=== PATIENT | female | born 1965 | race Two or more races ===

== ENCOUNTER 2018-09-08 21:14 | Inpatient (IN) | payer OTHER ==
[~2018-09-08] VITALS: Ht 157.5 cm; Wt 53.2 kg
--- NOTE | 2018-09-08 21:15 | NUR ---
BIB. C/O "WITNESSED SEIZURE ON SITE" PT BROUGHT IN UNRESPONSIVE. MD AWARE AND AT BEDSIDE.
--- NOTE | 2018-09-08 21:19 | NUR ---
PT INTUBATED BY DR PRINGLE. 7.5 ET TUBE @ 21
[2018-09-08 21:21] VITALS: BP 156/111
[2018-09-08] MEDS ORDERED: PROPOFOL 100 ML IV ONE (21:22)
--- NOTE | 2018-09-08 21:22 | NUR ---
RT @2119 PT INTUBATED BY ER WITH 7.5 ETT @21CM ON THE LIP. POSITIVE COLOR CHANGE ON CO2 DETECTOR, MIST IN TUBE, EQUAL CHEST RISE. PT PLACED ON MECH VENT ON MD ORDERED SETTINGS OF AC MODE RR 16, VT 500, FIO2 100%, PEEP 5.
[2018-09-08] MEDS ORDERED: IV NS 0.9% 1,000 ML BAG IV ONE ×2 (21:30→22:00)
[2018-09-08] MEDS ORDERED: ETOMIDATE 2 MG/ML VIAL IV ONE (21:30)
[2018-09-08] MEDS ORDERED: ROCURONIUM BROMIDE 100 MG/10 ML VIAL IV ONE (21:30)
[2018-09-08 21:38] LABS: BASOPHILS % (AUTO) 0.1 % (0.0-2.0); HEMATOCRIT 22 % (33-45); HEMOGLOBIN 7.5 g/dL (11.5-14.8); LYMPHOCYTES # (AUTO) 0.3 /CMM (0.8-4.8); LYMPHOCYTES % (AUTO) 2.3 % (20.0-44.0); MEAN CORPUSCULAR HGB CONC 33 g/dl (31.0-36.0); MEAN CORPUSCULAR VOLUME 96 fL (82-100); MONOCYTES # (AUTO) 0.3 /CMM (0.1-1.30); MONOCYTES % (AUTO) 2.6 % (2.0-12.0); NEUTROPHILS # (AUTO) 11.4 /CMM (1.8-8.9); PLATELET COUNT (AUTO) 252 /CMM (150-450); RED BLOOD CELL COUNT(AUTO) 2.35 MIL/uL (4.0-5.2)
[2018-09-08] MEDS ORDERED: CEFEPIME 1 GM VIAL IV STA (21:40)
[2018-09-08] MEDS ORDERED: PROPOFOL 100 ML ONE (21:43)
[2018-09-08 21:46] LABS: CALCIUM, SERUM 8.5 mg/dL (8.5-10.1); CARBON DIOXIDE 17 mmol/L (21-32); CHLORIDE 102 mmol/L (98-107); CREATININE 1.1 mg/dL (0.6-1.3); GLUCOSE 170 mg/dL (74-106); POTASSIUM 5.1 mmol/L (3.5-5.1); SODIUM SERUM 132 mmol/L (136-145); UREA NITROGEN, BLOOD 28 mg/dL (7-18)
[2018-09-08] MEDS ORDERED: LEVETIRACETAM (500MG) 1,000 MG in IV NS 0.9% 100 ML IV STA (21:47)
[2018-09-08 21:49] LABS: SERUM AMMONIA 7 umol/L (11-32)
[2018-09-08 21:52] LABS: ALANINE AMINOTRANSFERASE 23 U/L (12-78); ALBUMIN 2.5 g/dL (3.4-5.0); ALCOHOL, BLOOD < 3 mg/dL (0-0); ALKALINE PHOSPHATASE 67 U/L (46-116); ASPARTATE AMINOTRANSFERASE 21 U/L (15-37); BILIRUBIN,TOTAL 0.2 mg/dL (0.2-1.0); TOTAL PROTEIN, SERUM 6.8 g/dL (6.4-8.2)
[2018-09-08 21:53] LABS: ACETAMINOPHEN < 2 ug/ml (10-30); SALICYLATE < 2.8 mg/dL (2.8-20.0)
[2018-09-08] MEDS ORDERED: FENTANYL PF 100MCG/2ML AMPUL ONE (21:55)
[2018-09-08] MEDS ORDERED: VANCOMYCIN 1 GM in IV D5W 250 ML IV ONE (22:00)
[2018-09-08] MEDS ORDERED: FENTANYL PF 100MCG/2ML AMPUL IV ONE (22:00)
--- NOTE | 2018-09-08 22:01 | NUR ---
REPORTED LACTIC ACID OF 3.[address] PRINGLE
[2018-09-08 22:17] LABS: APPEARANCE,URINE Clear (CLEAR); BILIRUBIN,URINE Negative (NEGATIVE); BLOOD, URINE Moderate Ery/uL (NEGATIVE); COLOR,URINE Yellow (YELLOW); KETONES,URINE Negative (NEGATIVE); LEUKOCYTE ESTERASE ,URINE Negative (NEGATIVE); NITRITE, URINE Negative (NEGATIVE); PH,URINE 6.5 (5.0-8.0); PROTEIN,URINE >=300 mg/dl (NEGATIVE); UGLUCOSE Negative (NEGATIVE); UROBILINOGEN,URINE 0.2 EU/dL (0.2)
[2018-09-08] MEDS ORDERED: LEVETIRACETAM (500MG) 500 MG/5 ML VIAL IV ONE (22:29)
[2018-09-08] MEDS ORDERED: MEROPENEM 1 G VIAL IV ONE (22:29)
[2018-09-08] MEDS ORDERED: VANCOMYCIN 1 GM VIAL ONE (22:30)
[2018-09-08 22:33] LABS: THYROID STIMULATING HORMONE 6.227 uIU/mL (0.358-3.74)
[2018-09-08] MEDS ORDERED: CEFEPIME 1 GM VIAL ONE (22:35)
[2018-09-08 22:41] LABS: ABG OXYGEN SATURATION 99.1 % (92.0-98.5); ABG PCO2 35.1 mmHg (35.0-45.0); ABG PH 7.368 (7.350-7.450); ABG PO2 432.9 mmHg (75.0-100.0); COHb 0.3 % (0.5-1.5); MetHb 0.9 % (0.0-1.5); O2Hb 97.9 % (94.0-97.0); PEEP,BG 5 cm H2O; SITE, ABG Right Radial; VT, ABG 500 mL
[2018-09-08 22:46] LABS: RBC,URINE 21-50 /HPF (0-2)
[2018-09-08 22:47] LABS: BACTERIA,URINE None seen /HPF (None Seen); HYALINE CASTS, URINE Few /LPF (None Seen); SQUAMOUS EPITHELIAL CELL,UR Few /HPF (None Seen)
[2018-09-08] MEDS ORDERED: ACETAMINOPHEN 325 MG TABLET PO PRN (23:00)
[2018-09-08] MEDS ORDERED: ONDANSETRON HCL/PF 4 MG/2 ML VIAL IVP PRN (23:00)
[2018-09-08] MEDS ORDERED: CEFEPIME 1 GM in IV NS 0.9% 50 ML IV SCH (23:30)
[2018-09-08] MEDS ORDERED: IV D5/0.45 NACL 1,000 ML IV ONE (23:30)
--- NOTE | 2018-09-08 23:55 | NUR ---
REPORT GIVEN TO PRAKASH BAILEY.
[2018-09-09] VITALS (51 sets, daily range): BP systolic 84–182; BP diastolic 58–122
[2018-09-09] MEDS ORDERED: METRONIDAZOLE 500MG/ NS 100ML 100 ML IV ONE (00:10)
[2018-09-09] MEDS: METRONIDAZOLE 500MG/ NS 100ML 500 MG in PREMIX 1 EA IV SCH ×4 (00:11→22:34)
[2018-09-09] MEDS ORDERED: PRED5TAB48 PO (00:48)
[2018-09-09] MEDS ORDERED: HYDR200T4 PO (00:48)
[2018-09-09] MEDS ORDERED: LEVO112T2 PO (00:48)
[2018-09-09] MEDS ORDERED: CEFEPIME 1 GM VIAL ONE (00:50)
[2018-09-09] MEDS: PROPOFOL 100 ML IV PRN ×4 (00:51→19:52)
--- NOTE | 2018-09-09 01:00 | NUR ---
RN NOTES 23:45 PM - ADMITTED A PATIENT FROM ER ORALLY INTUBATED WITH ETT AND VENT SETTING TOLERATED WELL. NO ACUTE RESPIRATORY DISTRESS. RESPONSIVE TO PAIN AND TACTILE STIMULI.NO FACIAL COMPLAINED OF PAIN. AFEBRILE. PT IS SEDATED WITH DIPRIVAN ST ON TELE MONITOR. PERIPHERAL PULSES ARE STRONG. IV SITE ON RAC G 18 REJ G 20 RIGHT HAND G 20 AND FRANCESCA PICC LINE RUNNING WITH PROPOFOL, RECEIVED FROM ER @ 25 MCG/KG/MIN. LAB VALUE RESULT LACTIC 2.1, PROTOCOL INITIATED BY TITRATED PROTOCOL ORDER , FAMILY CAME AT BEDSIDE STATING THAT THE PATIENT HAD LAP BAND REMOVAL ABOUT 3 WEEKS AGO AT [facility]. KEPT PT CLEAN AND DRY , TURNED AND REPOSITIONED FOR COMFORT WILL CONTINUE TO MONITOR.
[2018-09-09 01:19] LABS: CSF GLUCOSE 62 mg/dL (40-70)
[2018-09-09 01:20] LABS: CSF PROTEIN 59.7 mg/dL (15-45)
[2018-09-09] MEDS ORDERED: LEVOTHYROXINE SODIUM 112 MCG TABLET PO SCH (06:00)
--- NOTE | 2018-09-09 08:10 | NUR ---
RN NOTES OGT PLACED WITH GOOD RESIDUAL AND HEARD GURGLING SOUND WITNESSED BY KIANNA BAILEY.
--- NOTE | 2018-09-09 08:20 | NUR ---
RN NOTES NOTED PATIENT WITH TEMPERATURE 101.1, COOLING MEASURES PROVIDED. TYLENOL PRN GIVEN ORDERED WILL MONITORED PT CLOSELY
--- NOTE | 2018-09-09 08:29 | NUR ---
FANCY SEWER NOTE RCVD CALL FROM DR. MCGEE, RADIOLOGIST WITH RECOMMENDATION OF PULLING ETT OUT ABOUT 1.5 CM. REPORT NOT PUBLISHED YET, LYNN HURLEY INFORMED. WILL F/U WITH MD FOR ORDER.
[2018-09-09] MEDS ORDERED: HYDROXYCHLOROQUINE 200 MG TABLET PO SCH (09:00)
[2018-09-09] MEDS ORDERED: PANTOPRAZOLE 40 MG VIAL IV SCH (09:00)
[2018-09-09] MEDS ORDERED: LEVETIRACETAM (500MG) 500 MG in IV NS 0.9% 100 ML IV SCH (09:00)
[2018-09-09] MEDS ORDERED: FEE PK DOSING 1 MIN EA MC ONE (09:11)
[2018-09-09 09:22] LABS: ABG OXYGEN SATURATION 98.9 % (92.0-98.5); ABG PCO2 22.3 mmHg (35.0-45.0); ABG PO2 199.8 mmHg (75.0-100.0); AaDO2 131.6 mmHg; MetHb 0.6 % (0.0-1.5); O2Hb 98.3 % (94.0-97.0); SITE, ABG Right Radial
--- NOTE | 2018-09-09 09:44 | NUR ---
RN NOTES 09:05 AM - CALLED LILLIAN HOSPITALITY SPECIALIST INFORMED ABOUT THE PATIENT CXY THAT ENDOTRACHEAL TUBE APPX. 1.3 CM ABOVE THE RAVEN AND RECOMMEND RETRACTION PER HOSPITALITY SPECIALIST AND RT TO PULL OUT 2 CM 09:25 AM - ABG RESULT INFORMED Ph 7.5 PCO2 22.3 PO2 199.8 HCO3 17 PER LILLIAN WILL WAIT FOR IRRIGATOR HEAD AND HE'LL DO HIS ROUNDS.
--- NOTE | 2018-09-09 09:45 | NUR ---
RN NOTES RT PULLED OUT 2CM , [facility] WILL FO[facility] TO VERIFY.
[2018-09-09] MEDS ORDERED: ETOMIDATE 2 MG/ML VIAL IV ONE (09:55)
[2018-09-09] MEDS ORDERED: ROCURONIUM BROMIDE 50 MG/5 ML IV ONE (09:55)
--- NOTE | 2018-09-09 09:59 | NUR ---
RT PT REC'D WITH ETT @21CM LIP LINE ON MECHANICAL VENT TOLERATING SETTINGS. ET TUBE PATENT AND SECURE, VENT ALARMS ON AND AUDIBLE AND PLUGGED IN RED OUTLET. PT SUCTIONED WITH MODERATE AMOUNT OF PALE YELLOW SECRETIONS. ETT WAS PULLED BACK 2CM AND NOW AT 19CM LIP LINE PER MD ORDER. NO RESPIRATORY DISTRESS NOTED AT THIS TIME. WILL CONTINUE TO MONITOR. Addendum: 09/09/18 at 1004 by MARCUS DIGGS RT Amended: Links added.
[2018-09-09] MEDS ORDERED: PANTOPRAZOLE 40 MG/PACK PACK GT SCH (10:00)
--- NOTE | 2018-09-09 10:51 | NUR ---
REAMING PRESS OPERATOR NOTE SEEN BY UPDATED ABOUT PATIENT CONDITION WITH XRAY REPORT.GOT NEW ORDER TO TAKE OFF PEEP.RT MADE AWARE.WILL CONTINUE TO MONITOR.
--- NOTE | 2018-09-09 10:54 | NUR ---
BABBITT SPINNER NOTE SEEN BY CROP SETTING OUT MACHINE OPERATOR MADE AWARE ABOUT BP TRENDING LOW.OFF FROM PEEP AND IVF.GOT NEW ORDERS.WILL CONTINUE TO MONITOR.
[2018-09-09] MEDS ORDERED: PHARMACY TO CHANGE PO MEDS TO GT/NG XX PRN (11:00)
[2018-09-09] MEDS ORDERED: ASPIRIN 81 MG TAB.CHEW GT SCH (11:30)
[2018-09-09] MEDS ORDERED: IV LR 500 ML IV ONE (11:30)
[2018-09-09] MEDS ORDERED: NOREPINEPHRINE 16 MG in IV D5W 500 ML IV PRN (11:30)
[2018-09-09] MEDS: ASPIRIN 81 MG TAB.CHEW NG SCH (11:36)
[2018-09-09 12:00] LABS: BASOPHILS % (AUTO) 0.1 % (0.0-2.0); EOSINOPHILS % (AUTO) 0.4 % (0.0-6.0); LYMPHOCYTES # (AUTO) 0.2 /CMM (0.8-4.8); LYMPHOCYTES % (AUTO) 1.8 % (20.0-44.0); MEAN CORPUSCULAR HGB CONC 34 g/dl (31.0-36.0); MEAN CORPUSCULAR VOLUME 94 fL (82-100); MONOCYTES # (AUTO) 0.2 /CMM (0.1-1.30); MONOCYTES % (AUTO) 1.7 % (2.0-12.0); PLATELET COUNT (AUTO) 166 /CMM (150-450); WHITE BLOOD COUNT (AUTO) 11.5 K/uL (4.3-11.0)
[2018-09-09] MEDS ORDERED: IV LR 1000 ML 500 ML IV ONE (12:00)
[2018-09-09] MEDS ORDERED: methylPREDNISolone SOD SUCC 125 MG/2ML VIAL IV SCH (12:00)
[2018-09-09] MEDS ORDERED: VANCOMYCIN 1 GM in IV D5W 250 ML IV SCH (12:00)
[2018-09-09 12:03] LABS: RED BLOOD CELL COUNT(AUTO) 1.83 MIL/uL (4.0-5.2)
--- NOTE | 2018-09-09 12:03 | NUR ---
RT NOTE PT ETT PULLED BACK TO 18CM LIP LINE FROM 19CM, AND NEW VENT CHANGES APPLIED PER MD ORDERS. PT COMFORTABLE, NO SOB NOTED AT THIS TIME. WILL CONTINUE TO MONITOR. Addendum: 09/09/18 at 1205 by MARCUS DIGGS RT Amended: Links added.
[2018-09-09 12:05] LABS: HEMATOCRIT 17 % (33-45); HEMOGLOBIN 5.8 g/dL (11.5-14.8)
[2018-09-09 12:27] LABS: LYMPHOCYTES % (MANUAL) 1 % (16-48); MONOCYTES % (MANUAL) 1 % (0-11.0); NEUTROPHILS % (MANUAL) 98 (42-76)
--- NOTE | 2018-09-09 13:00 | NUR ---
GRAPHIC ARTS TECHNICIAN NOTE CBC RESULT RELAYED TO WITH LOW H/H RESULT.GOT NEW ORDERS.WILL CONTINUE TO MONITOR.
[2018-09-09 14:03] LABS: IRON, SERUM 5 ug/dl (50-175); TOTAL IRON BINDING CAPACITY 155 ug/dl (250-450)
[2018-09-09] MEDS: methylPREDNISolone SOD SUCC 1,000 MG in IV NS 0.9% 250 ML IV SCH (14:03)
[2018-09-09] MEDS: ACETAMINOPHEN 650 MG/20.3 ML UDC NG PRN (15:18)
[2018-09-09] MEDS ORDERED: LORATADINE 10 MG TABLET PO SCH (16:00)
--- NOTE | 2018-09-09 16:30 | NUR ---
OYSTER PICKER NOTE SEEN BY NEUROLOGIST,SPOKE TO THE .UPDATED ABOUT PATIENT CONDITION WITH VITALS AND NEUROLOGICAL STATUS.WILL CONTINUE TO MONITOR.SEEN BY ID WOODYARD CRANE OPERATOR DEMI ,UPDATED PATIENT CONDITION WITH LABS AND ELEVATED TEMP.GOT NEW ORDERS.GOT CALL FROM LAB THAT PATIENT HAS ANTIBODY IN BLOOD ,MIGHT TAKE ANOTHER 4 HOUR FOR BLOOD.
[2018-09-09] MEDS: AZTREONAM 1 G in IV NS 0.9% 100 ML IV SCH (17:19)
--- NOTE | 2018-09-09 19:23 | NUR ---
TAX FORM PREPARER NOTE. BLOOD TRANSFUSION NOT DONE YET.COMPENSATION AND BENEFITS ADVISOR DMITIY MADE AWARE.H/H NOW.GOT NEW ORDER.ENDORSED TO PM NURSE FOR URBANO.LEVOPHED FOR LOW BP.
[2018-09-09 20:14] LABS: HEMOGLOBIN 5.6 g/dL (11.5-14.8)
--- NOTE | 2018-09-09 21:10 | NUR ---
RECEIVED NOTICE FROM LAB THAT PT PRBC WAS READY FOR APPAREL MANAGER. FIRST UNIT GIVEN AT THIS TIME. WILL MONITOR FOR ANY S/S OF ADVERSE REACTIONS. PT AFEBRILE WITH VS WNL.
[2018-09-09] MEDS: LEVETIRACETAM (500MG) 1,000 MG in IV NS 0.9% 100 ML IV SCH (21:36)
[2018-09-10] VITALS (60 sets, daily range): BP systolic 95–140; BP diastolic 52–102
--- NOTE | 2018-09-10 00:06 | NUR ---
PT REC'D ORALLY INTUBATED VIA ETT SZ 7.5 AT 18 CM @ THE LIP [facility]DE. NO RESP DISTRESS OR SOB NOTED. SX'D FOR THICK MOD AMT OF PALE YELLOW SECRETIONS. ALARMS ARE SET AND AUDIBLE. VENT PLUGGED INTO RED OUTLET. AMBU BAG BEDSIDE. WILL CONTINUE TO MONITOR. Addendum: 09/10/18 at 0008 by MIR FORRESTER RT Amended: Links added.
[2018-09-10] MEDS: AZTREONAM 1 G in IV NS 0.9% 100 ML IV SCH ×3 (00:17→17:07)
[2018-09-10] MEDS: PROPOFOL 100 ML IV PRN ×4 (01:38→20:46)
--- NOTE | 2018-09-10 03:49 | NUR ---
LAST BAG OF PRBC STARTED AND PT REMAINS AFEBRILE AND VS WNL. WILL CONTINUE TO MONITOR.
[2018-09-10] MEDS: METRONIDAZOLE 500MG/ NS 100ML 500 MG in PREMIX 1 EA IV SCH ×3 (06:32→22:38)
[2018-09-10] MEDS: LEVOTHYROXINE SODIUM 112 MCG TABLET NG SCH (06:36)
--- NOTE | 2018-09-10 07:20 | NUR ---
LAST BAG OF PRBC STILL INFUSING, PT STILL AFEBRILE WITH VS WNL. PT REMAINS INTUBATED AND SEDATED. VENT SETTING WELL TOLERATED AND NO ACUTE DISTRESS NOTED. ALL NEEDS ATTENDED TO PROMPTLY. ENDORSED CARE TO AM RN FOR CONTINUITY OF CARE.
[2018-09-10 07:46] LABS: ABG BASE EXCESS -6.8 mmol/L; ABG OXYGEN SATURATION 98.4 % (92.0-98.5); ABG PCO2 24.8 mmHg (35.0-45.0); ABG PH 7.433 (7.350-7.450); ABG PO2 156.3 mmHg (75.0-100.0); AaDO2 100.4 mmHg; COHb 0.3 % (0.5-1.5); MetHb 0.7 % (0.0-1.5); O2Hb 97.4 % (94.0-97.0); SITE, ABG Right Radial
--- NOTE | 2018-09-10 08:18 | NUR ---
ELECTRICAL REPAIRER NOTE RCVD PT SEDATED ON DIPRIVAN, INTUBATED TOLERATING ORDERED VENT SETTINGS. RESTRAINTS IN PLACE, CIRCULATION CHECKS DONE BILATERALLY, PULSES PRESENT, SKIN WARM TO TOUCH. SR ON MONITOR. OG-TUBE PLACEMENT VERIFIED BY ASPIRATION OF GASTRIC CONTENTS, CHACON TO GRAVITY DRAINING CLEAR, YELLOW URINE, IV SITES C/D/I/PATENT, NO S/O INFILTRATION/PHLEBITIS OBSERVED UPON FLUSHING. LAST PRBC INFUSED, VITALS REMAINED STABLE. WILL CONTINUE TO MONITOR PT FOR SAFETY AND COMFORT. BED IN LOW AND LOCKED POSITION. SEDATION VACATION DONE PT APPEARS DROWSY BUT ABLE TO FOLLOW COMMANDS AND ACKNOWLEDGE VERBAL INFORMATION. DR. YATES AT BEDSIDE UPDATED ON PT'S CONDITION.
[2018-09-10 08:57] LABS: BASOPHILS % (AUTO) 0.2 % (0.0-2.0); HEMATOCRIT 27 % (33-45); HEMOGLOBIN 9.2 g/dL (11.5-14.8); LYMPHOCYTES # (AUTO) 0.2 /CMM (0.8-4.8); LYMPHOCYTES % (AUTO) 1.6 % (20.0-44.0); MEAN CORPUSCULAR HGB CONC 34 g/dl (31.0-36.0); MEAN CORPUSCULAR VOLUME 92 fL (82-100); MONOCYTES # (AUTO) 0.2 /CMM (0.1-1.30); MONOCYTES % (AUTO) 1.4 % (2.0-12.0); NEUTROPHILS # (AUTO) 11.7 /CMM (1.8-8.9); NEUTROPHILS % (AUTO) 96.8 % (43.0-81.0); PLATELET COUNT (AUTO) 142 /CMM (150-450); RED BLOOD CELL COUNT(AUTO) 2.93 MIL/uL (4.0-5.2); WHITE BLOOD COUNT (AUTO) 12.1 K/uL (4.3-11.0)
[2018-09-10 09:07] LABS: CALCIUM, SERUM 7.8 mg/dL (8.5-10.1); POTASSIUM 4.2 mmol/L (3.5-5.1)
[2018-09-10] MEDS: LORATADINE 10 MG TABLET NG SCH (09:10)
[2018-09-10] MEDS: ASPIRIN 81 MG TAB.CHEW NG SCH (09:10)
[2018-09-10] MEDS: PANTOPRAZOLE 40 MG/PACK PACK NG SCH (09:11)
[2018-09-10] MEDS: LEVETIRACETAM (500MG) 1,000 MG in IV NS 0.9% 100 ML IV SCH ×2 (09:11→20:46)
[2018-09-10] MEDS: METOPROLOL TARTRATE 25 MG TABLET PO SCH ×2 (09:12→21:51)
[2018-09-10] MEDS: CYANOCOBALAMIN 1,000 MCG/ML VIAL IM SCH (12:14)
[2018-09-10] MEDS: methylPREDNISolone SOD SUCC 1,000 MG in IV NS 0.9% 250 ML IV SCH (13:08)
[2018-09-10] MEDS: IV NS 0.9% 1,000 ML IV PRN (13:10)
[2018-09-10] MEDS ORDERED: IV NS 0.9% 1,000 ML BAG IV PRN (13:30)
[2018-09-10] MEDS ORDERED: SOD FERRIC GLUC 125 MG in IV NS 0.9% 100 ML IV SCH (14:00)
--- NOTE | 2018-09-10 18:49 | NUR ---
RECREATION COUNSELOR NOTE PT REMAINS LIGHTLY SEDATED ON DIPRIVAN, EASILY AROUSED TO NAME, CONTINUES TO FOLLOW COMMANDS, SR ON MONITOR, TOLERATING ORDERED VENT SETTINGS, OG-TUBE CLAMPED, CHACON TO GRAVITY DRAINING CLEAR, YELLOW URINE (LILLIAN, HEAD OF BUSINESS DEVELOPMENT INFORMED ABOUT DECREASED URINARY OUTPUT AND IVF STARTED). RIGHT NECK AN DRUA PICC C/D/I/PATENT, NO S/O INFILTRATION/PHLEBITIS OBSERVED, IVF INFUSING ORDERED. PT'S CARE WILL BE ENDORSED TO LEGAL COUNSEL RN FOR CONTINUITY OF CARE, BED IN LOW AND LOCKED POSITION, CALL LIGHT WITHIN REACH.
[2018-09-10 19:57] LABS: OCCULT BLOOD STOOL NEGATIVE (NEGATIVE)
[2018-09-10] MEDS ORDERED: ATORVASTATIN 40 MG TABLET PO SCH (22:00)
[2018-09-11] VITALS (50 sets, daily range): BP systolic 121–186; BP diastolic 82–123
[2018-09-11] MEDS: AZTREONAM 1 G in IV NS 0.9% 100 ML IV SCH ×3 (01:07→16:38)
[2018-09-11] MEDS: IV NS 0.9% 1,000 ML IV PRN (03:03)
--- NOTE | 2018-09-11 04:26 | NUR ---
RT NOTE PT REC'D ORALLY INTUBATED VIA ETT SZ 7.5 AT 19 CM [facility] ON AC MODE. NO RESP DISTRESS OR SOB NOTED. SX'D FOR THICK small AMT OF clear SECRETIONS. ALARMS ARE SET AND AUDIBLE. VENT PLUGGED INTO RED OUTLET. AMBU BAG BEDSIDE. WILL CONTINUE TO MONITOR. Addendum: 09/11/18 at 0426 by MIR FORRESTER RT Amended: Links added.
[2018-09-11 04:39] LABS: BASOPHILS % (AUTO) 0.1 % (0.0-2.0); HEMATOCRIT 27 % (33-45); HEMOGLOBIN 9.1 g/dL (11.5-14.8); LYMPHOCYTES # (AUTO) 0.2 /CMM (0.8-4.8); LYMPHOCYTES % (AUTO) 1.6 % (20.0-44.0); MEAN CORPUSCULAR HGB CONC 34 g/dl (31.0-36.0); MEAN CORPUSCULAR VOLUME 93 fL (82-100); MONOCYTES # (AUTO) 0.2 /CMM (0.1-1.30); MONOCYTES % (AUTO) 1.6 % (2.0-12.0); NEUTROPHILS # (AUTO) 12.2 /CMM (1.8-8.9); NEUTROPHILS % (AUTO) 96.7 % (43.0-81.0); PLATELET COUNT (AUTO) 160 /CMM (150-450); RED BLOOD CELL COUNT(AUTO) 2.88 MIL/uL (4.0-5.2); WHITE BLOOD COUNT (AUTO) 12.6 K/uL (4.3-11.0)
[2018-09-11 04:54] LABS: ALBUMIN 1.9 g/dL (3.4-5.0); BILIRUBIN,TOTAL 0.3 mg/dL (0.2-1.0); CALCIUM, SERUM 7.8 mg/dL (8.5-10.1); POTASSIUM 3.8 mmol/L (3.5-5.1); TOTAL PROTEIN, SERUM 5.4 g/dL (6.4-8.2)
[2018-09-11] MEDS: PROPOFOL 100 ML IV PRN ×3 (05:27→20:35)
[2018-09-11] MEDS: LEVOTHYROXINE SODIUM 112 MCG TABLET NG SCH (06:35)
[2018-09-11] MEDS: METRONIDAZOLE 500MG/ NS 100ML 500 MG in PREMIX 1 EA IV SCH ×3 (06:35→22:59)
--- NOTE | 2018-09-11 07:45 | NUR ---
ICU/RN: Pt seen and examined at bedside by MCKAYLA Diaz. Updated on labs, pt status, no distress noted. New orders noted and carried out. Per HVAC/R SERVICE TECHNICIAN, case dw family at length telephonically. Will continue to monitor pt status.
[2018-09-11] MEDS ORDERED: DC PROPOFOL WHEN EXTUBATED XX PRN (08:00)
[2018-09-11] MEDS: LORATADINE 10 MG TABLET NG SCH (08:06)
[2018-09-11] MEDS: METOPROLOL TARTRATE 25 MG TABLET PO SCH ×2 (08:06→21:00)
[2018-09-11] MEDS: ASPIRIN 81 MG TAB.CHEW NG SCH (08:06)
--- NOTE | 2018-09-11 08:17 | NUR ---
RT PATIENT REC'D ORALLY INTUBATED ON MECH VENT AUGUSTO WELL. SEDATION TURNED OFF AND PATIENT AWAKE AND RESPONSIVE. PER MD ORDER PATIENT PLACED ON SIMV SPONT BREATHING TRIAL. VENT ALARMS CHECKED + AUDIBLE. PATIENT SUCTIONED WITH SMALL AMT OF PALE SEMI-THICK SECRETIONS. B/S DIM CLEAR. AMBU BAG AT [facility]. ALL SAFETY MEASURES IN PLACE. CONT TO MONITOR CLOSELY. Addendum: 09/11/18 at 0820 by BAILEE CAMARILLO RT Amended: Links added.
[2018-09-11] MEDS: PANTOPRAZOLE 40 MG/PACK PACK NG SCH (08:27)
[2018-09-11] MEDS: LEVETIRACETAM (500MG) 1,000 MG in IV NS 0.9% 100 ML IV SCH (08:56)
[2018-09-11] MEDS: CYANOCOBALAMIN 1,000 MCG/ML VIAL IM SCH (08:56)
[2018-09-11 09:15] LABS: ABG BASE EXCESS -9.6 mmol/L; ABG OXYGEN SATURATION 96.5 % (92.0-98.5); ABG PCO2 23.4 mmHg (35.0-45.0); ABG PH 7.388 (7.350-7.450); AaDO2 162.3 mmHg; COHb 0.3 % (0.5-1.5); MetHb 0.6 % (0.0-1.5); O2Hb 95.6 % (94.0-97.0); SITE, ABG Right Radial
[2018-09-11] MEDS: FUROSEMIDE 40 MG/4 ML VIAL IV SCH ×2 (09:15→15:25)
[2018-09-11 09:45] LABS: CHOLESTEROL 209 mg/dL (<200); HDL CHOLESTEROL 36 mg/dL (40-60); LDL 117 mg/dL (0-99); TRIGLYCERIDES 248 mg/dL (30-150)
--- NOTE | 2018-09-11 09:45 | NUR ---
ICU/RN: Dr Hardy rounds; updated on pt status. ABGs and labs reviewed. Orders noted and carried out.
--- NOTE | 2018-09-11 10:00 | NUR ---
ICU/RN: Pt s/p extubation; placed on NC at 6L/min. O2 sat 93%; Dr Hardy at bedside and aware.
--- NOTE | 2018-09-11 10:00 | NUR ---
RT PER DR GALLAGHER PATIENT WAS WEANED ON VENT AND EXTUBATED. PLACED ON 5L N/C MAINTAINING SPO2 ABOVE 92% WITH NO COMPLAINTS OF SOB Addendum: 09/11/18 at 1012 by BAILEE CAMARILLO RT Amended: Links added.
--- NOTE | 2018-09-11 11:30 | NUR ---
ICU/RN: Pt tolerated lunch, 50% intake. HOB elevated, aspiration precautions in place. at bedside assisting with ADL's.
[2018-09-11] MEDS: methylPREDNISolone SOD SUCC 1,000 MG in IV NS 0.9% 250 ML IV SCH (14:33)
--- NOTE | 2018-09-11 15:00 | NUR ---
ICU/RN: Pt noted to be increasingly tachypneic; placed on simple mask. Increased BP and HR from baseline. Will reassess effectiveness.
--- NOTE | 2018-09-11 15:15 | NUR ---
ICU/RN: Dr Hardy at bedside; pt tachypneic and anxious. Pt placed on BiPAP per MD order. Addendum: 09/11/18 at 2009 by JESUS MAZARIEGOS RN ABG drawn; reported to MD. Placed back on SM. Cont to monitor per MD.
[2018-09-11] MEDS ORDERED: FUROSEMIDE 40 MG/4 ML VIAL IV SCH (15:30)
[2018-09-11 15:33] LABS: ABG BASE EXCESS -9.7 mmol/L; ABG OXYGEN SATURATION 95.8 % (92.0-98.5); ABG PCO2 21.2 mmHg (35.0-45.0); ABG PH 7.406 (7.350-7.450); ABG PO2 86.7 mmHg (75.0-100.0); AaDO2 317.8 mmHg; COHb 0.2 % (0.5-1.5); MetHb 0.4 % (0.0-1.5); O2Hb 95.2 % (94.0-97.0); SITE, ABG Right Radial
--- NOTE | 2018-09-11 16:24 | NUR ---
RT PATIENT REQUIRED TO BE INTUBATED AGAIN. 7.5 ETT SECURED AT 21CM LIP. PLACED ON PREVIOUS VENT SETTINGS AUGUSTO WELL. VENT ALARMS CHECKED + AUDIBLE. AMBU BAG AT HOB Addendum: 09/11/18 at 1626 by BAILEE CAMARILLO RT Amended: Links added.
--- NOTE | 2018-09-11 16:30 | NUR ---
ICU/RN: Pt s/p intubation; pt with periods of desaturation in low to mid 80's upon removal of supplemental O2 during intubation. Dr Hardy and ER MD at bedside. Vent settings and other changes noted and carried out.
--- NOTE | 2018-09-11 17:00 | NUR ---
ICU/RN: , Bryant updated on pt status telephonically, will be in to see and sign consent for authorization to release medical records to obtain oncology MD notes.
[2018-09-11] MEDS: LORAZEPAM INJ 2 MG/ML VIAL IV PRN ×2 (17:27→20:41)
--- NOTE | 2018-09-11 17:30 | NUR ---
ICU/RN: Repeat ABG drawn; reported to MD with orders for vent changes. Noted and carried out. Currently sedated on diprivan at 45mcg/kg/min.
[2018-09-11 17:52] LABS: ABG BASE EXCESS -12.2 mmol/L; ABG OXYGEN SATURATION 98.3 % (92.0-98.5); ABG PCO2 27.5 mmHg (35.0-45.0); ABG PH 7.287 (7.350-7.450); ABG PO2 150.5 mmHg (75.0-100.0); COHb 0.1 % (0.5-1.5); MetHb 0.9 % (0.0-1.5); O2Hb 97.3 % (94.0-97.0); SITE, ABG Right Radial; VENT MODE, BG AC 12 450 +5 100%
--- NOTE | 2018-09-11 19:20 | NUR ---
ICU/RN: Pt in bed, eyes closed, HR improved from 150's to [address] SBP back within baseline. FC draining well to gravity with total of 1800 cc clear yellow out. OGT clamped. Restraint care rendered. Report given to LYNN Zendejas for URBANO. Faxed requests to pt's primary oncologist's office. Awaiting response.
[2018-09-11] MEDS ORDERED: LEVETIRACETAM SOL (5 ML) 100 MG/ML UDC GT SCH (21:00)
[2018-09-11] MEDS: KEPPRA 1000 MG in IV NS 100 ML IV SCH (21:09)
[2018-09-11] MEDS: ATORVASTATIN 40 MG TABLET GT SCH (22:00)
[2018-09-11] MEDS: hydrALAZINE HCL IV 20 MG VIAL IV PRN (22:54)
[2018-09-12] VITALS (52 sets, daily range): BP systolic 116–139; BP diastolic 62–95
[2018-09-12] MEDS ORDERED: METOPROLOL TARTRATE INJ 5 MG/5 ML AMPUL ONE (00:25)
[2018-09-12] MEDS: PROPOFOL 100 ML IV PRN ×4 (00:35→19:03)
[2018-09-12] MEDS: METOPROLOL TARTRATE INJ 5 MG/5 ML AMPUL IVP PRN (00:46)
[2018-09-12] MEDS: AZTREONAM 1 G in IV NS 0.9% 100 ML IV SCH ×3 (01:00→17:57)
[2018-09-12] MEDS: ACETAMINOPHEN 650 MG/20.3 ML UDC NG PRN (03:16)
--- NOTE | 2018-09-12 03:21 | NUR ---
RN NOTES RECEIVED PATIENT IN BED, SEDATED, AT BEDSIDE. NOTED INCREASED HEART RATE 136, LABORED AND SHALLOW BREATHING WITH RESPIRATION OF 35-45BPM. O2SAT 100%O ON BIPAP. ORDERS RECEIVED TO CHANGE PROTONIX TO PEPCID IV STARTING TOMORROW, CHANGE LOPRESSOR TO IV PRN Q6H. NOTED AND CARRIED OUT. ON PROPOFOL DRIP, NO SIDE EFFECTS NOTED. ATIVAN GIVEN FOR AGITATION. FACIAL GRIMACE NOTED. KEPT CLEAN AND DRY.
[2018-09-12 05:06] LABS: BASOPHILS % (AUTO) 0.1 % (0.0-2.0); HEMATOCRIT 31 % (33-45); HEMOGLOBIN 10.5 g/dL (11.5-14.8); LYMPHOCYTES # (AUTO) 0.2 /CMM (0.8-4.8); LYMPHOCYTES % (AUTO) 1.1 % (20.0-44.0); MEAN CORPUSCULAR HGB CONC 34 g/dl (31.0-36.0); MEAN CORPUSCULAR VOLUME 93 fL (82-100); MONOCYTES # (AUTO) 0.2 /CMM (0.1-1.30); MONOCYTES % (AUTO) 1.3 % (2.0-12.0); NEUTROPHILS # (AUTO) 15.5 /CMM (1.8-8.9); NEUTROPHILS % (AUTO) 97.5 % (43.0-81.0); PLATELET COUNT (AUTO) 206 /CMM (150-450); RED BLOOD CELL COUNT(AUTO) 3.33 MIL/uL (4.0-5.2); WHITE BLOOD COUNT (AUTO) 15.9 K/uL (4.3-11.0)
[2018-09-12 05:16] LABS: CALCIUM, SERUM 8.2 mg/dL (8.5-10.1); POTASSIUM 3.6 mmol/L (3.5-5.1)
--- NOTE | 2018-09-12 06:55 | NUR ---
RN NOTES FROM LAB CRITICAL LEVEL OF TROPONIN 5.721, RELAYED TO MD DR. CLEARY, WILL GIVE ORDERS LATER. FROM IMAGING, RESULT OF ENDOTRACHEAL TUBE SLIGHTLY CLOSE TO TRACHEA, NEEDS TO BE RETRACTED BY 1.5 CM AND IMPRESSION OF NEW NASAL GASTRIC WITH TIP IN STOMACH. KEPT CLEAN AND DRY. WILL ENDORSE TO AM SHIFT FOR CONTINUITY OF CARE
[2018-09-12] MEDS: METRONIDAZOLE 500MG/ NS 100ML 500 MG in PREMIX 1 EA IV SCH ×3 (07:05→23:22)
--- NOTE | 2018-09-12 07:08 | NUR ---
rn notes called rt, relayed result of imaging. spoke with huma. orders placed.
--- NOTE | 2018-09-12 08:14 | NUR ---
RIGGING HELPER NOTE RCVD PT SEDATED, INTUBATED, SR ON MONITOR, BILATERAL SOFT WRIST RESTRAINTS IN PLACE, CIRCULATION CHECKS DONE, PULSES PRESENT BILATERALLY, SKIN WARM TO TOUCH. EDEMA PRESENT ON BILATERAL LOWER EXTREMITIES AND BILATERAL HANDS. OG-TUBE PLACEMENT VERIFIED BY ASPIRATION OF GASTRIC CONTENT, CHACON TO GRAVITY DRAINING CLEAR, YELLOW URINE, IV SITES C/D/I/PATENT. NO S/O INFILTRATION/PHLEBITIS OBSERVED UPON FLUSHING. WILL CONTINUE TO MONITOR PT FOR SAFETY AND COMFORT. BED IN LOW AND LOCKED POSITION, CALL LIGHT WITHIN REACH, HEAD OF BED ELEVATED.
[2018-09-12 08:48] LABS: ABG BASE EXCESS -6.6 mmol/L; ABG OXYGEN SATURATION 98.5 % (92.0-98.5); ABG PCO2 23.8 mmHg (35.0-45.0); ABG PH 7.446 (7.350-7.450); ABG PO2 174.7 mmHg (75.0-100.0); AaDO2 83.1 mmHg; COHb 0.3 % (0.5-1.5); MetHb 0.7 % (0.0-1.5); O2Hb 97.5 % (94.0-97.0); PEEP,BG 5 cm H2O; SITE, ABG Right Radial; VENT MODE, BG AC MODE; VT, ABG 450 mL
[2018-09-12] MEDS: KEPPRA 1000 MG in IV NS 100 ML IV SCH ×2 (09:38→20:32)
[2018-09-12] MEDS: METOPROLOL TARTRATE 25 MG TABLET PO SCH ×2 (09:40→21:26)
[2018-09-12] MEDS: LORATADINE 10 MG TABLET NG SCH (09:40)
[2018-09-12] MEDS: FAMOTIDINE/PF INJ 20 MG/2 ML VIAL IV SCH ×2 (09:41→21:26)
[2018-09-12] MEDS: CYANOCOBALAMIN 1,000 MCG/ML VIAL IM SCH (09:41)
[2018-09-12] MEDS: LEVOTHYROXINE INJ 100 MCG VIAL IV SCH (09:41)
[2018-09-12] MEDS: FUROSEMIDE 100 MG/10 ML VIAL IV SCH ×3 (10:03→17:59)
--- NOTE | 2018-09-12 10:19 | NUR ---
CAT SITTER NOTE SEDATION VACATION DONE, PT ABLE TO OPEN EYES TO NAME AND FOLLOW SIMPLE COMMANDS SUCH OPENING AND CLOSING BILATERAL HANDS AND MOVING BILATERAL FEET. WILL CONTINUE TO MONITOR, PT ORIENTED TO PLACE, TIME AND SITUATION.
[2018-09-12] MEDS ORDERED: FEE EMEERGENCY 1 MIN EA MC ONE (10:47)
[2018-09-12] MEDS ORDERED: ETOMIDATE 2 MG/ML VIAL IV ONE (10:47)
[2018-09-12] MEDS ORDERED: SUCCINYLCHOLINE CHLORIDE 20 MG/ML VIAL IV ONE (10:47)
[2018-09-12 15:08] LABS: *HSV 2 DNA PCR Negative (Negative)
[2018-09-12] MEDS: methylPREDNISolone SOD SUCC 125 MG/2ML VIAL IV SCH (17:58)
--- NOTE | 2018-09-12 18:27 | NUR ---
RT END OF THE SHIFT REPORT, PT. 53 Y OLD FEMALE REC. @0700 AM ORALLY INTUBATED ETT #7.5 @ 21.5 CM LIP LINE. T/O MORNING ETT ADJUDTED (PULLED BACK 1.5 CM) PLACED AND SECURED 20 CM LIP LINE. ON VENT WITH NOTED SETTINGS, ALARMS ARE SET AND FUNCTIONAL, NO DISTRESS NOTED T/O SHIFT.VENT CHANGES PER DR. GALLAGHER RR TO 16 PT. SUX'D FOR MINIMAL WHITE LOSE SECRETIONS, BILATERALLY RHONCHI B/S AND EQUAL CHEST RISE NOTED. HME CHANGED, TRACTOR EXPERT DONE. PT. REMAIN STABLE AND AMBU BAG REMAIN AT THE BEDSIDE, REPORT WILL PASS TO PM SHIFT. Addendum: 09/12/18 at 1830 by ALDAIR CABRAL RT Amended: Links added.
--- NOTE | 2018-09-12 18:33 | NUR ---
EMPLOYMENT COORDINATOR NOTE PT REMAINS LIGHTLY SEDATED, ABLE TO OPEN EYES TO NAME AND FOLLOW SIMPLE COMMANDS. SR ON MONITOR, TOLERATING ORDERED VENT SETTINGS, OG-TUBE PLACEMENT VERIFIED BY ASPIRATION OF GASTRIC CONTENTS, CHACON TO GRAVITY DRAINING CLEAR, YELLOW URINE, IV SITES C/D/I/PATENT, NO S/O INFILTRATION/PHLEBITIS OBSERVED UPON FLUSHING. PT'S CARE WILL BE ENDORSED TO STALLION KEEPER RN FOR CONTINUITY OF CARE, BED IN LOW AND LOCKED POSITION, CALL LIGHT WITHIN REACH, HEAD OF BED ELEVATED.
--- NOTE | 2018-09-12 20:49 | NUR ---
RECEIVED PT INTUBATED 7.5 ETT SECURED AT 20CM AT THE LIP. NO RESP DISTRESS. PT TOLERATING VENT SETTINGS. ETT SECURED, CUFF CORRECTIONAL CASEWORK SPECIALIST. VENT ALARMS SET AND AUDIBLE. AMBU BAG AT BEDSIDE. VENT PLUGGED INTO RED OUTLET. WILL CONTINUE TO MONITOR. Addendum: 09/12/18 at 2050 by LUCIUS MACE RT Amended: Links added.
[2018-09-12] MEDS: ATORVASTATIN 40 MG TABLET GT SCH (21:26)
[2018-09-13] VITALS (42 sets, daily range): BP systolic 129–159; BP diastolic 74–101
[2018-09-13] MEDS: AZTREONAM 1 G in IV NS 0.9% 100 ML IV SCH ×3 (02:32→17:28)
[2018-09-13 04:56] LABS: CREATININE 0.9 mg/dL (0.6-1.3); POTASSIUM 3.1 mmol/L (3.5-5.1)
[2018-09-13] MEDS: PROPOFOL 100 ML IV PRN ×2 (06:00→13:50)
[2018-09-13] MEDS: METRONIDAZOLE 500MG/ NS 100ML 500 MG in PREMIX 1 EA IV SCH ×3 (06:08→23:16)
--- NOTE | 2018-09-13 08:00 | NUR ---
ICU/RN AM SHIFT INITIAL NOTES RECEIVED PT AWAKE IN BED, PT A/O X 3, ABLE TO MAKE HER NEEDS KNOWN BY NODDING OR BLINKING EYES. NO ACUTE RESPIRATORY DISTRESS, ETT IN PLACED WITH LIP @ 7.5, VENT SETTING RATES SET PRESCRIBED, SATURATING @ 100%, LUNG SOUNDS CLEAR. RESPIRATIONS EVEN AND UNLABORED, SUCTIONED FOR AIRWAY CLEARANCE. ON TELE MONITORING WITH SINUS RHYTHM, HR 89. OG-TUBE IN PLACED, PT ON NPO STATUS EXCEPT MEDS. FLUSHED TO MAINTAIN PATENCY. BILATERAL SOFT WRISTS RESTRAINTS IN PLACED, RELEASED TO CHECKED FOR CIRCULATION AND COMFORT THEN PLACED BACK. PICC LINE POSITIVE OF BLOOD RETURN, FLUSHED, WITH ON GOING INFUSION OF PROPOFOL @ 20MCG/KG/MIN. CHACON CATHETER INTACT, NOTED WITH CLEAR YELLOW URINE OUTPUT. SCHEDULED AM MEDS TO BE GIVEN. CL WITHIN REACHED AND SAFETY MAINTAINED. ON GOING MONITORING.
--- NOTE | 2018-09-13 08:00 | NUR ---
ICU/RN LOG IN ERROR - MEDICATION SCHEDULED AM MEDS WAS ADMINISTERED BY MYSELF AND NOT HARRIET DOWNING RN (PM NURSE). MISTAKENLY SCANNED UNDER HIS NAME. PHARMACY ([facility]) MADE AWARE.
[2018-09-13] MEDS: POTASSIUM CHLORIDE 20 MEQ POWDER PACKET NG SCH ×3 (08:25→11:25)
[2018-09-13] MEDS: LORATADINE 10 MG TABLET NG SCH (08:25)
[2018-09-13] MEDS: FUROSEMIDE 100 MG/10 ML VIAL IV SCH ×3 (08:26→15:04)
[2018-09-13] MEDS: LEVOTHYROXINE INJ 100 MCG VIAL IV SCH (08:26)
[2018-09-13] MEDS: CYANOCOBALAMIN 1,000 MCG/ML VIAL IM SCH (08:27)
[2018-09-13] MEDS: FAMOTIDINE/PF INJ 20 MG/2 ML VIAL IV SCH ×2 (08:27→20:48)
[2018-09-13] MEDS: METOPROLOL TARTRATE 25 MG TABLET PO SCH ×2 (08:30→20:49)
[2018-09-13] MEDS: methylPREDNISolone SOD SUCC 125 MG/2ML VIAL IV SCH (08:30)
[2018-09-13] MEDS: KEPPRA 1000 MG in IV NS 100 ML IV SCH (08:31)
[2018-09-13 08:35] LABS: ABG BASE EXCESS -2.2 mmol/L; ABG OXYGEN SATURATION 98.5 % (92.0-98.5); ABG PCO2 27.6 mmHg (35.0-45.0); ABG PH 7.485 (7.350-7.450); ABG PO2 193.5 mmHg (75.0-100.0); COHb 0.3 % (0.5-1.5); MetHb 0.7 % (0.0-1.5); O2Hb 97.5 % (94.0-97.0); SITE, ABG Right Radial
--- NOTE | 2018-09-13 12:00 | NUR ---
ICU/RN NOON ROUNDS PT REPOSITIONED AND SUCTIONED, NO CHANGE OF CONDITION.
--- NOTE | 2018-09-13 16:17 | NUR ---
ICU/RN MEDICAL RECORDS FROM DR. FISHMAN RECEIVED MEDICAL RECORDS FROM DR. FISHMAN'S OFFICE. DR. PUGH NOTIFIED. FILED IN PT'S CHART. Addendum: 09/13/18 at 1619 by DUARTE BAR RN ADDENDUM: ALSO NOTIFIED PT'S
--- NOTE | 2018-09-13 17:30 | NUR ---
ICU/RN AFTERNOON ROUNDS PM CARE PROVIDED, SUCTIONED AND REPOSITIONED. NO CHANGE OF CONDITION.
--- NOTE | 2018-09-13 19:02 | NUR ---
ICU/RN AM SHIFT END NOTES ALL NEEDS MET, NO ACUTE CHANGE OF CONDITION NOTED DURING THE SHIFT. PT ENDORSED TO PM NURSE TO CONTINUE CARE. CL WITHIN REACHED AND SAFETY MAINTAINED.
[2018-09-13] MEDS: LEVETIRACETAM SOL (5 ML) 100 MG/ML UDC GT SCH (20:48)
[2018-09-13] MEDS: ATORVASTATIN 40 MG TABLET GT SCH (21:06)
[2018-09-14] VITALS (54 sets, daily range): BP systolic 129–168; BP diastolic 67–109
[2018-09-14] MEDS: AZTREONAM 1 G in IV NS 0.9% 100 ML IV SCH ×3 (01:38→16:39)
[2018-09-14] MEDS: PROPOFOL 100 ML IV PRN (02:38)
[2018-09-14 04:55] LABS: BASOPHILS % (AUTO) 0.1 % (0.0-2.0); EOSINOPHILS % (AUTO) 0.1 % (0.0-6.0); HEMATOCRIT 31 % (33-45); HEMOGLOBIN 10.8 g/dL (11.5-14.8); LYMPHOCYTES # (AUTO) 0.4 /CMM (0.8-4.8); LYMPHOCYTES % (AUTO) 4.8 % (20.0-44.0); MEAN CORPUSCULAR HGB CONC 34 g/dl (31.0-36.0); MEAN CORPUSCULAR VOLUME 92 fL (82-100); MONOCYTES # (AUTO) 0.2 /CMM (0.1-1.30); MONOCYTES % (AUTO) 1.9 % (2.0-12.0); NEUTROPHILS # (AUTO) 7.3 /CMM (1.8-8.9); NEUTROPHILS % (AUTO) 93.1 % (43.0-81.0); PLATELET COUNT (AUTO) 208 /CMM (150-450); WHITE BLOOD COUNT (AUTO) 7.9 K/uL (4.3-11.0)
[2018-09-14 05:23] LABS: CALCIUM, SERUM 8.4 mg/dL (8.5-10.1); CREATININE 0.8 mg/dL (0.6-1.3); MAGNESIUM 2.2 mg/dL (1.8-2.4); PHOSPHORUS 2.5 mg/dL (2.5-4.9)
[2018-09-14] MEDS: METRONIDAZOLE 500MG/ NS 100ML 500 MG in PREMIX 1 EA IV SCH ×2 (06:11→15:07)
--- NOTE | 2018-09-14 06:50 | NUR ---
PT REMAINS IN NO ACUTE DISTRESS IN BED. PT DID NOT HAVE ANY SIGNIFICANT CHANGE IN CONDITION DURING SHIFT. ALL NEEDS MET, ALL ORDERS CARRIED OUT. PT TOLERATED VENT SETTING WELL. WILL ENDORSE CARE TO AM RN FOR CONTINUITY OF CARE.
--- NOTE | 2018-09-14 07:20 | NUR ---
RN NOTE: RECEIVED PATIENT IN BED, AWAKE, NONVERBAL, BUT MOUTH WORDS. ON MECHANICAL VENTILATOR AND WAS SATURATING 100% WITH CURRENT VENTILATOR SETTING AC 16 TV 450 FIO2= 40% PEEP 0. OGT NOTED IN PLACED, PLACEMENT CHECKED. ETT 7.5 ATTACHED TO LIP LINE AT 20 CM. PATIENT KEPT NPO EXCEPT MEDICATIONS. ALL PO MEDS WERE GIVEN THROUGH THE OGT. NO FACIAL GRIMACING NOTED. ON (B) SOFT WRIST RESTRAINTS FOR SAFETY. HOB ELEVATED. CHACON CATHETER IN PLACED DRAINING YELLOW URINE TO GRAVITY. (R) UA PICC LINE NOTED IN PLACED. POTASSIUM WILL BE REPLACED PER DR. WAGNER'S ORDER. BED ALARMED AND LOCKED AT ALL TIMES. CALL LIGHT WITHIN REACH. NEEDS ANTICIPATED. ON SEIZURE AND ASPIRATION PRECAUTION.
[2018-09-14] MEDS: POTASSIUM CHLORIDE 20 MEQ POWDER PACKET NG SCH ×3 (07:50→10:14)
--- NOTE | 2018-09-14 08:30 | NUR ---
RN NOTE: PATIENT'S CURRENT VENTILATOR SETTING WAS SWITCHED TO CPAP MODE PER DR. GALLAGHER'S ORDER. PATIENT'S BP AND HR WAS NOTED ELEVATED (PLS SEE DATASCOPE FLOWSHEET). DR. GALLAGHER MADE AWARE AND PATIENT WAS CLOSELY MONITORED.
[2018-09-14] MEDS: hydrALAZINE HCL IV 20 MG VIAL IV PRN (08:40)
[2018-09-14] MEDS: CYANOCOBALAMIN 1,000 MCG/ML VIAL IM SCH (08:55)
[2018-09-14] MEDS: LORATADINE 10 MG TABLET NG SCH (08:56)
[2018-09-14] MEDS: FAMOTIDINE/PF INJ 20 MG/2 ML VIAL IV SCH ×2 (08:57→21:50)
[2018-09-14] MEDS: LEVETIRACETAM SOL (5 ML) 100 MG/ML UDC GT SCH ×2 (08:57→21:50)
[2018-09-14] MEDS: LEVOTHYROXINE INJ 100 MCG VIAL IV SCH (08:58)
[2018-09-14] MEDS: methylPREDNISolone SOD SUCC 125 MG/2ML VIAL IV SCH (08:58)
[2018-09-14] MEDS: METOPROLOL TARTRATE 25 MG TABLET PO SCH ×2 (08:59→21:51)
[2018-09-14] MEDS ORDERED: DC PROPOFOL WHEN EXTUBATED XX PRN (09:00)
[2018-09-14] MEDS: METOPROLOL TARTRATE INJ 5 MG/5 ML AMPUL IVP PRN (09:06)
[2018-09-14 09:30] LABS: ABG BASE EXCESS 0.6 mmol/L; ABG OXYGEN SATURATION 98.6 % (92.0-98.5); ABG PH 7.533 (7.350-7.450); ABG PO2 184.6 mmHg (75.0-100.0); AaDO2 69.6 mmHg; COHb 0.1 % (0.5-1.5); MetHb 0.8 % (0.0-1.5); O2Hb 97.7 % (94.0-97.0); PEEP,BG 5 cm H2O; SITE, ABG Right Radial; VENT MODE, BG CPAP PS 15
--- NOTE | 2018-09-14 09:45 | NUR ---
RN NOTE: ABG RESULT WAS RECEIVED AND DR. GALLAGHER WAS MADE AWARE. PATIENT'S CURRENT BP WAS 146/92 AND HR 108. PER MD, NO CHANGES ON CURRENT MECHANICAL VENT MODE OF CPAP.
[2018-09-14] MEDS: ACETAMINOPHEN 650 MG/20.3 ML UDC NG PRN (10:14)
--- NOTE | 2018-09-14 10:14 | NUR ---
RN NOTE: PATIENT'S AXILLARY TEMP WAS NOTED 100.0F. PATIENT WAS GIVEN TYLENOL PER MD ORDER. WILL RECHECK TEMP AFTER 1 HR. FAMILY WAS PRESENT AT THE BEDSIDE. PATIENT DENIED ANY DISCOMFORT/PAIN.
--- NOTE | 2018-09-14 11:14 | NUR ---
RN NOTE: RECHECKED TEMP(AXILLARY) AND IT WAS 99.5F. WILL CONTINUE TO MONITOR.
--- NOTE | 2018-09-14 11:45 | NUR ---
RN NOTE: CALLED AND SPOKE WITH JEN, FRESCO ARTIST FROM DR. CUADRA'S OFFICE AND INFORMED HER THAT A MEDICAL RECORD REQUEST WAS FAXED TO THE OFFICE OF DR. CUADRA PER DR. Jessica PUGH'S ORDER. PER JEN SHE WILL CHECK AND SEE ONCE THE REQUEST OF RECORD WAS OBTAINED IN THEIR OFFICE.
--- NOTE | 2018-09-14 12:00 | NUR ---
RN NOTE: CALLED AND SPOKE WITH MERLE STAFF FROM DR. CUADRA'S OFFICE AND INFORMED HER THAT A MEDICAL RECORD REQUEST FROM DR. Jessica PUGH (SPECIAL EFFECTS TECHNICIAN) WAS FAXED TO THE OFFICE. PER MERLE, SHE WILL FAX THE MEDICAL RECORDS IN 15-30 MINS. FAX NUMBER [phone] WAS GIVEN TO SEND THE INFORMATION.
--- NOTE | 2018-09-14 12:00 | NUR ---
RN NOTE: PATIENT WAS GIVEN A COLD BED BATH AND PATIENT FELT SO MUCH BETTER AFTER IT. RECHECKED TEMP (AXILLARY) 98.9F FAMILY REMAINED AT THE BEDSIDE.
--- NOTE | 2018-09-14 12:42 | NUR ---
RN NOTE: CALLED AND SPOKE WITH SRINI FROM THE OFFICE OF DR. CUADRA (LOGGING SUPERVISOR) TO GET AN UPDATE REGARDING THE PATIENT'S MEDICA RECORD IF IT WAS FAXED TO [phone] AND ACCORDING TO HER, MERLE WAS ON BREAK AND WILL BE BACK AFTER 30 MINS. PER SRINI, SHE'S BUSY AT THE MOMENT AND WILL HAVE MERLE CALL BACK IN THE HOSPITAL TO FOLLOW-UP.
--- NOTE | 2018-09-14 13:06 | NUR ---
RN NOTE: CALLED AND SPOKE WITH [place] OFFICE STAFF FROM DR. CUADRA'S OFFICE AND ASKED FOR MERLE TO FOLLOW-UP ON THE MEDICAL RECORDS. PER BENTON, MERLE WAS STILL ON HER LUNCH BREAK. WILL TRY TO CALL THEM BACK AGAIN, BUT NUMBER FOR RETURN CALL [phone] WAS LEFT WITH [place] TO HAVE MERLE CALL BACK ONCE SHE'S AVAILABLE. RAYO, SON WAS MADE AWARE.
--- NOTE | 2018-09-14 14:05 | NUR ---
RN NOTE: RECEIVED THE FAXED FROM DR. CUADRA'S OFFICE REGARDING THE MEDICAL RECORD REQUESTED BY DR. Jessica PUGH. FILED ON THE PATIENT'S CHART. PHONE CALL WAS ALSO RECEIVED FROM MERLE STAFF FROM DR. CUADRA'S OFFICE CONFIRMING ABOUT THE FAXED PAPERWORK. BADI () AND RAYO (SON) WERE MADE AWARE OF IT.
--- NOTE | 2018-09-14 14:40 | NUR ---
RN NOTE: PATIENT WAS S/P EXTUBATED AND OGT WAS ALSO REMOVED. PATIENT WAS PLACED ON NC 1L/MIN SATURATING 100%. NOT ON ANY FORM OF DISTRESS. WILL CLOSELY MONITOR THE PATIENT'S VITAL SIGN. DR. GALLAGHER WAS IN THE UNIT AND WAS GIVEN AN UPDATE.
--- NOTE | 2018-09-14 19:33 | NUR ---
RN NOTE: BEDSIDE REPORT WAS GIVEN TO PM SHIFT NURSE FOR CONTINUITY OF CARE. PATIENT REMAINED ON STABLE CONDITION SATURATING 100% WITH O2 1L/MIN VIA NC. DENIED ANY DISCOMFORT AND PAIN.
--- NOTE | 2018-09-14 20:00 | NUR ---
RECEIVED REPORT FROM JORGE BAILEY. PATIENT A/A/O X2-3, ABLE TO VERBALIZE NEEDS. BREATHING EVEN & UNLABORED, TOLERATING O2 @ 1LPM VIA NC, SATING WELL @ 100%. NO S/S OF RESPIRATORY DISTRESS NOTED. ON TELE W/ SINUS RHYTHM, HR 83. RIGHT UPPER ARM PICC LINE & RIGHT EJ IV INTACT & PATENT W/ DRESSING CDI, NO SIGNS OF COMPLICATION NOTED. FOELY CATH DRAINING YELLOW URINE. DENIES ANY PAIN OR DISCOMFORT @ THIS TIME. SAFETY MEASURES IN PLACE W/ SIDE RAILS UP & BED ALARM ON. INSTRUCTED TO USE CALL LIGHT FOR ASSISTANCE. WILL CONTINUE TO MONITOR.
[2018-09-14] MEDS: ATORVASTATIN 40 MG TABLET GT SCH (21:50)
[2018-09-15] VITALS (22 sets, daily range): BP systolic 126–166; BP diastolic 76–105
[2018-09-15] MEDS: AZTREONAM 1 G in IV NS 0.9% 100 ML IV SCH ×3 (00:32→17:41)
[2018-09-15 05:06] LABS: CALCIUM, SERUM 8.4 mg/dL (8.5-10.1); CREATININE 0.6 mg/dL (0.6-1.3); MAGNESIUM 2.2 mg/dL (1.8-2.4); PHOSPHORUS 2.4 mg/dL (2.5-4.9); POTASSIUM 3.2 mmol/L (3.5-5.1)
[2018-09-15 05:09] LABS: BASOPHILS % (AUTO) 0.1 % (0.0-2.0); EOSINOPHILS % (AUTO) 0.1 % (0.0-6.0); HEMATOCRIT 29 % (33-45); HEMOGLOBIN 9.8 g/dL (11.5-14.8); LYMPHOCYTES # (AUTO) 0.3 /CMM (0.8-4.8); LYMPHOCYTES % (AUTO) 5.7 % (20.0-44.0); MEAN CORPUSCULAR HGB CONC 34 g/dl (31.0-36.0); MEAN CORPUSCULAR VOLUME 92 fL (82-100); MONOCYTES # (AUTO) 0.1 /CMM (0.1-1.30); MONOCYTES % (AUTO) 2.2 % (2.0-12.0); NEUTROPHILS # (AUTO) 5.4 /CMM (1.8-8.9); NEUTROPHILS % (AUTO) 91.9 % (43.0-81.0); PLATELET COUNT (AUTO) 182 /CMM (150-450); RED BLOOD CELL COUNT(AUTO) 3.12 MIL/uL (4.0-5.2); WHITE BLOOD COUNT (AUTO) 5.9 K/uL (4.3-11.0)
--- NOTE | 2018-09-15 07:30 | NUR ---
RN NOTES RECEIVED PATIENT IN BED, A/A/O X2-3, ABLE TO MAKE NEEDS KNOWN. NOT ON ANY FORM OF DISTRESS. BREATHING EVEN & UNLABORED, ON ROOM AIR, SATING WELL @ 97%. SINUS RHYTHM ON THE MONITOR WITH HR ON THE 90'S. NO COMPLAINTS OF PAIN OF ANY KIND AT THIS TIME. RIGHT UPPER ARM PICC LINE & RIGHT EJ IV IN PLACE AND & INTACT. DRESSING CDI, NO SIGNS OF INFECTION OR INFILTRATION NOTED. PATENT ON FLUSHING. CHACON CATH DRAINING WELL VIA GRAVITY TO YELLOW URINE. HOB ELEVATED. SAFETY MEASURES OBSERVED AND MAINTAINED IN PLACE: SIDE RAILS UP & BED LOW AND LOCKED POSITIONED. BED ALARM ON. ENCOURAGE TO USE CALL LIGHT FOR HELP/ASSISTANCE. CALL LIGHT PLACED WITHIN REACH. WILL CONTINUE TO MONITOR AND ANTICIPATE NEEDS.
[2018-09-15] MEDS: FUROSEMIDE 100 MG/10 ML VIAL IV SCH ×3 (09:18→14:08)
[2018-09-15] MEDS: LEVETIRACETAM SOL (5 ML) 100 MG/ML UDC GT SCH ×2 (09:18→20:26)
[2018-09-15] MEDS: POTASSIUM CHLORIDE 20 MEQ TAB.PRT.SR PO SCH ×3 (09:18→10:50)
[2018-09-15] MEDS: LORATADINE 10 MG TABLET NG SCH (09:19)
[2018-09-15] MEDS: CYANOCOBALAMIN 1,000 MCG/ML VIAL IM SCH (09:19)
[2018-09-15] MEDS: methylPREDNISolone SOD SUCC 125 MG/2ML VIAL IV SCH (09:19)
[2018-09-15] MEDS: PANTOPRAZOLE 40 MG TABLET.DR PO SCH (09:20)
[2018-09-15] MEDS: METOPROLOL TARTRATE 25 MG TABLET PO SCH ×2 (09:20→21:22)
[2018-09-15] MEDS: LEVOTHYROXINE SODIUM 75 MCG TABLET PO SCH (09:27)
--- NOTE | 2018-09-15 12:00 | NUR ---
RN NOTES PATIENT TRANSFERRED OUT TO TELEMETRY VIA ACLS PROTOCOL. PATIENT AWAKE, NOT ON ANY FORM OF DISTRESS. ACCOMPANIED WITH 2 RN. WITH THE PATIENT ON TRANSFER.
--- NOTE | 2018-09-15 12:15 | NUR ---
MECHANICAL LABORATORY TECHNICIAN NOTES PATIENT CAME IN VIA GURNEY. REPORT FROM BUD, METAL ANNEALER. PATIENT AWAKE AND ALERTX3. FAMILY AT BEDSIDE. ON TELE MONITOR SR. HAS A RIGHT UPPER ARM PICC WITH DOUBLE LUMEN. POTASSIUM HAS BEEN REPLACED WITH 60 MEQ K ORAL. ON ROOM AIR. NO COMPLAINS OF ANY PAIN OR SOB. BED LOCKED AND IN LOWEST POSITION CALL LIGHT WITHIN REACH. WILL CONT TO MONITOR THROUGHOUT THE SHIFT
[2018-09-15] MEDS: Potassium Phosphate meq 11 MEQ in IV D5W 100 ML IV SCH ×2 (14:06→16:37)
--- NOTE | 2018-09-15 18:50 | NUR ---
RN CLOSING NOTES PATIENT AWAKE AND ALERT. NO COMPLAINS OF ANY PAIN OR SOB THROUGHOUT THE SHIFT. ALL MEDS GIVEN. IV MEDS STILL RUNNING. FRANCESCA PICC WITH TWO LUMENS. STABLE THROUGHOUT THE SHIFT. WILL ENDORSE TO NOC SHIFT FOR URBANO
--- NOTE | 2018-09-15 19:58 | NUR ---
SECONDARY SCHOOL TEACHER NOTE: RECEIVED PT ON BED ALERT AND ORIENTED X2. ABLE TO MAKE NEEDS KNOWN. FAMILY AT BEDSIDE. NO APPARENT DISTRESS NOTED. DENIES PAIN AND DISCOMFORT AT THIS TIME. ON ROOM AIR, SATURATING WELL. NO SOB NOTED. SINUS RHYTHM ON TELE MONITOR HR 90BPM. RIGHT UPPER ARM PICC LINE INTACT AND PATENT, FLUSHING WELL. CHACON CATH INTACT AND PATENT, DRAINING WELL. KEPT CLEAN, DRY AND COMFORTABLE. SAFETY AND FALL PRECAUTIONS OBSERVED AND MAINTAINED. WILL CONTINUE TO MONITOR PT.
[2018-09-15] MEDS: ACETAMINOPHEN 650 MG/20.3 ML UDC NG PRN (20:25)
[2018-09-15] MEDS: ATORVASTATIN 40 MG TABLET GT SCH (21:22)
[2018-09-16] VITALS: BP_SYST 133; BP_SYST 150; BP_DIAS 81; BP_DIAS 86
[2018-09-16] MEDS: AZTREONAM 1 G in IV NS 0.9% 100 ML IV SCH ×2 (01:20→08:12)
[2018-09-16 04:00] VITALS: BP 144/90
--- NOTE | 2018-09-16 06:39 | NUR ---
PROGRAM PROJECT ANALYST NOTE: NO CHANGES NOTED THROUGHOUT THE SHIFT. NO APPARENT DISTRESS NOTED. NO COMPLAINTS IF PAIN OR DISCOMFORT AT THIS TIME. ON ROOM AIR, BREATHING EVEN AND UNLABORED WITH NORMAL RESPIRATIONS. SINUS TACHY ON TELE MONITOR HR 107 BPM. CHACON CATH INTACT AND PATENT, DRAINED 1500 ML OF CLEAR YELLOW URINE OUTPUT. CALL LIGHT PLACED WITHIN REACH. KEPT CLEAN, DRY AND COMFORTABLE. SIDE RAILS UP X3. BED ALARM ON. BED LOCKED AND IN LOWEST POSITION. WILL ENDORSE TO DAY SHIFT RN FOR CONTINUITY OF CARE.
--- NOTE | 2018-09-16 07:05 | NUR ---
OPERATIONAL INTELLIGENCE OFFICER OPENING NOTES RECEIVED REPORT FROM MASH PROCESSING OPERATOR. PT IS ASLEEP IN BED. NO OBVIOUS SIGNS OF SOB OR PAIN NOTED AT THIS TIME. PT HAS AN IJ AND A PICC LINE THAT IS TKO. BED IS LOCKED AND IN LOWEST POSITION. PT HAS A CHACON THAT IS DRAINING CLEAR YELLOW URINE. HR ON MONITOR IS 107. WILL CONTINUE TO MONITOR.
[2018-09-16] MEDS: LEVOTHYROXINE SODIUM 75 MCG TABLET PO SCH (07:59)
[2018-09-16 08:00] VITALS: BP_SYST 151; BP_SYST 154; BP_DIAS 101
[2018-09-16 08:05] LABS: BASOPHILS % (AUTO) 0.1 % (0.0-2.0); EOSINOPHILS % (AUTO) 0.4 % (0.0-6.0); HEMATOCRIT 33 % (33-45); HEMOGLOBIN 11.3 g/dL (11.5-14.8); LYMPHOCYTES # (AUTO) 0.6 /CMM (0.8-4.8); LYMPHOCYTES % (AUTO) 8.2 % (20.0-44.0); MEAN CORPUSCULAR HGB CONC 34 g/dl (31.0-36.0); MEAN CORPUSCULAR VOLUME 92 fL (82-100); MONOCYTES # (AUTO) 0.2 /CMM (0.1-1.30); MONOCYTES % (AUTO) 2.4 % (2.0-12.0); NEUTROPHILS # (AUTO) 6.3 /CMM (1.8-8.9); NEUTROPHILS % (AUTO) 88.9 % (43.0-81.0); PLATELET COUNT (AUTO) 175 /CMM (150-450); RED BLOOD CELL COUNT(AUTO) 3.61 MIL/uL (4.0-5.2)
[2018-09-16] MEDS: LEVETIRACETAM SOL (5 ML) 100 MG/ML UDC GT SCH ×2 (08:10→20:46)
[2018-09-16] MEDS: PANTOPRAZOLE 40 MG TABLET.DR PO SCH (08:10)
[2018-09-16] MEDS: LORATADINE 10 MG TABLET NG SCH (08:11)
[2018-09-16] MEDS: methylPREDNISolone SOD SUCC 125 MG/2ML VIAL IV SCH (08:11)
[2018-09-16] MEDS: METOPROLOL TARTRATE 25 MG TABLET PO SCH ×2 (08:12→20:46)
[2018-09-16 08:14] LABS: IMMUNOGLOBULIN A, SERUM 285 mg/dL (87-352); IMMUNOGLOBULIN G, SERUM 849 mg/dL (700-1600); IMMUNOGLOBULIN M, SERUM 45 mg/dL (26-217)
[2018-09-16] MEDS: CYANOCOBALAMIN 1,000 MCG/ML VIAL IM SCH (08:18)
[2018-09-16 08:31] LABS: ALBUMIN 2.3 g/dL (3.4-5.0); BILIRUBIN,TOTAL 0.6 mg/dL (0.2-1.0); CALCIUM, SERUM 8.6 mg/dL (8.5-10.1); CREATININE 0.6 mg/dL (0.6-1.3); MAGNESIUM 1.8 mg/dL (1.8-2.4); PHOSPHORUS 2.4 mg/dL (2.5-4.9); POTASSIUM 3.6 mmol/L (3.5-5.1); TOTAL PROTEIN, SERUM 5.9 g/dL (6.4-8.2)
[2018-09-16 09:43] LABS: BAND % (MANUAL) 2 % (0.0-5.0); LYMPHOCYTES % (MANUAL) 5 % (16-48); MONOCYTES % (MANUAL) 1 % (0-11.0); NEUTROPHILS % (MANUAL) 92 (42-76)
[2018-09-16] MEDS: NEUTRA PHOS 1 POWD.PACKET PO SCH ×2 (09:45→18:12)
--- NOTE | 2018-09-16 10:41 | NUR ---
CHACON HAS BEEN D/C/ PT REPORTS NO PAIN. BEDSIDE COMMODE PLACED AT BEDSIDE.
[2018-09-16 16:00] VITALS: BP 157/100
--- NOTE | 2018-09-16 19:56 | NUR ---
RN MS CLOSING GAVE REPORT TO SHIPPING INSPECTOR. PT IS ASLEEP IN BED. NO OBVIOUS SIGNS OF SOB OR PAIN NOTED AT THIS TIME. PT HAS AN IJ AND A PICC LINE THAT IS TKO. BED IS LOCKED AND IN LOWEST POSITION. PT HAS A CHACON THAT IS DRAINING CLEAR YELLOW URINE. HR ON MONITOR IS 107. WILL ENDORSE CONTINUITY OF CARE.
[2018-09-16 20:00] VITALS: BP 146/91
--- NOTE | 2018-09-16 20:20 | NUR ---
Med Surg Note: Lying in bed on R/a. Picc to left upper arm and right Ej intact and patent. Disposable briefs clean and dry. Denies of any distress side rails up Call light within reach bed in lowest position.
[2018-09-16] MEDS: ATORVASTATIN 40 MG TABLET GT SCH (20:46)
[2018-09-17 00:11] VITALS: BP 146/91
[2018-09-17 06:19] LABS: BASOPHILS % (AUTO) 0.1 % (0.0-2.0); EOSINOPHILS % (AUTO) 0.4 % (0.0-6.0); HEMATOCRIT 31 % (33-45); HEMOGLOBIN 10.6 g/dL (11.5-14.8); LYMPHOCYTES # (AUTO) 0.7 /CMM (0.8-4.8); LYMPHOCYTES % (AUTO) 8.5 % (20.0-44.0); MEAN CORPUSCULAR HGB CONC 35 g/dl (31.0-36.0); MEAN CORPUSCULAR VOLUME 91 fL (82-100); MONOCYTES # (AUTO) 0.2 /CMM (0.1-1.30); MONOCYTES % (AUTO) 2.7 % (2.0-12.0); NEUTROPHILS # (AUTO) 7.3 /CMM (1.8-8.9); NEUTROPHILS % (AUTO) 88.3 % (43.0-81.0); PLATELET COUNT (AUTO) 173 /CMM (150-450); RED BLOOD CELL COUNT(AUTO) 3.36 MIL/uL (4.0-5.2); WHITE BLOOD COUNT (AUTO) 8.3 K/uL (4.3-11.0)
[2018-09-17 06:42] LABS: CALCIUM, SERUM 7.8 mg/dL (8.5-10.1); CREATININE 0.5 mg/dL (0.6-1.3); MAGNESIUM 1.5 mg/dL (1.8-2.4); PHOSPHORUS 2.4 mg/dL (2.5-4.9); POTASSIUM 3.1 mmol/L (3.5-5.1)
[2018-09-17] MEDS: LEVOTHYROXINE SODIUM 75 MCG TABLET PO SCH (07:30)
[2018-09-17 08:00] VITALS: BP 146/91
[2018-09-17] MEDS ORDERED: POTASSIUM CHLORIDE 20 MEQ POWDER PACKET NG SCH (09:00)
[2018-09-17] MEDS ORDERED: methylPREDNISolone SOD SUCC 125 MG/2ML VIAL IV SCH (09:00)
[2018-09-17] MEDS: METOPROLOL TARTRATE 25 MG TABLET PO SCH ×2 (09:26→21:01)
[2018-09-17] MEDS: LORATADINE 10 MG TABLET NG SCH (09:26)
[2018-09-17] MEDS: CYANOCOBALAMIN 1,000 MCG/ML VIAL IM SCH (09:26)
[2018-09-17] MEDS: LEVETIRACETAM SOL (5 ML) 100 MG/ML UDC GT SCH ×2 (09:26→21:02)
[2018-09-17] MEDS: PANTOPRAZOLE 40 MG TABLET.DR PO SCH (09:26)
[2018-09-17] MEDS: methylPREDNISolone SOD SUCC 125 MG/2ML VIAL IV SCH (09:26)
[2018-09-17] MEDS ORDERED: NEUTRA PHOS 1 POWD.PACKET GT ONE (10:30)
[2018-09-17] MEDS: Magnesium 1GM/D5W 100ML PREMIX 100 ML IV SCH ×2 (10:44→11:23)
[2018-09-17] MEDS: POTASSIUM CHLORIDE 20 MEQ TAB.PRT.SR PO SCH ×2 (10:44→11:24)
[2018-09-17 16:00] VITALS: BP 139/89
[2018-09-17] MEDS ORDERED: ENSURE ENLIVE 237 ML LIQUID (VANILLA) PO SCH (16:00)
[2018-09-17] MEDS: HYDROXYCHLOROQUINE 200 MG TABLET PO SCH (17:45)
--- NOTE | 2018-09-17 19:50 | NUR ---
RN NOTES RECEIVED PATIENT AWAKE, RESPONSIVE TO VERBAL STIMULI WHEN CALLING HER NAME SHE WILL MOVE HER HEAD TOWARDS THE DIRECTION OF THE SOUND, SAFETY MEASURES IN PLACE, BED IN LOW LOCKED POSITION, ASPIRATION PRECAUTION EMPHASIZE, IV ACCESS INTACT AND PATENT, NO SIGNS OF ACUTE RESPIRATORY DISTRESS NOTED, CALL LIGHT WITHIN EASY REACH. WILL CONTINUE TO MONITOR ACCORDINGLY.
[2018-09-17 20:00] VITALS: BP 121/85
[2018-09-17] MEDS: ATORVASTATIN 40 MG TABLET GT SCH (21:41)
[2018-09-18] VITALS (7 sets, daily range): BP systolic 114–135; BP diastolic 85–95
[2018-09-18 06:38] LABS: CALCIUM, SERUM 7.8 mg/dL (8.5-10.1); CREATININE 0.5 mg/dL (0.6-1.3); MAGNESIUM 2.1 mg/dL (1.8-2.4); PHOSPHORUS 2.4 mg/dL (2.5-4.9); POTASSIUM 3.1 mmol/L (3.5-5.1)
--- NOTE | 2018-09-18 07:01 | NUR ---
RN NOTES ALL NEEDS ATTENDED AND MET, KEEP CLEAN AND DRY, ABLE TO REST AND SLEEP AT INTERVALS, REPOSITIONED FOR COMFORT, SAFETY MEASURES IN PLACE ASPIRATION PRECAUTION EMPHASIZE, CALL LIGHT WITHIN EASY REACH, ENDORSED TO AM NURSE FOR CONTINUITY OF CARE.
--- NOTE | 2018-09-18 07:20 | NUR ---
RN OPENING NOTES PATIENT IN BED AWAKE. ALERT ONLY TO SELF, BY FIRST NAME ONLY. HAS A RIGHT UPPER ARM AND RIGHT IJ IV LINES. NO COMPLAINS OF ANY PAIN OR ANY SOB. BED LOCKED AND IN LOWEST POSITION. CALL LIGHT WITHIN REACH. WILL CONTINUE TO MONITOR CLOSELY
[2018-09-18] MEDS: CYANOCOBALAMIN 1,000 MCG/ML VIAL IM SCH (08:18)
[2018-09-18] MEDS: HYDROXYCHLOROQUINE 200 MG TABLET PO SCH ×2 (08:18→16:15)
[2018-09-18] MEDS: LEVOTHYROXINE SODIUM 75 MCG TABLET PO SCH (08:18)
[2018-09-18] MEDS: PANTOPRAZOLE 40 MG TABLET.DR PO SCH (08:18)
[2018-09-18] MEDS: LEVETIRACETAM SOL (5 ML) 100 MG/ML UDC GT SCH ×2 (08:18→21:42)
[2018-09-18] MEDS: LORATADINE 10 MG TABLET NG SCH (08:18)
[2018-09-18] MEDS: methylPREDNISolone SOD SUCC 125 MG/2ML VIAL IV SCH (08:19)
[2018-09-18] MEDS: METOPROLOL TARTRATE 25 MG TABLET PO SCH ×2 (08:23→21:43)
--- NOTE | 2018-09-18 09:22 | NUR ---
RN NOTES PATIENT'S ENSURE IS SCHEDULED AT LUNCH FROM KITCHEN. WILL CHANGE THE TIME SOON WE GET THE DOCTOR'S LIST. PATIENT'S GETTING ENSURE DAILY
[2018-09-18] MEDS ORDERED: ENSURE ENLIVE 237 ML LIQUID (VANILLA) PO SCH (12:00)
[2018-09-18] MEDS: ENSURE ENLIVE 237 ML LIQUID (VANILLA) PO SCH ×3 (12:50→17:38)
[2018-09-18] MEDS: POTASSIUM CHLORIDE 20 MEQ TAB.PRT.SR PO SCH ×3 (12:50→15:09)
--- NOTE | 2018-09-18 14:12 | NUR ---
RN NOTES ENSURE HAS BEEN SCANNED AT 1200 FOR LUNCH. ANOTHER ONE SCHEDULED AT 1300. NON ADMINISTERED
[2018-09-18] MEDS: Potassium Phosphate meq 11 MEQ in IV D5W 100 ML IV SCH ×2 (14:22→17:38)
--- NOTE | 2018-09-18 14:56 | NUR ---
RN NOTES PATIENT HAD A SMALL BLOODY STOOL. COLLECTED STOOL AND PUT IN FRIDGE. MD MADE AWARE, WANTED REPEAT CBC, TYPE AND SCREEN AND OB STOOL COLLECTED. ORDER CARRIED OUT. CALLED LAB
[2018-09-18] MEDS: PROSOURCE / PROSTAT (PYXIS) 30 ML UDC PO SCH (16:18)
--- NOTE | 2018-09-18 16:54 | NUR ---
RN NOTES PATIENT'S SON, ENRICO , WAS REQUESTING FOR A CONFORMAL PAD FORMER TO SEE HIS MOTHER REGARDING LUPUS. MADE AWARE AND STATED THAT SHE ALREADY TALKED TO THE SON AND TOLD HIM WE DO NOT HAVE CONFORMAL PAD FORMER AT THIS HOSPITAL JOSUÉ CALLED AND GAVE ME THE NAME OF THE CONFORMAL PAD FORMER I CAN CONTACT: DR MARIA VICTORIA CASTELLANO . CALLED THIS NUMBER TWICE WITH NO ANSWER. LEFT A VOICEMAIL AND A CALL BACK NUMBER. OFFICE HOURS 9AM-12NN AND 2PM-5PM. JOSUÉ MADE AWARE
[2018-09-18 17:40] LABS: BASOPHILS % (AUTO) 0.1 % (0.0-2.0); EOSINOPHILS % (AUTO) 0.1 % (0.0-6.0); HEMATOCRIT 31 % (33-45); HEMOGLOBIN 10.4 g/dL (11.5-14.8); LYMPHOCYTES # (AUTO) 0.6 /CMM (0.8-4.8); LYMPHOCYTES % (AUTO) 8.2 % (20.0-44.0); MEAN CORPUSCULAR HGB CONC 34 g/dl (31.0-36.0); MEAN CORPUSCULAR VOLUME 92 fL (82-100); MONOCYTES # (AUTO) 0.1 /CMM (0.1-1.30); MONOCYTES % (AUTO) 2.1 % (2.0-12.0); NEUTROPHILS # (AUTO) 6.5 /CMM (1.8-8.9); NEUTROPHILS % (AUTO) 89.5 % (43.0-81.0); PLATELET COUNT (AUTO) 147 /CMM (150-450); RED BLOOD CELL COUNT(AUTO) 3.33 MIL/uL (4.0-5.2); WHITE BLOOD COUNT (AUTO) 7.2 K/uL (4.3-11.0)
--- NOTE | 2018-09-18 18:08 | NUR ---
RN NOTES PATIENT'S REPEAT HGB WAS 10.4. MD MADE AWARE. ALSO, HR HAS BEEN ELEVATED SINCE AM. 115 AND 120. CHECKED MANUALLY IT WAS 102. MD MADE AWARE AND WANTS TO ORDER LACTIC ACID AND GIVE A SMALL BOLUS OF NS 250 ML
[2018-09-18] MEDS ORDERED: IV NS 0.9% 250 ML IV ONE (18:30)
[2018-09-18 18:50] LABS: OCCULT BLOOD STOOL POSITIVE (NEGATIVE)
--- NOTE | 2018-09-18 18:54 | NUR ---
RN CLOSING NOTES PATIENT IN BED, AWAKE BUT CONFUSED. ONLY ALERT TO NAME. VITAL SIGNS STABLE, EXCEPT FOR HR BEING A LITTLE ELEVATED THAN NORMAL. MD AWARE, NS BOLUS GIVEN 250 ML. PATIENT HAD A BLOOD IN STOOL, SENT TO LAB RESULT PENDING. WILL ENDORSE TO NOC SHIFT FOR URBANO
--- NOTE | 2018-09-18 19:43 | NUR ---
MS RN NOTE: RECEIVED PT ON BED ALERT AND ORIENTED TO HERSELF. ABLE TO MAKE NEEDS KNOWN. NO APPARENT DISTRESS NOTED. DENIES PAIN AND DISCOMFORT AT THIS TIME. ON ROOM AIR, SATURATING WELL. BREATHING EVEN AND UNLABORED WITH NORMAL RESPIRATIONS. RIGHT UPPER ARM PICC LINE INTACT AND PATENT, FLUSHING WELL. CALL LIGHT PLACED WITHIN REACH. KEPT CLEAN, DRY AND COMFORTABLE. SIDE RAILS x3. BED ALARM ON. BED LOCKED AND IN LOWEST POSITION. WILL CONTINUE TO MONITOR PT.
--- NOTE | 2018-09-18 20:30 | NUR ---
MS RN NOTE: REDNESS NOTED ON BUTTOCKS/SACRUM OF PT. PICTURE TAKEN AND PLACED ON CHART. WOUND CONSULT ORDERED. WILL CONTINUE TO MONITOR PT.
[2018-09-18] MEDS: ATORVASTATIN 40 MG TABLET GT SCH (21:42)
[2018-09-19 04:00] VITALS: BP 131/92
[2018-09-19 06:11] LABS: *SPE A/G RATIO 1.1 (0.7-1.7); *SPE ALBUMIN 2.7 g/dL (2.9-4.4); *SPE ALPHA-1-GLOBULIN 0.3 g/dL (0.0-0.4); *SPE ALPHA-2-GLOBULIN 0.5 g/dL (0.4-1.0); *SPE BETA GLOBULIN 0.8 g/dL (0.7-1.3); *SPE GLOBULIN, TOTAL 2.4 g/dL (2.2-3.9); *SPE M-SPIKE Not Observed g/dL (Not Observed); *SPEGAMMA GLOBULIN 0.7 g/dL (0.4-1.8)
--- NOTE | 2018-09-19 06:36 | NUR ---
MS RN NOTE: NO CHANGES NOTED THROUGHOUT THE SHIFT. NO APPARENT DISTRESS NOTED AT THIS TIME. NO FACIAL GRIMACING OR ANY SIGNS OF PAIN NOTED. ON ROOM AIR, SATURATING WELL. NO SOB NOTED. RIGHT UPPER ARM PICC LINE AND RIGHT EJ #20 INTACT AND PATENT, FLUSHING WELL. PT HAD 3 SMALL SOFT BOWEL MOVEMENT THROUGHOUT THE SHIFT. KEPT CLEAN, DRY AND COMFORTABLE. CALL LIGHT PLACED WITHIN REACH. SIDE RAILS UP X3. BED ALARM ON. BED LOCKED AND IN LOWEST POSITION. WILL ENDORSE TO DAY SHIFT RN FOR CONTINUITY OF CARE.
[2018-09-19 06:45] LABS: BASOPHILS % (AUTO) 0.1 % (0.0-2.0); EOSINOPHILS % (AUTO) 0.3 % (0.0-6.0); HEMATOCRIT 29 % (33-45); HEMOGLOBIN 9.8 g/dL (11.5-14.8); LYMPHOCYTES # (AUTO) 0.8 /CMM (0.8-4.8); LYMPHOCYTES % (AUTO) 11.4 % (20.0-44.0); MEAN CORPUSCULAR HGB CONC 35 g/dl (31.0-36.0); MEAN CORPUSCULAR VOLUME 92 fL (82-100); MONOCYTES # (AUTO) 0.2 /CMM (0.1-1.30); MONOCYTES % (AUTO) 2.7 % (2.0-12.0); NEUTROPHILS # (AUTO) 5.6 /CMM (1.8-8.9); NEUTROPHILS % (AUTO) 85.5 % (43.0-81.0); PLATELET COUNT (AUTO) 147 /CMM (150-450); RED BLOOD CELL COUNT(AUTO) 3.11 MIL/uL (4.0-5.2); WHITE BLOOD COUNT (AUTO) 6.6 K/uL (4.3-11.0)
[2018-09-19 06:58] LABS: CALCIUM, SERUM 8.1 mg/dL (8.5-10.1); CREATININE 0.4 mg/dL (0.6-1.3); MAGNESIUM 2.1 mg/dL (1.8-2.4); PHOSPHORUS 2.8 mg/dL (2.5-4.9); POTASSIUM 4.2 mmol/L (3.5-5.1)
--- NOTE | 2018-09-19 07:49 | NUR ---
MS RN OPENING NOTES RECEIVED PATIENT IN BED SLEEPING.NO SOB OR ACUTE DISTRESS NOTED. REPORTED CONFUSED.AND ONLY ALERT TO NAME. VITAL SIGNS STABLE, W/ MINOR TACHCARDIA. AWARE, FRANCESCA PICC INTACT AND PATENT.SAFETY MEASURES IN PLACE. CALL LIGHT WITHIN REACH.WILL CONTINUE TO MONITOR.
[2018-09-19 08:00] VITALS: BP 142/89
--- NOTE | 2018-09-19 08:32 | NUR ---
WOUND CARE CONSULT: PT PRESENTS WITH INCONTINENCE AND REDNESS WITH RASH TO INNER/LOWER BUTTOCKS. RECOMMENDATIONS MADE FOR SKIN PROTECTION AND CARE. DISCUSSED WITH NURSING STAFF. PT DEMONSTRATES ABILITY TO ASSIST WITH TURNING AND REPOSITIONING IN BED. WILL SEE PRN. SAAVEDRA IN AGREEMENT WITH PLAN OF CARE. CURRENT FRANCES SCORE IS 13. Addendum: 09/19/18 at 0833 by NAOMI GAMBINO WNDNU Amended: Links added.
[2018-09-19] MEDS: CYANOCOBALAMIN 1,000 MCG/ML VIAL IM SCH (08:45)
[2018-09-19] MEDS: PANTOPRAZOLE 40 MG TABLET.DR PO SCH (08:45)
[2018-09-19] MEDS: LEVETIRACETAM SOL (5 ML) 100 MG/ML UDC GT SCH ×2 (08:45→21:07)
[2018-09-19] MEDS: LEVOTHYROXINE SODIUM 75 MCG TABLET PO SCH (08:46)
[2018-09-19] MEDS: HYDROXYCHLOROQUINE 200 MG TABLET PO SCH ×2 (08:46→18:09)
[2018-09-19] MEDS: LORATADINE 10 MG TABLET NG SCH (08:46)
[2018-09-19] MEDS: METOPROLOL TARTRATE 25 MG TABLET PO SCH ×2 (08:47→21:08)
[2018-09-19] MEDS: ENSURE ENLIVE 237 ML LIQUID (VANILLA) PO SCH ×3 (08:47→18:00)
[2018-09-19] MEDS: PROSOURCE / PROSTAT (PYXIS) 30 ML UDC PO SCH ×2 (08:48→17:55)
[2018-09-19] MEDS ORDERED: predniSONE 20 MG TABLET PO SCH (09:00)
[2018-09-19] MEDS: CLOTRIMAZOLE 1% 15 GM TUBE TP SCH ×2 (09:18→18:00)
[2018-09-19] MEDS: Z GUARD REMEDY 2 OZ OINT TP SCH (09:18)
[2018-09-19 16:00] VITALS: BP 136/89
[2018-09-19 20:00] VITALS: BP 131/91
[2018-09-19] MEDS: ATORVASTATIN 40 MG TABLET GT SCH (23:59)
[2018-09-20] VITALS (17 sets, daily range): BP systolic 113–159; BP diastolic 76–107
--- NOTE | 2018-09-20 01:38 | NUR ---
MS RN OPENING NOTES RECEIVED PATIENT IN BED SLEEPING TRANSFER OF CARE.NO SOB OR ACUTE DISTRESS NOTED. CONFUSED.AND ONLY ALERT TO NAME. VITAL SIGNS STABLE. FRANCESCA PICC LINE INTACT AND PATENT.SAFETY MEASURES IN PLACE. CALL LIGHT WITHIN REACH.WILL CONTINUE TO MONITOR.
--- NOTE | 2018-09-20 05:50 | NUR ---
RN NOTES PATIENT HAS TEMP 100.5 F AND RIGHT SIDE FACE TWITCHING . CALLED MCKAYLA MACK AND TELEPHONE ORDER OF SUPPOSITORY TYLENOL 650MG IS IN PLACE. PATIENT PLACED ON CDL FLATBED TRUCK DRIVER AND PIC OF EKG TRACING HAS BEEN SENT TO MCKAYLA MACK. PATIENT IS SR ON CDL FLATBED TRUCK DRIVER. PER MCKAYLA MACK PATIENT DOESN'T LOOK LIKE HAVING SZ AND WILL ENDORSE TO AM SHIFT RN FOR NEURO CONSULT.
[2018-09-20] MEDS: ACETAMINOPHEN 650 MG/SUPP.RECT RC PRN ×2 (06:53→20:53)
[2018-09-20] MEDS ORDERED: LEVOTHYROXINE SODIUM 125 MCG TABLET PO SCH (07:30)
--- NOTE | 2018-09-20 08:00 | NUR ---
MS RN OPENING NOTES RECEIVED PATIENT IN BED SLEEPING.NO SOB OR ACUTE DISTRESS NOTED. REPORTED CONFUSED.AND ONLY ALERT TO NAME. PATIENT EXHIBITING MINOR TWITCHING OF THE EYES AND POSSIBLE SIEZURE LIKE ACTIVITY. WILL CALL MD IMMEDIATELY. VITAL SIGNS STABLE, W/ MINOR TACHCARDIA. MD AWARE, FRANCESCA PICC INTACT AND PATENT.SAFETY MEASURES IN PLACE. CALL LIGHT WITHIN REACH.WILL CONTINUE TO MONITOR.
[2018-09-20] MEDS: LEVETIRACETAM SOL (5 ML) 100 MG/ML UDC GT SCH ×2 (08:14→18:19)
[2018-09-20] MEDS ORDERED: LORAZEPAM INJ 2 MG/ML VIAL IV STA ×2 (08:27→15:18)
--- NOTE | 2018-09-20 08:46 | NUR ---
PATIENT HAD MULTIPLE FACIAL TWICTCHING LASTED 5 SECONDS,NONVERBAL,DR. FLORENCE NEUROLOGIST NOTIFIED,PRN ONE TIME ATIVAN GIVEN IV .WILL CONTINUE TO MONITOR.
[2018-09-20] MEDS: CYANOCOBALAMIN 1,000 MCG/ML VIAL IM SCH (09:55)
[2018-09-20] MEDS: LORATADINE 10 MG TABLET NG SCH (09:55)
[2018-09-20] MEDS: PANTOPRAZOLE 40 MG/PACK PACK PO SCH (10:15)
[2018-09-20] MEDS: METOPROLOL TARTRATE 25 MG TABLET PO SCH ×2 (10:15→20:12)
[2018-09-20] MEDS: PROSOURCE / PROSTAT (PYXIS) 30 ML UDC PO SCH (10:15)
[2018-09-20] MEDS: Z GUARD REMEDY 2 OZ OINT TP SCH (10:15)
[2018-09-20] MEDS: predniSONE 20 MG TABLET PO SCH (10:15)
[2018-09-20] MEDS: ENSURE ENLIVE 237 ML LIQUID (VANILLA) PO SCH ×2 (10:15→13:00)
[2018-09-20] MEDS: CLOTRIMAZOLE 1% 15 GM TUBE TP SCH ×2 (10:15→17:00)
[2018-09-20] MEDS: HYDROXYCHLOROQUINE 200 MG TABLET PO SCH ×2 (10:15→17:21)
[2018-09-20 11:41] LABS: BASOPHILS % (AUTO) 0.6 % (0.0-2.0); EOSINOPHILS % (AUTO) 0.2 % (0.0-6.0); HEMATOCRIT 30 % (33-45); HEMOGLOBIN 10.4 g/dL (11.5-14.8); LYMPHOCYTES # (AUTO) 0.8 /CMM (0.8-4.8); LYMPHOCYTES % (AUTO) 16.4 % (20.0-44.0); MEAN CORPUSCULAR HGB CONC 35 g/dl (31.0-36.0); MEAN CORPUSCULAR VOLUME 91 fL (82-100); MONOCYTES # (AUTO) 0.3 /CMM (0.1-1.30); MONOCYTES % (AUTO) 4.9 % (2.0-12.0); NEUTROPHILS % (AUTO) 77.9 % (43.0-81.0); PLATELET COUNT (AUTO) 169 /CMM (150-450); RED BLOOD CELL COUNT(AUTO) 3.27 MIL/uL (4.0-5.2); WHITE BLOOD COUNT (AUTO) 5.1 K/uL (4.3-11.0)
[2018-09-20 11:49] LABS: CALCIUM, SERUM 8.7 mg/dL (8.5-10.1); CARBON DIOXIDE 26 mmol/L (21-32); CHLORIDE 100 mmol/L (98-107); CREATININE 0.7 mg/dL (0.6-1.3); GLUCOSE 99 mg/dL (74-106); POTASSIUM 4.3 mmol/L (3.5-5.1); SODIUM SERUM 133 mmol/L (136-145); UREA NITROGEN, BLOOD 17 mg/dL (7-18)
[2018-09-20 11:58] LABS: SERUM AMMONIA < 10 umol/L (11-32)
[2018-09-20] MEDS ORDERED: LACOSAMIDE 50 MG TABLET NG SCH (15:00)
--- NOTE | 2018-09-20 15:00 | NUR ---
SEWER BRICKLAYERPILATES COORDINATOR NOTES PT RECEIVED FROM STEPHANI RN NURSE FOR INCREASED MONITORING PT WAS NOTED TO HAVE CONTINUOUS SEIZURE ACTIVITY. PRIMARY MD MADE AWARE ALONG WITH NEUROLOGIST. PT NOTED TO BE LETHARGIC AT THIS TIME, UNABLE TO FOLLOW SIMPLE COMMANDS, RIGHT FACIAL TWITCHING NOTED. PT SINUS TACH ON MONITOR. BP STABLE. PT PLACED ON 2L NC AND SATING WEILL AT 98%. SEIZURE PRECAUTIONS INITIATED. WILL CONTINUE TO CLOSELY MONITOR AND AWAIT FRO ANY FURTHER MD ORDERS
--- NOTE | 2018-09-20 15:00 | NUR ---
CERAMIST NOTES: MD ORDER (DR YANCYE) CONTACTED BY STEPHANI CHARGE NURSE AND MADE AWARE OF PT TRANSFER. FURTHER ORDERS OBTAINED FROM MD TO CONTINUE NGT FEEDING AND HOLD OFF ON CHACON INSERTION AT THIS TIME
--- NOTE | 2018-09-20 15:41 | NUR ---
PATIENT HAVING EEG AND HAVING ACTIVE SEIZURE PER EEG REPORT ,RELAYED TO DR. FLORENCE AND DR. BLAKE WITH NEW ORDRS.
[2018-09-20] MEDS ORDERED: VALPROATE 1,000 MG in IV D5W 100 ML IV ONE (16:00)
[2018-09-20] MEDS ORDERED: PHENYTOIN SODIUM IV 50 MG/ML VIAL IV ONE (16:00)
[2018-09-20] MEDS: JEVITY 1.2 CAL 1,000 ML BOTTLE GT PRN (17:21)
[2018-09-20] MEDS ORDERED: LEVETIRACETAM (500MG) 2,000 MG in IV NS 0.9% 100 ML IV SCH (18:00)
[2018-09-20] MEDS: LORAZEPAM INJ 2 MG/ML VIAL IV PRN ×2 (18:19→20:53)
--- NOTE | 2018-09-20 18:25 | NUR ---
CHEMICAL DEPENDENCY NURSE NOTES: MD SUERO (DR MAXWELL) AT BEDSIDE. MD AWARE OF PT'S CONTINUED TWITCHING. VERBAL ORDER OBTAINED BY MD TO GIVE 2MG ATIVAN IV PRN Q2HR FOR SEIZURE ACTIVITY ALONG WITH A DOSE TO BE ADMINISTERED NOW. MD ALSO ORDERED 2100 LEVETIRACETAM DOSE TO BE ADMINISTERED NO WELL. PHARMACIST SONY ALSO MADE AWARE
--- NOTE | 2018-09-20 19:10 | NUR ---
FOREST RESOURCES PROFESSOR CLOSING NOTES PT REMAINS LETHARGIC. FACIAL TWITCHING SINCE CEASED S/P ATIVAN AND KEPPRA ADMINISTRATION. VSS. INVASIVE LINES REMAIN PATENT AND INTACT. ENDORSED TO NIGHTSHIFT RN FOR URBANO
--- NOTE | 2018-09-20 19:30 | NUR ---
CERTIFIED PUBLIC ACCOUNTANT NOTE RECEIVED PT LETHARGIC AND NON VERBAL. AROUSABLE TO TACTILE STIMULI. ON 3L OF O2 VIA NC AND SATURATING WELL. AT BEDSIDE. BREATHING UNLABORED. HOB ELEVATED AND ON ASPIRATION PRECAUTIONS. TELE- ST 110. R NARE NGT IN PLACE AND FEEDING INFUSING WITHOUT RESIDUALS NOTED. FRANCESCA PICC CLEAN, DRY AND PATENT. CALL LIGHT WITHIN REACH. WILL CONTINUE TO MONITOR.
--- NOTE | 2018-09-20 19:44 | NUR ---
TEL RN NOTE PATIENT TRANSFERRRED TO ICU. PATIENT TAKEN TO ICU VIA GURNEY WITH TUBE TEST TECHNICIAN. REPORT GIVEN TO CORPORATE BUYER.
[2018-09-20] MEDS: methylPREDNISolone SOD SUCC 125 MG/2ML VIAL IV SCH (22:50)
[2018-09-21] VITALS (28 sets, daily range): BP systolic 93–129; BP diastolic 60–95
--- NOTE | 2018-09-21 06:52 | NUR ---
PARARESCUE CRAFTSMAN NOTE PT REMAINED STABLE DURING SHIFT. REMAINS LETHARGIC. NO ACUTE DISTRESS NOTED. ALL NEEDS ATTENDED TO PROMPTLY. SEIZURE PRECAUTIONS OBSERVED. KEPT CLEAN AND DRY. REPOSITIONED Q2H. WILL ENDORSE TO NEXT SHIFT FOR CONTINUITY OF CARE.
--- NOTE | 2018-09-21 07:05 | NUR ---
JACKSCREW MAN INITIAL NOTES PT REMAINS LETHARGIC. ORIENTED TO NAME. NO SOB OR ACUTE SIGNS OF DISTRESS NOTED. BREATHING IS EVEN AND UNLABORED. PT ON 2 L VIA NC AND SATING WELL. VSS AT THIS TIME. MINOR RIGHT EYE TWITCHING NOTED. WILL ADMINISTER ANTIEPILEPTIC MEDICATIONS WHEN DUE. RIGHT UPPER ARM PICC NOTED TO BE C/D/I. NO REDNESS OR SIGNS OF INFILTRATION NOTED. RIGHT NARE NG TUBE NOTED TO BE PATENT AND INTACT. PLACEMENT VERIFIED VIA AUSCULTATION. PT TOLERATING GTUBE FEEDING AT 50CC/HR WELL. 15CC OF RESIDUALS ASPIRATED. BED IN LOC LOCKED POSITION, SIDE RAILS UP X3, SEIZURE PRECAUTIONS OBSERVED, CALL LIGHT WITHIN REACH. WILL CONTINUE TO MONITOR
[2018-09-21] MEDS: predniSONE 20 MG TABLET PO SCH (08:29)
[2018-09-21] MEDS: LORATADINE 10 MG TABLET NG SCH (08:29)
[2018-09-21] MEDS: METOPROLOL TARTRATE 25 MG TABLET PO SCH ×2 (08:29→21:07)
[2018-09-21] MEDS: LEVETIRACETAM SOL (5 ML) 100 MG/ML UDC GT SCH ×2 (08:29→21:06)
[2018-09-21] MEDS: HYDROXYCHLOROQUINE 200 MG TABLET PO SCH (08:30)
[2018-09-21] MEDS: methylPREDNISolone SOD SUCC 125 MG/2ML VIAL IV SCH (08:30)
[2018-09-21] MEDS: LEVOTHYROXINE INJ 100 MCG VIAL IV SCH (08:30)
[2018-09-21] MEDS: Z GUARD REMEDY 2 OZ OINT TP SCH (08:30)
[2018-09-21] MEDS: PANTOPRAZOLE 40 MG/PACK PACK PO SCH (08:30)
[2018-09-21] MEDS: CLOTRIMAZOLE 1% 15 GM TUBE TP SCH ×2 (08:42→16:32)
[2018-09-21] MEDS ORDERED: PHENYTOIN EXTENDED RELEASE 100 MG CAPSULE PO SCH ×2 (09:00→21:00)
[2018-09-21 09:37] LABS: ABG BASE EXCESS 2.2 mmol/L; ABG OXYGEN SATURATION 97.2 % (92.0-98.5); ABG PCO2 32.7 mmHg (35.0-45.0); ABG PH 7.502 (7.350-7.450); AaDO2 61.1 mmHg; COHb 0.3 % (0.5-1.5); MetHb 0.7 % (0.0-1.5); O2Hb 96.2 % (94.0-97.0); SITE, ABG Right Radial; VENT MODE, BG 2L NASAL CANNULA
--- NOTE | 2018-09-21 10:18 | NUR ---
HOME OFFICE CLAIM SPECIALIST NOTES: ESR F/U MISCELLANEOUS ORDER PLACED BY DR GALLAGHER FOR STAT ESR LAB. MD MADE AWARE THAT PT HAD A RECENT LAB DRAW THE NIGHT PRIOR AND MADE OF RESULTS. NO NEED FOR REPEAT LAB DRAW PER
--- NOTE | 2018-09-21 11:31 | NUR ---
MEDIA RELATIONS DIRECTOR NOTES: ROUNDING (DR. YANCEY) MD AT BEDSIDE AND MADE AWARE OF PT'S RECENT CONDITION AND LABS. MD ALSO MADE AWARE THAT PT'S WOULD LIKE TO SPEAK TO HIM AND WAS GIVEN 'S CONTACT INFORMATION. ALSO NOTES THAT PT DOES NOT REQUIRE AM LABS AT THIS TIME THERE HAVE BEEN NO FURTHER ACUTE CHANGES IN CONDITION. WILL CONTINUE TO MONITOR
[2018-09-21] MEDS ORDERED: methylPREDNISolone SOD SUCC 125 MG/2ML VIAL IV SCH (15:00)
[2018-09-21] MEDS: LORAZEPAM INJ 2 MG/ML VIAL IV PRN (15:18)
[2018-09-21] MEDS ORDERED: SOLU-MEDROL 500 MG IN NS 100 ML IV SCH (16:00)
[2018-09-21] MEDS ORDERED: phenytoin SODIUM IV 1,000 MG in IV NS 0.9% 100 ML IV STA (16:25)
[2018-09-21] MEDS: JEVITY 1.2 CAL 1,000 ML BOTTLE GT PRN (17:16)
--- NOTE | 2018-09-21 18:47 | NUR ---
ACADEMIC SUPPORT COORDINATOR CLOSING NOTES PT REMAINS LETHARGIC. NO NOTICEABLE SEIZURE ACTIVITY NOTED AT THIS TIME. LOADING DOSE OF DILANTIN ADMINISTERED PER DR MAXWELL ORDER. PAGED IN REGARDS TO FURTHER DILANTIN AND KEPPRA DOSAGES ALONE WITH TIMING OF DILANTIN LAB DRAW. AWAITING RESPONSE. SAFETY MEASURES AND SEIZURE PRECAUTIONS REMAIN IN PLACE. WILL ENDORSE TO NIGHTSHIFT RN FOR URBANO
--- NOTE | 2018-09-21 19:30 | NUR ---
FORGING ENGINEER NOTE RECEIVED PT DROWSY AND NON VERBAL BUT MORE EASILY AROUSABLE TO NAME. ON 2L OF O2 VIA NC AND SATURATING WELL. AT BEDSIDE. BREATHING UNLABORED. HOB ELEVATED AND ON ASPIRATION PRECAUTIONS. TELE- ST 90. R NARE NGT IN PLACE AND FEEDING INFUSING WITHOUT RESIDUALS NOTED. FRANCESCA PICC CLEAN, DRY AND PATENT. CALL LIGHT WITHIN REACH. WILL CONTINUE TO MONITOR.
--- NOTE | 2018-09-21 19:35 | NUR ---
MACHINE GREASER NOTES: MR ORDERS DR ORDONEZ RESPONDED IN REGARDS TO PTS' SEIZURE MEDICATIONS AND DOSAGES. TELEPHONE ORDER OBTAINED FROM MD TO INCREASE PT'S DILANTIN DOES FROM 100MG TO 200MG Q12HR, KEPPRA FROM 1500MG TO 2000MG, AND ADD A DILANTIN LAB LEVEL FOR THE AM. ORDERS PLACED AND ENDORSE TO NIGHTSHIFT RN
[2018-09-21] MEDS: PHENYTOIN SUSP UDC 100 MG/4 ML UDC GT SCH (21:06)
[2018-09-22] VITALS (28 sets, daily range): BP systolic 100–143; BP diastolic 32–94
[2018-09-22 00:12] LABS: APPEARANCE,URINE CLEAR (CLEAR); BILIRUBIN,URINE NEGATIVE (NEGATIVE); BLOOD, URINE NEGATIVE Ery/uL (NEGATIVE); COLOR,URINE YELLOW (YELLOW); KETONES,URINE NEGATIVE (NEGATIVE); LEUKOCYTE ESTERASE ,URINE NEGATIVE (NEGATIVE); NITRITE, URINE NEGATIVE (NEGATIVE); PH,URINE 6.5 (5.0-8.0); PROTEIN,URINE 2+ mg/dl (NEGATIVE); UGLUCOSE NEGATIVE (NEGATIVE); UROBILINOGEN,URINE 0.2 EU/dL (0.2)
[2018-09-22 00:25] LABS: BACTERIA,URINE Few /HPF (None Seen); SQUAMOUS EPITHELIAL CELL,UR Few /HPF (None Seen)
--- NOTE | 2018-09-22 07:10 | NUR ---
HAMMERSMITH HELPER INITIAL NOTES PT AWAKE, RESPONSIVE TO NAME, NOT FOLLOWING COMMANDS AT THIS TIME. . NO SOB OR ACUTE SIGNS OF DISTRESS NOTED. BREATHING IS EVEN AND UNLABORED. PT ON 2 L VIA NC AND SATING WELL. VSS AT THIS TIME. NO SEIZURE ACTIVITY REPORTED BY NIGHTSHIFT RN OR ASSESSED AT THIS TIMER. RIGHT UPPER ARM PICC NOTED TO BE C/D/I. NO REDNESS OR SIGNS OF INFILTRATION NOTED. RIGHT NARE NG TUBE NOTED TO BE PATENT AND INTACT. PLACEMENT VERIFIED VIA AUSCULTATION. PT TOLERATING GTUBE FEEDING AT 50CC/HR WELL. 5CC OF RESIDUALS ASPIRATED. BED IN LOW LOCKED POSITION, SIDE RAILS UP X3, SEIZURE PRECAUTIONS OBSERVED, CALL LIGHT WITHIN REACH. WILL CONTINUE TO MONITOR
--- NOTE | 2018-09-22 07:19 | NUR ---
SHARK BIOLOGIST NOTE PT REMAINED STABLE DURING SHIFT. NO ACUTE DISTRESS NOTED. ALL NEEDS ATTENDED TO PROMPTLY. KEPT CLEAN AND DRY. REPOSITIONED Q2H. WILL ENDORSE TO NEXT SHIFT FOR CONTINUITY OF CARE.
[2018-09-22] MEDS: PHENYTOIN SUSP UDC 100 MG/4 ML UDC GT SCH (08:05)
[2018-09-22] MEDS: LEVOTHYROXINE INJ 100 MCG VIAL IV SCH (08:06)
[2018-09-22] MEDS: LEVETIRACETAM SOL (5 ML) 100 MG/ML UDC GT SCH ×2 (08:06→20:46)
[2018-09-22] MEDS: PANTOPRAZOLE 40 MG/PACK PACK PO SCH (08:06)
[2018-09-22] MEDS: LORATADINE 10 MG TABLET NG SCH (08:06)
[2018-09-22] MEDS: METOPROLOL TARTRATE 25 MG TABLET PO SCH ×2 (08:07→20:46)
[2018-09-22] MEDS: CLOTRIMAZOLE 1% 15 GM TUBE TP SCH ×2 (08:08→16:10)
[2018-09-22] MEDS: Z GUARD REMEDY 2 OZ OINT TP SCH (08:09)
--- NOTE | 2018-09-22 10:00 | NUR ---
HEEL SEAT FITTER NOTES: MD ROUNDING (DR YANCEY) MD AT BEDSIDE AND MADE AWARE OF PT'S CONDITION, RECENT VITALS AND LAB. VERBAL ORDER OBTAINED FROM MD FOR SPEECH EVAL TO EVALUATE PT'S ABILITY TO SWALLOW.
[2018-09-22] MEDS: LORAZEPAM INJ 2 MG/ML VIAL IV PRN (10:45)
--- NOTE | 2018-09-22 10:53 | NUR ---
AREA FIELD PERSON NOTES: MD ROUNDING (DR ORDONEZ) MD AT BEDSIDE ND MADE AWARE OF PT'S CONDITION AND MEDICATIONS. VERBAL ORDER OBTAINED FROM MD FOR REPEAT EEG ALONG WITH ADMINISTERING ONE TIME DOSE OF DILANTIN 100MG AND ATIVAN 2MG, AND TO CHANGE FURTHER DILANTIN DOSES FROM 200MG TO 300MG Q12HR. BOTTLE WASHER MACHINE CONTACT BY . ORDERS IMPUTED AND MEDICATIONS ADMINISTERED
[2018-09-22] MEDS ORDERED: PHENYTOIN SUSP UDC 100 MG/4 ML UDC GT ONE (11:00)
--- NOTE | 2018-09-22 14:02 | NUR ---
PHONE REPRESENTATIVE NOTES: SPEECH EVEL SPEECH THERAPIST AT BEDSIDE FOR EVAL. PER THERAPIST, PT IS TOO LETHARGIC AND IS AFRAID OF ASPIRATION RISK. SPEECH THERAPIST TO F/U WITH PT ON TUESDAY
[2018-09-22] MEDS: methylPREDNISolone SOD SUCC 125 MG/2ML VIAL IV SCH (14:18)
[2018-09-22] MEDS: JEVITY 1.2 CAL 1,000 ML BOTTLE GT PRN (17:23)
--- NOTE | 2018-09-22 17:46 | NUR ---
DR OWENS CALLED REQUESTING STAT DILANTIN ORDER. WILL NOTIFY OF RESULTS
--- NOTE | 2018-09-22 18:30 | NUR ---
EDGING MACHINE FEEDER NOTES: DR NAYE MEDEROS MD CALLED AND STATES THAT SINCE PT WILL BE BEGIN ANOTHER SEIZURE MEDICATION, HER RESPIRATORY AND NEURO STATUS MUST BE FREQUENTLY MONITORED. PT ON 2L VIA NC AND SATING WELL. SHE IS ABLE TO FOLLOW SOME SIMPLE COMMANDS WHEN PROMPTED AND ALERT TO NAME.
--- NOTE | 2018-09-22 18:47 | NUR ---
SCREWDOWN OPERATOR NOTES: DILANTIN LEVEL AND NEW ORDER DR FLORENCE MADE AWARE OF PT'S DILANTIN LEVEL OF 12.3. TELEPHONE ORDER OBTAINED TO CHANGE PT'S CURRENT DILANTIN ADMINISTRATION FROM Q12 TO Q8HR. ALSO STATES THAT HE DOES NOT WANT PT TO RECEIVE DILANTIN DOSAGE TONIGHT ND TO RESUME ADMINISTRATION IN THE MORNING. VERBAL READ BACK CONFIRMED.
--- NOTE | 2018-09-22 19:03 | NUR ---
SOLID GLASS ROD DOWEL MACHINE OPERATOR CLOSING NOTES NO CHANGES IN NEURO STATUS. PT REMAINS STABLE ON 2L NC. NO S/S OF RESPIRATORY DISTRESS AT THIS TIME. NO NOTICEABLE SEIZURE ACTIVITY NOTED. ALL NEEDS ANTICIPATED AND PROMPTLY MET. PT REPOSITIONED AND TURNED PER PROTOCOL. SAFETY MEASURES AND SEIZURE PRECAUTIONS REMAIN IN PLACE. WILL ENDORSE TO NIGHTSHIFT RN FOR URBANO
--- NOTE | 2018-09-22 19:26 | NUR ---
MEDICAL FIELD REPRESENTATIVE.INITIAL ASSESSMENT. RECEIVED THE PT REST ON THE BED. AWAKE, ALERT, DOES NOT FOLLOW COMMANDS,DOES NOT SPEAK. RT UPPER AND LOWER EXTREMITY FLACCID. NO DROOPING. OXYGEN 2L VIA NASAL CANNULA. SAT 98%. NO ACUTE DISTRESS NOTED. POULTRY SLAUGHTERER SHOWING NSR, IV RT UPPER ARM PICC LINE. TKO RUNNING, RT NARE NGT INTACT. JEVITY 50ML/H, HOB ELEVATED. WILL CONTINUE TO MONITOR VITALS.
[2018-09-22] MEDS ORDERED: VALPROATE 1,500 MG in IV D5W 100 ML IV ONE (20:00)
[2018-09-22] MEDS ORDERED: PHENYTOIN SUSP UDC 100 MG/4 ML UDC GT SCH (21:00)
[2018-09-23] VITALS (45 sets, daily range): BP systolic 120–176; BP diastolic 72–119
[2018-09-23] MEDS: IV NS 0.9% 250 ML IV PRN (03:13)
--- NOTE | 2018-09-23 04:01 | NUR ---
sustainable agriculture specialist. am care, oral care, bed bath given. linen changed. remaining same NGT feeding tolerated well. satellite project site monitor showing nsr, iv rt upper arm picc line, tko running, afebrile, hob elevated, turn and reposition q2h, will continue to monitor vitals.DURING SHIFT NO SEIZURE ACTIVITY NOTED. . SEIZURE PRECAUTION PLACED.
[2018-09-23] MEDS: DIVALPROEX SODIUM 250 MG TABLET.DR PO SCH ×3 (04:50→21:46)
[2018-09-23] MEDS: PHENYTOIN SUSP UDC 100 MG/4 ML UDC GT SCH ×3 (04:51→21:44)
[2018-09-23 05:06] LABS: HEMATOCRIT 29 % (33-45); HEMOGLOBIN 9.8 g/dL (11.5-14.8); LYMPHOCYTES # (AUTO) 1.5 /CMM (0.8-4.8); LYMPHOCYTES % (AUTO) 19.2 % (20.0-44.0); MEAN CORPUSCULAR HGB CONC 34 g/dl (31.0-36.0); MEAN CORPUSCULAR VOLUME 93 fL (82-100); MONOCYTES # (AUTO) 0.5 /CMM (0.1-1.30); MONOCYTES % (AUTO) 6.1 % (2.0-12.0); NEUTROPHILS # (AUTO) 5.8 /CMM (1.8-8.9); NEUTROPHILS % (AUTO) 74.7 % (43.0-81.0); PLATELET COUNT (AUTO) 230 /CMM (150-450); RED BLOOD CELL COUNT(AUTO) 3.15 MIL/uL (4.0-5.2); WHITE BLOOD COUNT (AUTO) 7.7 K/uL (4.3-11.0)
[2018-09-23 05:06] LABS: CALCIUM, SERUM 8.6 mg/dL (8.5-10.1); CREATININE 0.6 mg/dL (0.6-1.3); PHOSPHORUS 2.8 mg/dL (2.5-4.9); POTASSIUM 4.4 mmol/L (3.5-5.1)
--- NOTE | 2018-09-23 06:11 | NUR ---
SENIOR PARTNER. BED SCALE NOT WORKING.
--- NOTE | 2018-09-23 07:30 | NUR ---
RN NOTE: RECEIVED PATIENT IN BED, AWAKE, ALERT TO HER NAME, BUT NONVERBAL. UNABLE TO FOLLOW SIMPLE COMMANDS, BUT ABLE TO MOVE HER (B) UE. RESPIRATION EVEN AND UNLABORED SATURATING 99% ON ROOM AIR. MONEY ROOM TELLER SHOWED SR HR= 95. NO FACIAL GRIMACING NOTED AND NO S/S OF DISCOMFORT. (R) UA PICC LINE WITH 2 PORTS NOTED IN PLACED INTACT AND CLEAN. ON SEIZURE AND ASPIRATION PRECAUTION. HOB ELEVATED. NGT ATTACHED TO (R) NARE NOTED IN PLACED RECEIVING JEVITY 1.2 AT 50 ML/HR AND PATIENT WAS TOLERATING IT WELL. BED ALARMED AND LOCKED AT ALL TIMES. CALL LIGHT WITHIN REACH. NEEDS ANTICIPATED.
--- NOTE | 2018-09-23 07:45 | NUR ---
RN NOTE: RECEIVED PATIENT ASLEEP, ABLE TO SPONTANEOUSLY OPEN HER EYES. EASY TO AROUSE. RESPIRATION EVEN AND UNLABORED SATURATING 98% IN ROOM AIR. HOB ELEVATED. ON SEIZURE AND ASPIRATION PRECAUTION. BED ALARMED AND LOCKED AT ALL TIMES. PATIENT WAS NOTED WITH [employer] 1ST STEP MATTRESS, BUT WAS SLIDING DOWN EVERY 10-15 MINS PER DIESEL POWER MECHANIC WELL. (R) UA PICC LINE DOUBLE LUMEN NOTED PATENT AND INTACT INFUSING A NS @5ML/HR TKO. NGT FEEDING ON THE (R) NARE WAS NOTED WITH JEVITY 1.2 @50ML/HR AND PATIENT WAS TOLERATING IT WELL. DVT PUMPS CONNECTED TO THE PATIENT. NO FACIAL GRIMACING NOTED. CALL LIGHT WITHIN REACH. NEEDS ANTICIPATED.
[2018-09-23] MEDS: LEVOTHYROXINE INJ 100 MCG VIAL IV SCH (08:03)
[2018-09-23] MEDS: LEVETIRACETAM SOL (5 ML) 100 MG/ML UDC GT SCH ×2 (08:04→21:44)
[2018-09-23] MEDS: methylPREDNISolone SOD SUCC 125 MG/2ML VIAL IV SCH (08:05)
[2018-09-23] MEDS: METOPROLOL TARTRATE 25 MG TABLET PO SCH ×2 (08:05→21:45)
[2018-09-23] MEDS: LORATADINE 10 MG TABLET NG SCH (08:05)
[2018-09-23] MEDS: PANTOPRAZOLE 40 MG/PACK PACK PO SCH (08:05)
[2018-09-23] MEDS: CLOTRIMAZOLE 1% 15 GM TUBE TP SCH ×2 (08:06→17:38)
[2018-09-23] MEDS: Z GUARD REMEDY 2 OZ OINT TP SCH (08:07)
--- NOTE | 2018-09-23 08:30 | NUR ---
RN NOTE: CALLED AND SPOKE WITH MR. ABDI KIMBALL () AND VERIFIED WITH HIM THAT HE WAS CONSENTING FOR THE CT HEAD W/WO CONTRAST TO BE DONE FOR THE PATIENT. TELEPHONE CONSENT WAS ALSO CONFIRMED BY ANOTHER NURSE, Bianca BARTHOLOMEW RN . HAS NO QUESTION REGARDING THE PROCEDURE. CALLED RADIOLOGY AND INFORMED FATEMEH CALIXICIAN THAT THE PATIENT IS READY FOR THE TEST AND CONSENT WAS FILED ON THE PATIENT'S CHART.
[2018-09-23 08:55] LABS: ABG BASE EXCESS 1.8 mmol/L; ABG OXYGEN SATURATION 95.6 % (92.0-98.5); ABG PCO2 30.4 mmHg (35.0-45.0); ABG PH 7.519 (7.350-7.450); ABG PO2 80.4 mmHg (75.0-100.0); AaDO2 32.9 mmHg; COHb 0.1 % (0.5-1.5); MetHb 0.2 % (0.0-1.5); O2Hb 95.3 % (94.0-97.0); SITE, ABG Right Radial; VENT MODE, BG ROOM AIR
[2018-09-23] MEDS ORDERED: IOHEXOL-300 100 ML VIAL IV ONE (09:34)
[2018-09-23] MEDS ORDERED: IV NS 0.9% 250 ML IV ONE (09:34)
[2018-09-23] MEDS ORDERED: CT SWABBABLE VALVE TRANS SET 1 EA INFUS.SET MC ONE (09:34)
--- NOTE | 2018-09-23 09:45 | NUR ---
RN NOTE: PATIENT WAS BROUGHT DOWN TO CT SCAN OF HEAD W/WO CONTRAST PER DR. FLORENCE'S ORDER. PATIENT WAS CONNECTED TO THE TRANSPORT MONITOR.
--- NOTE | 2018-09-23 10:00 | NUR ---
RN NOTE: PATIENT WAS RETURNED TO THE UNIT AFTER CT HEAD W/WO CONTRAST. PATIENT TOLERATED IT WELL. ATTACHED HER BACK TO THE LIFTER DRIVER.
--- NOTE | 2018-09-23 11:45 | NUR ---
RN NOTE: PATIENT WAS NOTED LYING ON THE (R) SIDE OF THE BED WITH THE NGT PULLED OUT. PATIENT WAS REPOSITIONED AND A NEW NGT WAS INSERTED.
--- NOTE | 2018-09-23 14:15 | NUR ---
RN NOTE: RECEIVED THE CHEST X-RAY RESULT TO VERIFY THE NGT PLACEMENT. WITHDREW THE NGT FOR 5 CM OUT PER CHEST X-RAY REPORT. FLUSHED THE NGT FOR PLACEMENT VERIFICATION AND IT WAS VERIFIED WITH ANOTHER NURSE, Bianca BARTHOLOMEW RN. NGT FEEDING WAS CONTINUED AFTER WITHDREWING 5 CM.
[2018-09-23] MEDS: JEVITY 1.2 CAL 1,000 ML BOTTLE GT PRN (15:10)
--- NOTE | 2018-09-23 16:00 | NUR ---
RN NOTE: PATIENT HAS BEEN NOTED WIGGLING ON THE BED WITH THE [employer] 1ST STEP MATTRESS. FOR PATIENT'S SAFETY, THE MATTRESS WAS REMOVED TO PREVENT FALL AND TO PREVENT ASPIRATION DUE TO THE NGT FEEDING. PATIENT REMAINED CONFUSED.
--- NOTE | 2018-09-23 19:45 | NUR ---
RN NOTE: BEDSIDE REPORT GIVEN TO PM SHIFT NURSE FOR CONTINUITY OF CARE AND BED BATH WAS PROVIDED. ON ASPIRATION AND SEIZURE PRECAUTION. NO SEIZURE EPISODE WAS NOTED WITHIN THE SHIFT.
--- NOTE | 2018-09-23 20:00 | NUR ---
OFFSHORE WIND OPERATIONS MANAGER NOTE: RECEIVED PATIENT IN BED, AWAKE, ALERT TO HER NAME, BUT NONVERBAL. UNABLE TO FOLLOW SIMPLE COMMANDS, BUT ABLE TO MOVE HER LUE. RESPIRATION EVEN AND UNLABORED SATURATING 99% ON ROOM AIR. UNLOADER SHOWED ST HR= 117. NO FACIAL GRIMACING NOTED AND NO S/S OF DISCOMFORT. (R) UA PICC LINE WITH 2 PORTS NOTED IN PLACED INTACT AND CLEAN. ON SEIZURE AND ASPIRATION PRECAUTION. HOB ELEVATED. NGT ATTACHED TO (R) NARE NOTED IN PLACED RECEIVING JEVITY 1.2 AT 50 ML/HR AND PATIENT WAS TOLERATING IT WELL, HOB ELEVATED. BED ALARMED AND LOCKED AT ALL TIMES. CALL LIGHT WITHIN REACH. NEEDS ANTICIPATED.
[2018-09-23] MEDS: hydrALAZINE HCL IV 20 MG VIAL IV PRN (23:06)
[2018-09-23] MEDS: LORAZEPAM INJ 2 MG/ML VIAL IV PRN (23:49)
[2018-09-24] VITALS (31 sets, daily range): BP systolic 111–160; BP diastolic 58–101
[2018-09-24] MEDS: METOPROLOL TARTRATE INJ 5 MG/5 ML AMPUL IVP PRN ×2 (01:37→20:30)
[2018-09-24] MEDS: PHENYTOIN SUSP UDC 100 MG/4 ML UDC GT SCH ×3 (04:29→20:45)
[2018-09-24] MEDS: DIVALPROEX SODIUM 250 MG TABLET.DR PO SCH ×3 (04:29→20:45)
[2018-09-24] MEDS: ACETAMINOPHEN 650 MG/SUPP.RECT RC PRN (04:30)
--- NOTE | 2018-09-24 06:40 | NUR ---
COSTUME SHOP COORDINATOR CLOSING NOTE ENDORSED PT TO AM SHIFT FOR URBANO OBSERVE FOR SEIZURE LIKE ACTIVITIES, PADDED SIDE RAILS, F/U IF PT NEED F/C.
[2018-09-24] MEDS: LEVETIRACETAM SOL (5 ML) 100 MG/ML UDC GT SCH ×2 (08:48→20:45)
[2018-09-24] MEDS: LORATADINE 10 MG TABLET NG SCH (08:48)
[2018-09-24] MEDS: PANTOPRAZOLE 40 MG/PACK PACK PO SCH (08:48)
[2018-09-24] MEDS: methylPREDNISolone SOD SUCC 125 MG/2ML VIAL IV SCH (08:49)
[2018-09-24] MEDS: METOPROLOL TARTRATE 25 MG TABLET PO SCH ×2 (08:49→20:46)
[2018-09-24] MEDS: CLOTRIMAZOLE 1% 15 GM TUBE TP SCH ×2 (08:50→16:48)
[2018-09-24] MEDS: Z GUARD REMEDY 2 OZ OINT TP SCH (08:50)
[2018-09-24] MEDS: LEVOTHYROXINE INJ 100 MCG VIAL IV SCH (08:53)
[2018-09-24] MEDS: ACYCLOVIR IV 1 GM in IV D5W 250 ML IV SCH ×2 (13:08→20:30)
[2018-09-24] MEDS: LORAZEPAM INJ 2 MG/ML VIAL IV PRN (14:19)
--- NOTE | 2018-09-24 14:28 | NUR ---
ICU/RN RESTLESSNESS - INCREASED HR PT NOTED RESTLESS, HR 130s PT GIVEN PRN ATIVAN. MONITORING.
[2018-09-24] MEDS: JEVITY 1.2 CAL 1,000 ML BOTTLE GT PRN (15:24)
[2018-09-24] MEDS: NEXIUM 40 MG VIAL IV SCH (16:48)
[2018-09-25] VITALS (27 sets, daily range): BP systolic 106–158; BP diastolic 69–119
[2018-09-25] MEDS: METOPROLOL TARTRATE INJ 5 MG/5 ML AMPUL IVP PRN ×2 (00:53→04:45)
[2018-09-25] MEDS: ACETAMINOPHEN 650 MG/SUPP.RECT RC PRN (04:54)
[2018-09-25] MEDS: ACYCLOVIR IV 1 GM in IV D5W 250 ML IV SCH (04:55)
[2018-09-25] MEDS: DIVALPROEX SODIUM 250 MG TABLET.DR PO SCH ×3 (04:55→21:31)
[2018-09-25] MEDS: PHENYTOIN SUSP UDC 100 MG/4 ML UDC GT SCH ×3 (04:55→21:30)
[2018-09-25] MEDS: LEVOTHYROXINE INJ 100 MCG VIAL IV SCH (06:53)
--- NOTE | 2018-09-25 07:30 | NUR ---
ICU/RN AM SHIFT INITIAL NOTES RECEIVED PT AWAKE IN BED, PT NON-VERBAL, EYES TRACKS. NO GRIMACING OR ACUTE DISTRESS NOTED. ON ROOM AIR SATURATING @ 97%, LUNG SOUNDS CLEAR, RESPIRATIONS EVEN & UNLABORED. NOTED WITH NON-PRODUCTIVE COUGH. ON TELE MONITORING WITH SINUS TACHY, HR 123. PICC LINE ON TKO PATENT, NO S/S OF INFECTION. NGT ON LEFT NARE INTACT, PLACEMENT VERIFIED BY AUSCULTATION WITH ON GOING @ 50CC/HR, NO GASTRIC RESIDUAL, FLUSHED. PT ON SEIZURE PRECAUTION, BED RAILS PADDED WELL ASPIRATION PRECAUTION. DVT SLEEP ON, PUMP TURNED ON. PT IS COMFORTABLE, SCHEDULED AM MEDS TO BE GIVEN. CL WITHIN REACHED AND SAFETY MAINTAINED.
[2018-09-25] MEDS: LEVETIRACETAM SOL (5 ML) 100 MG/ML UDC GT SCH ×2 (08:48→21:30)
[2018-09-25] MEDS: LORATADINE 10 MG TABLET NG SCH (08:48)
[2018-09-25] MEDS: METOPROLOL TARTRATE 25 MG TABLET PO SCH ×2 (08:48→21:31)
[2018-09-25] MEDS: methylPREDNISolone SOD SUCC 125 MG/2ML VIAL IV SCH (08:54)
[2018-09-25] MEDS: NEXIUM 40 MG VIAL IV SCH ×2 (08:54→16:43)
[2018-09-25] MEDS: CLOTRIMAZOLE 1% 15 GM TUBE TP SCH ×2 (08:58→16:43)
[2018-09-25] MEDS: Z GUARD REMEDY 2 OZ OINT TP SCH (08:59)
--- NOTE | 2018-09-25 09:15 | NUR ---
ICU/RN ROUNDS - HAYDEN Viera & ELLIOTT PT SEEN & EXAMINED BY HAYDEN Viera & ELLIOTT. NO NEW ORDERS RECEIVED, EXCEPT FROM DR. GALLAGHER TO FOLLOW-UP WITH NEURO CONSULT. NOTED AND CARRIED. ON GOING MONITORING.
--- NOTE | 2018-09-25 10:15 | NUR ---
ICU/RN NEURO CONSULT FOLLOW-UP PER DR. GALLAGHER'S INSTRUCTION. DR. FLORENCE NOTIFIED TO FOLLOW-UP ON PT'S RE-ASSESSMENT, DR. FLORENCE REPLIED TO SEE PT LATER THIS MORNING.
--- NOTE | 2018-09-25 10:57 | NUR ---
ICU/RN ROUNDS - DRs. FLORENCE & HAYDEN PT SEEN & EXAMINED BY DRs. FLORENCE & HAYDEN WITH PT'S AT BEDSIDE. NO NEW ORDER RECEIVED AT THIS TIME.
[2018-09-25 11:33] LABS: ALBUMIN 2.4 g/dL (3.4-5.0); BILIRUBIN,TOTAL 0.2 mg/dL (0.2-1.0); CALCIUM, SERUM 9.2 mg/dL (8.5-10.1); CREATININE 0.7 mg/dL (0.6-1.3); POTASSIUM 4.4 mmol/L (3.5-5.1); TOTAL PROTEIN, SERUM 6.2 g/dL (6.4-8.2)
[2018-09-25 11:41] LABS: THYROID STIMULATING HORMONE 14.085 uIU/mL (0.358-3.74)
[2018-09-25 11:44] LABS: BASOPHILS % (AUTO) 0.2 % (0.0-2.0); EOSINOPHILS % (AUTO) 0.1 % (0.0-6.0); HEMATOCRIT 30 % (33-45); HEMOGLOBIN 10.1 g/dL (11.5-14.8); LYMPHOCYTES # (AUTO) 1.1 /CMM (0.8-4.8); MEAN CORPUSCULAR HGB CONC 34 g/dl (31.0-36.0); MEAN CORPUSCULAR VOLUME 93 fL (82-100); MONOCYTES # (AUTO) 0.3 /CMM (0.1-1.30); NEUTROPHILS % (AUTO) 83.7 % (43.0-81.0); PLATELET COUNT (AUTO) 191 /CMM (150-450); WHITE BLOOD COUNT (AUTO) 8.4 K/uL (4.3-11.0)
--- NOTE | 2018-09-25 12:00 | NUR ---
ICU/RN NOON ROUNDS NO CHANGE OF CONDITION. ON GOING MONITORING.
[2018-09-25] MEDS: JEVITY 1.2 CAL 1,000 ML BOTTLE GT PRN (16:43)
--- NOTE | 2018-09-25 16:56 | NUR ---
ICU/RN SWALLOW EVALUATION SPEECH THERAPIST ATTEMPTED TO WAKE UP AND ENGAGE THE PT FOR SWALLOW EVALUATION BUT PT WOULD NOT BE AWAKEN ENOUGH TO PARTICIPATE. WILL TRY AGAIN TOMORROW.
--- NOTE | 2018-09-25 17:30 | NUR ---
ICU/RN AFTERNOON ROUNDS PM CARE PROVIDED, NO ACUTE CHANGE OF CONDITION. CONTINUED ASPIRATION AND SEIZURE PRECAUTION. MONITORING CONTINUED.
--- NOTE | 2018-09-25 19:18 | NUR ---
ICU/RN AM SHIFT END NOTES ALL NEEDS MET. NO ACUTE CHANGE OF CONDITION OR INCIDENT OF SEIZURE DURING THE SHIFT. PT ENDORSED TO PM NURSE TO CONTINUE CARE. ASPIRATION AND SEIZURE PRECAUTIONS OBSERVED. CL WITHIN REACHED AND SAFETY MAINTAINED.
--- NOTE | 2018-09-25 19:45 | NUR ---
ICU/INSURANCE DEFENSE PARALEGAL RECEIVED REPORT FROM DAY NURSE. SEE FLOWSHEET FOR ASSESSMENT ALONG WITH ANY SKIN ISSUES THAT PT MAY HAVE ALONG WITH EACH OF THE INTERVENTIONS TO THESE. PT WAS TURNED AND REPOSITIONED FOR COMFORT AND CARE. NO ACUTE DISTRESS SEEN AT THIS TIME, PT APPEARS TO BE RESTING COMFORTABLE. WILL CONTINUE TO MONITOR THIS PT AND ANY SEIZURE ACTIVITY.
--- NOTE | 2018-09-25 20:20 | NUR ---
ICU/TRANSPLANT CASE MANAGER PT APPEARED TO BE FIDGETING, MOVING AROUND UNCOMFORTABLE. PT WAS GIVEN MARIA ELENA CARE THEN TURNED AND REPOSITIONED FOR COMFORT AND CARE. WILL CONTINUE TO MONITOR THIS PT. PT NOW APPEARS TO BE MORE COMFORTABLE.
--- NOTE | 2018-09-25 22:00 | NUR ---
ICU/BLANKET CUTTING MACHINE OPERATOR LARGE GROUP OF FAMILY COMING THROUGH TO SEE PT. WAS GIVEN UPDATE ON PT'S STATUS. THEN ASKED EVERYONE TO GO HOME WELL HIMSELF. PT TOLD SHE COULDN'T SLEEP VERY WELL. NOTIFIED THAT PT SHOULD SLEEP AFTER SHE GETS HER 2100 DOSE OF SEIZURE MEDICATION.
[2018-09-26] VITALS (24 sets, daily range): BP systolic 96–139; BP diastolic 58–90
--- NOTE | 2018-09-26 00:10 | NUR ---
ICU/PHOTONICS ENGINEERING TECHNICIAN PT APPEARED TO BE FIDGETING, MOVING AROUND UNCOMFORTABLE. PT WAS GIVEN MARIA ELENA CARE THEN TURNED AND REPOSITIONED FOR COMFORT AND CARE. WILL CONTINUE TO MONITOR THIS PT. PT NOW APPEARS TO BE MORE COMFORTABLE.
--- NOTE | 2018-09-26 02:15 | NUR ---
ICU/BUSINESS TECHNOLOGY ANALYST PT APPEARED TO VERY AGITATED, NOTIFIED CHARGE NURSE WHO THEN GAVE ATIVAN IVP. WILL CONTINUE TO MONITOR THIS PT. PT WAS TURNED AND REPOSITIONED FOR COMFORT AND CARE.
[2018-09-26] MEDS: LORAZEPAM INJ 2 MG/ML VIAL IV PRN (02:21)
[2018-09-26] MEDS: PHENYTOIN SUSP UDC 100 MG/4 ML UDC GT SCH ×3 (04:31→22:50)
[2018-09-26] MEDS: DIVALPROEX SODIUM 250 MG TABLET.DR PO SCH ×2 (04:31→12:46)
--- NOTE | 2018-09-26 07:42 | NUR ---
ICU/RN AM SHIFT INITIAL NOTES RECEIVED PT AWAKE IN BED, NOTED A BIT OF RESTLESSNESS, PT NON-VERBAL, EYES TRACKS. NO GRIMACING OR ACUTE DISTRESS NOTED. ON ROOM AIR SATURATING @ 98%, LUNG SOUNDS CLEAR, PT MAKING GRUNTING SOUNDS, RESPIRATIONS EVEN & UNLABORED. NOTED WITH NON-PRODUCTIVE COUGH. ON TELE MONITORING WITH SINUS TACHY, HR 110. PICC LINE ON TKO PATENT, NO S/S OF INFECTION. NGT ON LEFT NARE INTACT, PLACEMENT VERIFIED BY AUSCULTATION WITH ON GOING @ 50CC/HR, NO GASTRIC RESIDUAL, FLUSHED. PT ON SEIZURE AND ASPIRATIONS PRECAUTIONS. LEFT HAND MITTEN ON RELEASED TO CHECK FOR CIRCULATION AND COMFORT THEN PLACED BACK, BED RAILS PADDED, DVT SLEEP ON, PUMP TURNED ON. PT IS COMFORTABLE, SCHEDULED AM MEDS TO BE GIVEN. CL WITHIN REACHED AND SAFETY MAINTAINED.
[2018-09-26] MEDS: methylPREDNISolone SOD SUCC 125 MG/2ML VIAL IV SCH (08:41)
[2018-09-26] MEDS: LEVOTHYROXINE INJ 100 MCG VIAL IV SCH (08:41)
[2018-09-26] MEDS: NEXIUM 40 MG VIAL IV SCH ×2 (08:41→17:21)
[2018-09-26] MEDS: LEVETIRACETAM SOL (5 ML) 100 MG/ML UDC GT SCH ×2 (08:42→22:51)
[2018-09-26] MEDS: LORATADINE 10 MG TABLET NG SCH (08:42)
[2018-09-26] MEDS: METOPROLOL TARTRATE 25 MG TABLET PO SCH ×2 (08:44→22:51)
[2018-09-26] MEDS: Z GUARD REMEDY 2 OZ OINT TP SCH (08:45)
[2018-09-26] MEDS: CLOTRIMAZOLE 1% 15 GM TUBE TP SCH ×2 (08:45→17:21)
--- NOTE | 2018-09-26 12:00 | NUR ---
ICU/RN NOON ROUNDS NO ACUTE CHANGE OF CONDITION. MONITORING CONTINUED.
--- NOTE | 2018-09-26 13:30 | NUR ---
ICU/RN SWALLOW EVALUATION SPEECH THERAPIST WITH PT AT BEDSIDE ASSESSING. MONITORING CONTINUED.
--- NOTE | 2018-09-26 17:00 | NUR ---
ICU/RN DIETARY RECOMMENDATION SPOKE TO WASTE PICKER DISCUSSED ABOUT HER DIET RECOMMENDATION FOR PT, WITH CONSULTATION WITH PHARMACY, PT TO RECEIVE NEW FEEDING FORMULA TWOCAL HN @ 55CC/HR (TOTAL OF 12 HOURS OF FEEDING) WITH DAILY MULTI-VITAMINS. FEEDING SCHEDULED ALSO SET IN COORDINATION WITH THE ADMINISTRATION OF THE PRESCRIBED DILANTIN (FEEDING WILL BE TURNED OFF 2 HOURS BEFORE AND AFTER ADMINISTRATION OF MEDICATION). CHARGE NURSE NOTIFIED.
[2018-09-26] MEDS: TWOCAL HN 1,000 ML LIQUID NG PRN (17:32)
--- NOTE | 2018-09-26 18:00 | NUR ---
ICU/RN AFTERNOON ROUNDS NO ACUTE CHANGE OF CONDITION. PT REPOSITIONED. FAMILY MEMBERS AT BEDSIDE. MONITORING.
--- NOTE | 2018-09-26 18:15 | NUR ---
ICU/RN ROUNDS - DR. FLORENCE PT SEEN & EXAMINED BY DR. FLORENCE WITH VERBAL ORDER RECEIVED FOR STAT DILANTIN & VALPROIC ACID. HAS SPOKEN TO DR. GALLAGHER. ORDER NOTED AND CARRIED.
--- NOTE | 2018-09-26 19:14 | NUR ---
ICU/RN AM SHIFT END NOTES NO ACUTE CHANGE OF CONDITION NOTED DURING THE SHIFT. NO FEVER, NO OBVIOUS SIGNS OF SEIZURE, NO RESPIRATORY DISTRESS. FAMILY MEMBERS THAT VISITED PT SAID THAT PT RESPONSE APPROPRIATELY. PT SAID "THANK YOU" TO ME. STAT LABS DRAWN WILL PM NURSE WILL INFORM DR. FLORENCE OF THE RESULTS. PT ENDORSED TO PM NURSE TO CONTINUE CARE. CL WITH REACHED, SAFETY MAINTAINED, ASPIRATION & SEIZURE PRECAUTIONS OBSERVED.
[2018-09-26 19:37] LABS: PHENYTOIN (DILANTIN) 14.5 ug/ml (10.0-20.0)
--- NOTE | 2018-09-26 19:50 | NUR ---
ICU/PREKINDERGARTEN TEACHER LAB HERE TO DRAWN STAT DILANTIN AND VALPROIC ACID LEVEL ON THIS PT. THEN WILL NOTIFY MD OWENS OF THESE RESULTS.
--- NOTE | 2018-09-26 20:20 | NUR ---
ICU/HOSIERY LOOPER DILANTIN LEVEL BACK AT 14.5 ALONG WITH VALPROIC ACID LEVEL AT 44, MD WAS CALLED ABOUT RESULTS, AWAIT CALL BACK FROM MD. PT WAS TURNED AND REPOSITIONED FOR COMFORT AND CARE.
[2018-09-26] MEDS: FLUCONAZOLE IN NS 100 MG in PREMIX 1 EA IV SCH ×2 (20:46)
[2018-09-26] MEDS ORDERED: DIVALPROEX SODIUM 125 MG CAP.SPRINK PO SCH (21:00)
--- NOTE | 2018-09-26 21:15 | NUR ---
ICU/HEALTH CARE ASSISTANT MD OWENS CALLED BACK WITH AN INCREASE OF DEPAKENE TO 1000MG TID, DUE TO THE LOW LEVEL OF VALPROIC ACID AT 44. ALL ORDERS WERE CARRIED OUT CHARGE NURSE MADE OF NEW ORDERS. WILL CONTINUE TO MONITOR THIS PT.
--- NOTE | 2018-09-26 21:45 | NUR ---
INSEMINATION WORKER FOR LUPUS WHICH IS JOCE KHAN [phone], THIS NAME AND NUMBER IS TO BE GIVEN TO NEUROLOGIST SO THAT HE CAN MAKE CONTACT AND HOPEFULLY OBTAIN LUPUS MEDICATION FOR PT.
[2018-09-26] MEDS ORDERED: DIVALPROEX SODIUM 500 MG TABLET.DR PO SCH (22:00)
[2018-09-26] MEDS: VALPROIC ACID 250 MG/5 ML UDC GT SCH (22:50)
--- NOTE | 2018-09-26 23:55 | NUR ---
ICU/DAIRY TESTER PT APPEARED TO BE FIDGETING, MOVING AROUND A LOT AND UNCOMFORTABLE. PT WAS GIVEN MARIA ELENA CARE THEN TURNED AND REPOSITIONED FOR COMFORT AND CARE. WILL CONTINUE TO MONITOR THIS PT. PT NOW APPEARS TO BE MORE COMFORTABLE.
[2018-09-27] VITALS (37 sets, daily range): BP systolic 99–152; BP diastolic 57–96
--- NOTE | 2018-09-27 01:30 | NUR ---
ICU/OIL PROCESS STILLMAN PT WAS GIVEN AM CARE, ALONG WITH ORAL CARE. PT TOLERATED THIS WELL. PT REMAINS ON ROOM AIR, WITH SATURATION AT 98-100%. PT WAS TURNED AND REPOSITIONED FOR COMFORT AND CARE WILL CONTINUE TO MONITOR THIS PT. NO ACUTE DISTRESS SEEN AT THIS TIME.
[2018-09-27] MEDS: ACETAMINOPHEN 650 MG/SUPP.RECT RC PRN ×2 (03:22→20:46)
--- NOTE | 2018-09-27 03:48 | NUR ---
ICU/LIFE ENRICHMENT SPECIALIST PT'S TEMP WAS 100.6, TYLENOL SUPPOSITORY WAS GIVEN FOR THIS. WILL CONTINUE TO MONITOR THIS PT'S TEMP. AND PASS ON TO DAY SHIFT NURSE TO WATCH TEMP.
[2018-09-27 04:40] LABS: BASOPHILS % (AUTO) 0.5 % (0.0-2.0); EOSINOPHILS % (AUTO) 0.4 % (0.0-6.0); HEMATOCRIT 27 % (33-45); HEMOGLOBIN 9.3 g/dL (11.5-14.8); LYMPHOCYTES # (AUTO) 2.2 /CMM (0.8-4.8); LYMPHOCYTES % (AUTO) 38.2 % (20.0-44.0); MEAN CORPUSCULAR HGB CONC 34 g/dl (31.0-36.0); MEAN CORPUSCULAR VOLUME 94 fL (82-100); MONOCYTES # (AUTO) 0.4 /CMM (0.1-1.30); MONOCYTES % (AUTO) 7.4 % (2.0-12.0); NEUTROPHILS % (AUTO) 53.5 % (43.0-81.0); PLATELET COUNT (AUTO) 213 /CMM (150-450); RED BLOOD CELL COUNT(AUTO) 2.89 MIL/uL (4.0-5.2); WHITE BLOOD COUNT (AUTO) 5.6 K/uL (4.3-11.0)
[2018-09-27 04:49] LABS: CALCIUM, SERUM 8.5 mg/dL (8.5-10.1); CREATININE 0.6 mg/dL (0.6-1.3); POTASSIUM 3.9 mmol/L (3.5-5.1)
--- NOTE | 2018-09-27 05:31 | NUR ---
ICU/DRYWALL HANGER HELPER AM LABS WERE DONE ALONG WITH CHEST XRAY. AWAIT FOR ANY ABNORMAL RESULTS.
[2018-09-27] MEDS: VALPROIC ACID 250 MG/5 ML UDC GT SCH ×3 (05:39→20:47)
[2018-09-27] MEDS: PHENYTOIN SUSP UDC 100 MG/4 ML UDC GT SCH ×3 (05:39→20:47)
--- NOTE | 2018-09-27 07:30 | NUR ---
INITIAL RECEIVED PT ASLEEP IN BED, NOTED RESTING CALMLY RESPIRATIONS EVEN UNLABORED, PT NON-VERBAL, EYES TRACKS. NO GRIMACING OR ACUTE DISTRESS NOTED. ON ROOM AIR SATURATING @ 97%, LUNG SOUNDS CLEAR, PT MAKING GRUNTING SOUNDS, TELE MONITORING WITH SINUS TACHY, HR 103. PICC LINE ON TKO PATENT, NO S/S OF INFECTION. NGT ON LEFT NARE INTACT, PLACEMENT VERIFIED BY AUSCULTATION WITH ON GOING @ 50CC/HR, NO GASTRIC RESIDUAL, FLUSHED. PT ON SEIZURE AND ASPIRATIONS PRECAUTIONS. LEFT HAND MITTEN ON RELEASED TO CHECK FOR CIRCULATION AND COMFORT THEN PLACED BACK, BED RAILS PADDED, DVT SLEEP ON, PUMP TURNED ON. PT IS COMFORTABLE, SCHEDULED AM MEDS TO BE GIVEN. CL WITHIN REACHED AND SAFETY MAINTAINED.
[2018-09-27] MEDS: LEVOTHYROXINE INJ 100 MCG VIAL IV SCH (07:31)
--- NOTE | 2018-09-27 08:57 | NUR ---
PT INTUBATED WITH 7.5 CUFFED ET-TUBE 24 AT THE LIP FOR SEIZURE CONTROL PT PLACED ON VERSED DRIP WELL AND EEG ORDERED FOR 12 NOON TODAY WILL CALL 'S ELLIOTT AND LIANNE WITH RESULTS. PT HAS SEIZURE PADS IN PLACED. VENTILATOR SETTINGS: AC-12, VT-400, PEEP+5 AND 25%.
[2018-09-27] MEDS ORDERED: MULTIVITAMIN LIQ 5 ML UDC GT SCH (09:00)
[2018-09-27] MEDS ORDERED: MULTIVIT W/MINERALS 1 TAB TABLET NG SCH (09:00)
[2018-09-27] MEDS: LORAZEPAM INJ 2 MG/ML VIAL IV PRN (09:34)
[2018-09-27] MEDS: LORATADINE 10 MG TABLET NG SCH (09:36)
[2018-09-27] MEDS: methylPREDNISolone SOD SUCC 125 MG/2ML VIAL IV SCH ×2 (09:36→16:50)
[2018-09-27] MEDS: MULTIVIT W/MINERALS 1 TAB TABLET NG SCH (09:36)
[2018-09-27] MEDS: MIDAZOLAM HCL 100 MG in IV NS 0.9% 80 ML IV PRN (09:36)
[2018-09-27] MEDS: METOPROLOL TARTRATE 25 MG TABLET PO SCH ×2 (09:38→20:47)
[2018-09-27] MEDS ORDERED: SUCCINYLCHOLINE CHLORIDE 20 MG/ML VIAL IV ONE (10:09)
[2018-09-27] MEDS ORDERED: ETOMIDATE 2 MG/ML VIAL IV ONE (10:09)
[2018-09-27 10:10] LABS: ABG BASE EXCESS 4.4 mmol/L; ABG OXYGEN SATURATION 97.6 % (92.0-98.5); ABG PCO2 36.4 mmHg (35.0-45.0); ABG PH 7.499 (7.350-7.450); AaDO2 41.7 mmHg; COHb 0.3 % (0.5-1.5); MetHb 0.8 % (0.0-1.5); O2Hb 96.5 % (94.0-97.0); PEEP,BG 5 cm H2O; SITE, ABG Left Brachial; VT, ABG 400 mL
[2018-09-27] MEDS: CLOTRIMAZOLE 1% 15 GM TUBE TP SCH ×2 (10:19→16:51)
[2018-09-27] MEDS: Z GUARD REMEDY 2 OZ OINT TP SCH (10:20)
[2018-09-27] MEDS: LEVETIRACETAM SOL (5 ML) 100 MG/ML UDC GT SCH ×2 (10:20→20:48)
[2018-09-27] MEDS: NEXIUM 40 MG VIAL IV SCH ×2 (10:22→16:50)
--- NOTE | 2018-09-27 10:29 | NUR ---
FAMILY MEMBER UPDATED PUBLIC HOUSING INTERVIEWER FOR LUPUS WHICH IS JOCE KHAN NUMBER TO NUMBER WAS CABLED AND PUBLIC HOUSING INTERVIEWER WILL RETURN CALL TO MD GALLAGHER
--- NOTE | 2018-09-27 14:35 | NUR ---
PT ON 1.5 MG/HR VERSED DRIP EEG BEING DONE NOW
--- NOTE | 2018-09-27 16:34 | NUR ---
VERSED DRIP INCREASED TO 3.5 MG/HR AFTER EEG PER MD DURAN ALSO MARTÍN (service desk technician) FOR [facility] CALLED AND WAS INFORMED THAT PT STILL NEEDS A HIGHER LEVEL OF CARE WITH CONTINUOUS EEG MONITORING PE MD LIANNE RESENDIZ STSTED THAT [facility] WILL CONTINUE TO LOOK FOR A [facility] FACILITY FOR HIGHER LEVEL OF CARE. MARTÍN'S TELEPHONE NUMBER: [id number]
--- NOTE | 2018-09-27 18:02 | NUR ---
CLOSING PT REMAINS INTUBATED ON VERSED DRIP PT HAD EEG DONE SEDATED HOB 30 DEGREE ON FEEDINGS TAKEN OFF AT 1900. PT ON MONITOR CHANGED SEVERAL DIAPERS. PT KEPT SAFELY BED IN LOW POSITION CALL CACERES NEXT TO PT WILL GIVEN RN REPORT TO PM SHIFT FOR CONTINUITY OF CARE.
--- NOTE | 2018-09-27 19:30 | NUR ---
RECEIVED PATIENT IN BED, ORALLY INTUBATED, NO DISTRESS NOTED. PATIENT IS DISORIENTED, BEHAVIORAL RESTRAINS ARE ON SAFETY MEASURES IMPLEMENTED, PATIENT ON VERSED DRIP CONTINUOUSLY. SEIZURE PRECAUTIONS MAINTAINED.
[2018-09-27] MEDS: FLUCONAZOLE IN NS 100 MG in PREMIX 1 EA IV SCH ×2 (19:38)
--- NOTE | 2018-09-27 20:30 | NUR ---
PATIENT'S FAMILY AT THE BEDSIDE- UPDATED ON PATIENT'S CONDITION. CONTINUE TO MONITOR
[2018-09-27] MEDS ORDERED: DIVALPROEX SODIUM 500 MG TABLET.DR PO SCH (21:00)
--- NOTE | 2018-09-27 21:00 | NUR ---
PATIENT HAS A FEVER 101.OF ORALLY- COOLING MEASURES STARTED, TYLENOL IS GIVEN ORDERED. CONTINUE TO MONITOR
[2018-09-27] MEDS: Z GUARD REMEDY 2 OZ OINT TP PRN (22:48)
[2018-09-28] VITALS (40 sets, daily range): BP systolic 101–134; BP diastolic 68–88
--- NOTE | 2018-09-28 | NUR ---
TEMP. 99.3F ORALLY. CONTINUE TO MONITOR
[2018-09-28 04:19] LABS: BASOPHILS % (AUTO) 0.3 % (0.0-2.0); EOSINOPHILS % (AUTO) 0.2 % (0.0-6.0); HEMATOCRIT 26 % (33-45); HEMOGLOBIN 8.9 g/dL (11.5-14.8); LYMPHOCYTES # (AUTO) 2.4 /CMM (0.8-4.8); LYMPHOCYTES % (AUTO) 39.9 % (20.0-44.0); MEAN CORPUSCULAR HGB CONC 34 g/dl (31.0-36.0); MEAN CORPUSCULAR VOLUME 94 fL (82-100); MONOCYTES # (AUTO) 0.5 /CMM (0.1-1.30); MONOCYTES % (AUTO) 8.6 % (2.0-12.0); PLATELET COUNT (AUTO) 213 /CMM (150-450); RED BLOOD CELL COUNT(AUTO) 2.78 MIL/uL (4.0-5.2); WHITE BLOOD COUNT (AUTO) 5.9 K/uL (4.3-11.0)
[2018-09-28] MEDS: VALPROIC ACID 250 MG/5 ML UDC GT SCH ×3 (04:30→20:23)
[2018-09-28] MEDS: PHENYTOIN SUSP UDC 100 MG/4 ML UDC GT SCH ×3 (04:30→20:23)
[2018-09-28 04:31] LABS: CALCIUM, SERUM 8.3 mg/dL (8.5-10.1); CREATININE 0.6 mg/dL (0.6-1.3); POTASSIUM 4.1 mmol/L (3.5-5.1)
--- NOTE | 2018-09-28 07:15 | NUR ---
RECEIVED PATIENT INTUBATED 7.08/29 AND TOLERATING ORDERED VENT SETTINGS. PATIENT SEDATED ON VERSED 3.5MG/HR WITH SLIGHT AGITATION NOTED. PATIENT OPENS EYES SPONTANEOUSLY HOWEVER NOT FOLLOWING COMMANDS. TUBE FEEDING PER ORDER THROUGH NGT AND TOLERATING WITHOUT RESIDUALS. IV SITE C/D/I/P; DUE FOR DRESSING CHANGE TODAY. PATIENT PENDING TRANSFER TO HIGHER LEVEL OF CARE FOR CONTINUOUS EEG MONITORING AND POSSIBLE CEREBRAL ANGIO PER DR FLORENCE. SKIN, SAFETY, ASPIRATION, SEIZURE PRECAUTIONS IN PLACE AND WILL CONTINUE TO MONITOR.
[2018-09-28] MEDS: NEXIUM 40 MG VIAL IV SCH ×2 (08:16→16:42)
[2018-09-28] MEDS: LORATADINE 10 MG TABLET NG SCH (08:17)
[2018-09-28] MEDS: MULTIVIT W/MINERALS 1 TAB TABLET NG SCH (08:17)
[2018-09-28] MEDS: LEVOTHYROXINE INJ 100 MCG VIAL IV SCH (08:17)
[2018-09-28] MEDS: methylPREDNISolone SOD SUCC 125 MG/2ML VIAL IV SCH ×3 (08:17→16:40)
[2018-09-28] MEDS: LEVETIRACETAM SOL (5 ML) 100 MG/ML UDC GT SCH ×2 (08:17→20:23)
[2018-09-28] MEDS: METOPROLOL TARTRATE 25 MG TABLET PO SCH ×2 (08:19→20:24)
[2018-09-28] MEDS: Z GUARD REMEDY 2 OZ OINT TP SCH (08:19)
[2018-09-28] MEDS: IV NS 0.9% 250 ML IV PRN (08:20)
[2018-09-28] MEDS: CLOTRIMAZOLE 1% 15 GM TUBE TP SCH ×2 (08:20→16:40)
[2018-09-28] MEDS: TWOCAL HN 1,000 ML LIQUID NG PRN (08:21)
--- NOTE | 2018-09-28 09:00 | NUR ---
Apple PASTRANA AT BEDSIDE.AWARE PATIENT RIGHT ARM FLACCID. PER QUALITY IMPROVEMENT CONSULTANT THIS IS NOT NEW PATIENT HAD RECENT HX OF RIGHT HEMIPARESIS. WILL MONITOR
--- NOTE | 2018-09-28 09:45 | NUR ---
MESSAGE LEFT TO ADAM TO F/U ON WHAT TIME EEG WILL TAKE PLACE.
--- NOTE | 2018-09-28 10:00 | NUR ---
TUBE FEEDING PAUSED FOR DILANTIN ADMIN AT NOON PER ORDER
[2018-09-28] MEDS: MIDAZOLAM HCL 100 MG in IV NS 0.9% 80 ML IV PRN ×2 (10:32→18:03)
--- NOTE | 2018-09-28 10:40 | NUR ---
PATIENT CORE TEMP 100.8. PRN TYLENOL GIVEN. COOLING MEASURES INITIATED
[2018-09-28] MEDS: ACETAMINOPHEN 650 MG/20.3 ML UDC NG PRN (10:43)
--- NOTE | 2018-09-28 11:15 | NUR ---
SPOKE WITH DR FLORENCE. NOTIFIED PATIENT AWAKE AND COMFORTABLE ON 4MG/HR VERSED. PER MD PLEASE INCREASE TO 5MG/HOUR. OK TO TITRATE OFF VERSED IF ABLE ABOUT AN HOUR BEFORE EEG STARTS.
[2018-09-28] MEDS: Z GUARD REMEDY 2 OZ OINT TP PRN (12:21)
--- NOTE | 2018-09-28 14:20 | NUR ---
TUBE FEEDING RESUMED PER PROTOCOL.
--- NOTE | 2018-09-28 18:00 | NUR ---
VERSED TURNED OFF PER DR FLORENCE ORDER FOR EEG. EEG WILL BE COMPLETED AROUND 1900.
--- NOTE | 2018-09-28 19:00 | NUR ---
ICU/CERTIFICATION ENGINEER FEEDING PUMP OFF FOR 2100 MEDICATIONS
--- NOTE | 2018-09-28 19:14 | NUR ---
ADAM AT BEDSIDE FOR EEG. ALL DUE MEDS GIVEN AND ALL NEEDS MET. PATIENT CALM AND COOPERATIVE. SKIN, SAFETY, ASPIRATION, SEIZURE PRECAUTIONS IN PLACE AND MONITORED. TOLERATED TUBE FEEDING TODAY WITHOUT RESIDUALS. STOPPED TUBE FEEDING AT 1900 PENDING DILANTIN ADMIN AT 2100. PT TOLERATING VENT WITHOUT DIFFICULTY. NO SOB, DIFFICULTY BREATHING OR DISTRESS NOTED. CARE ENDORSED TO GUTIERREZ PEPE FOR URBANO.
--- NOTE | 2018-09-28 19:17 | NUR ---
ICU/BISTRO SERVER EDG TECH AT BEDSIDE TO TO STUDY. Addendum: 09/28/18 at 2139 by MY ORTEGA LVN URBAN GARDENING SPECIALIST DOING STUDY TO CALL MD WITH RESULTS AFTER
--- NOTE | 2018-09-28 20:04 | NUR ---
ICU/NEUROPSYCHIATRIST EDG TECH DONE WITH STUDY, CONTACT MD SAID TO START VERSED DRIP. CHARGE NURSE MADE AWARE OF STUDY COMPLETE.
[2018-09-28] MEDS: FLUCONAZOLE (100 MG) 100 MG TABLET GT SCH (20:23)
--- NOTE | 2018-09-28 21:45 | NUR ---
ICU/DIRECT CHILL CASTER PT WAS GIVEN MARIA ELENA CARE THEN TURNED AND REPOSITIONED FOR COMFORT AND CARE. WILL CONTINUE TO MONITOR THIS PT. PT NOW APPEARS TO BE COMFORTABLE.
--- NOTE | 2018-09-28 23:10 | NUR ---
ICU/AIRPLANE MECHANIC APPRENTICE FEEDING STARTED AT THIS TIME.
[2018-09-29] VITALS (26 sets, daily range): BP systolic 108–138; BP diastolic 70–95
--- NOTE | 2018-09-29 01:17 | NUR ---
ICU/MANUFACTURING ANALYST THROUGH AN ARCHITECTURAL TECHNOLOGIST, PT WAS ABLE TO MAKE HER WISHES KNOWN THAT SHE DID NOT WANT AM CARE. WILL TRY AGAIN LATER ON. CURRENTLY PT WAS TURNED AND REPOSITIONED FOR COMFORT AND CARE.
--- NOTE | 2018-09-29 03:25 | NUR ---
ICU/TINT LAYER PT WAS GIVEN AM CARE, ALONG WITH ORAL CARE. PT TOLERATED THIS WELL. PT REMAINS ON CURRENT SETTINGS, WITH SATURATION AT 98-100%. PT WAS TURNED AND REPOSITIONED FOR COMFORT AND CARE WILL CONTINUE TO MONITOR THIS PT. NO ACUTE DISTRESS SEEN AT THIS TIME.
[2018-09-29] MEDS: PHENYTOIN SUSP UDC 100 MG/4 ML UDC GT SCH ×3 (05:03→20:44)
[2018-09-29] MEDS: VALPROIC ACID 250 MG/5 ML UDC GT SCH ×3 (05:03→20:44)
[2018-09-29 05:07] LABS: BASOPHILS % (AUTO) 0.2 % (0.0-2.0); HEMATOCRIT 27 % (33-45); HEMOGLOBIN 9.1 g/dL (11.5-14.8); LYMPHOCYTES # (AUTO) 2.2 /CMM (0.8-4.8); LYMPHOCYTES % (AUTO) 32.7 % (20.0-44.0); MEAN CORPUSCULAR HGB CONC 34 g/dl (31.0-36.0); MEAN CORPUSCULAR VOLUME 95 fL (82-100); MONOCYTES # (AUTO) 0.6 /CMM (0.1-1.30); MONOCYTES % (AUTO) 8.8 % (2.0-12.0); NEUTROPHILS # (AUTO) 3.9 /CMM (1.8-8.9); NEUTROPHILS % (AUTO) 58.3 % (43.0-81.0); PLATELET COUNT (AUTO) 250 /CMM (150-450); RED BLOOD CELL COUNT(AUTO) 2.85 MIL/uL (4.0-5.2); WHITE BLOOD COUNT (AUTO) 6.7 K/uL (4.3-11.0)
[2018-09-29 05:21] LABS: CALCIUM, SERUM 8.4 mg/dL (8.5-10.1); CREATININE 0.7 mg/dL (0.6-1.3); POTASSIUM 4.3 mmol/L (3.5-5.1)
--- NOTE | 2018-09-29 05:33 | NUR ---
ICU/RECEIVING ASSOCIATE STORE AM LABS WERE DONE ALONG WITH CHEST XRAY. AWAIT FOR ANY ABNORMAL RESULTS.
--- NOTE | 2018-09-29 07:30 | NUR ---
INITIAL RECEIVED PATIENT IN BED, ORALLY INTUBATED, NO DISTRESS NOTED. PATIENT IS DISORIENTED, BEHAVIORAL RESTRAINS ARE ON SAFETY MEASURES IMPLEMENTED, PATIENT ON VERSED DRIP AT 3.5 MCG FOR CONTINUOUS SEIZURE AND SEIZURE PRECAUTIONS MAINTAINED. HOB ELEVATED PT ST AT 107 ON CHIEF OPERATOR REFORMER BED IN LOW POSITION CALL LIGHT NEXT TO PT WILL CONTINUE TO MONITOR
[2018-09-29] MEDS: LEVOTHYROXINE INJ 100 MCG VIAL IV SCH (07:52)
[2018-09-29 08:10] LABS: ABG OXYGEN SATURATION 98.1 % (92.0-98.5); ABG PCO2 37.9 mmHg (35.0-45.0); ABG PH 7.481 (7.350-7.450); ABG PO2 134.4 mmHg (75.0-100.0); COHb 0.3 % (0.5-1.5); MetHb 0.7 % (0.0-1.5); O2Hb 97.1 % (94.0-97.0); PEEP,BG 5 cm H2O; SITE, ABG Right Radial; VENT MODE, BG AC 12 400 30% +5; VT, ABG 400 mL
[2018-09-29] MEDS: NEXIUM 40 MG VIAL IV SCH ×2 (08:41→17:09)
[2018-09-29] MEDS: LEVETIRACETAM SOL (5 ML) 100 MG/ML UDC GT SCH ×2 (08:41→20:43)
[2018-09-29] MEDS: methylPREDNISolone SOD SUCC 125 MG/2ML VIAL IV SCH ×3 (08:42→17:09)
[2018-09-29] MEDS: MULTIVIT W/MINERALS 1 TAB TABLET NG SCH (08:42)
[2018-09-29] MEDS: METOPROLOL TARTRATE 25 MG TABLET PO SCH ×2 (08:42→20:48)
[2018-09-29] MEDS: LORATADINE 10 MG TABLET NG SCH (08:42)
[2018-09-29] MEDS: CLOTRIMAZOLE 1% 15 GM TUBE TP SCH ×2 (08:43→17:09)
[2018-09-29] MEDS: Z GUARD REMEDY 2 OZ OINT TP SCH (08:44)
--- NOTE | 2018-09-29 09:36 | NUR ---
TRAV SPOUSE OF SON ACTING VERY AGGRESSIVE DEMANDING TO KNOW EVERYTHING ABOUT THE PT AND TO SEE ALL DIAGNOSTIC PROCEDURES. SPOKE WITH SPOUSE OF PT ROSELIADick WHO GAVE VERBAL CONSENT FOR TRAV TO SEE PT INFORMATION. WENCESLAO PT IS INTUBATED AND ON VERSED DRIP
--- NOTE | 2018-09-29 09:45 | NUR ---
RT NOTE RECEIVED PT MECHANICALLY VENTILATED VIA 7.5 ETT 21 CM AT LIP. CUFF INFLATED. ETT SECURE. VENTILATOR SETTINGS FOLLOW AC 12 400 30% +5. ALARMS SET PER PROTOCOL AND AUDIBLE. VENT PLUGGED IN TO RED OUTLET. AMBU BAG AT BED SIDE. NO DISTRESS NOTED AT MOMENT. DIMINISHED BREATH SOUNDS HEARD UPON AUSCULTATION. SMALL THIN CAREY SECRETIONS FOUND UPON SUCTION. Addendum: 09/29/18 at 0947 by ROMAN LUO RT Amended: Links added.
--- NOTE | 2018-09-29 10:11 | NUR ---
ELVIAR PASTRANA PT MOLDER SETTER OVER HEAD THEN CALLED [facility]. AT AT 1012 VICTORIANO PRESENT TALKING TO FAMILY REQUESTED.
--- NOTE | 2018-09-29 10:22 | NUR ---
CALL [facility] FOR THE CRIMINALLY INSANE TRANSFER TO PATHOLOGY WHO CONFIRMED THAT THE LAB HAS BONE GROSS SAMPLE FOR PT PER PASTRANA REQUEST AT
--- NOTE | 2018-09-29 11:13 | NUR ---
SPECIALIST ICU CN SPOKE WITH FAMILY MEMBER CELESTE (CONTACT # ) ABOUT THEIR CONCERN REGARDING TESTING ON BONE MARROW BIOPSY FOR LEISCHMANIASIS. BIOPSY DONE AT [facility] (PATHOLOGY FAX ). PT'S WANTS TO ADD CELESTE TO THE LIST OF PEOPLE CONTACTED FOR ANY RESULTS/UPDATES. GRACE PASTRANA NP SPOKE WITH FAMILY ABOUT THEIR CONCERNS.
[2018-09-29] MEDS: TWOCAL HN 1,000 ML LIQUID NG PRN (15:16)
--- NOTE | 2018-09-29 18:50 | NUR ---
CLOSING PT WAS GIVEN AM CARE, ALONG WITH ORAL CARE. PT TOLERATED THIS WELL. PT REMAINS ON CURRENT SETTINGS, WITH SATURATION AT 98-100%. PT WAS TURNED AND REPOSITIONED FOR COMFORT AND CARE KEPT SAFE ALL SHIFT NO ACUTE DISTRESS SEEN AT THIS TIME. WILL GIVE RN REPORT TO PM SHIFT FOR CONTINUITY OF CARE
[2018-09-29] MEDS: FLUCONAZOLE (100 MG) 100 MG TABLET GT SCH (20:43)
[2018-09-29] MEDS: MIDAZOLAM HCL 100 MG in IV NS 0.9% 80 ML IV PRN (20:59)
[2018-09-30] VITALS (26 sets, daily range): BP systolic 112–144; BP diastolic 73–92
--- NOTE | 2018-09-30 01:02 | NUR ---
RT NOTE pt rec'd orally intubated via ETT sz #7.5 secured @ 21CM at the lip line. pt alert and awake. pt on noted [facility] vent settings per md orders. no resp distress noted. sx'd for mod amt of pale yellow secretions. alarms are set and audible. vent plugged into red outlet. ambu bag bedside. will continue to monitor. Addendum: 09/30/18 at 0102 by MIR FORRESTER RT Amended: Links added.
[2018-09-30 04:56] LABS: BASOPHILS % (AUTO) 0.5 % (0.0-2.0); EOSINOPHILS % (AUTO) 0.1 % (0.0-6.0); HEMATOCRIT 26 % (33-45); HEMOGLOBIN 8.6 g/dL (11.5-14.8); LYMPHOCYTES # (AUTO) 1.8 /CMM (0.8-4.8); LYMPHOCYTES % (AUTO) 27.6 % (20.0-44.0); MEAN CORPUSCULAR HGB CONC 34 g/dl (31.0-36.0); MEAN CORPUSCULAR VOLUME 95 fL (82-100); MONOCYTES # (AUTO) 0.8 /CMM (0.1-1.30); MONOCYTES % (AUTO) 12.4 % (2.0-12.0); NEUTROPHILS # (AUTO) 3.8 /CMM (1.8-8.9); NEUTROPHILS % (AUTO) 59.4 % (43.0-81.0); PLATELET COUNT (AUTO) 276 /CMM (150-450); RED BLOOD CELL COUNT(AUTO) 2.68 MIL/uL (4.0-5.2); WHITE BLOOD COUNT (AUTO) 6.4 K/uL (4.3-11.0)
[2018-09-30 05:06] LABS: CALCIUM, SERUM 8.2 mg/dL (8.5-10.1); CREATININE 0.6 mg/dL (0.6-1.3); POTASSIUM 4.2 mmol/L (3.5-5.1)
[2018-09-30] MEDS: VALPROIC ACID 250 MG/5 ML UDC GT SCH ×3 (06:51→21:04)
[2018-09-30] MEDS: PHENYTOIN SUSP UDC 100 MG/4 ML UDC GT SCH ×3 (06:51→21:04)
--- NOTE | 2018-09-30 07:24 | NUR ---
INITIAL RECEIVED PATIENT IN BED, ORALLY INTUBATED, NO DISTRESS NOTED. PATIENT IS DISORIENTED, BEHAVIORAL RESTRAINS ARE ON SAFETY MEASURES IMPLEMENTED, PATIENT ON VERSED DRIP AT 6.0 MCG FOR CONTINUOUS SEIZURE AND SEIZURE PRECAUTIONS MAINTAINED. HOB ELEVATED PT ST AT 107 ON VALVE TECHNICIAN BED IN LOW POSITION CALL LIGHT NEXT TO PT WILL CONTINUE TO MONITOR
[2018-09-30] MEDS: LEVOTHYROXINE INJ 100 MCG VIAL IV SCH (07:50)
[2018-09-30] MEDS: LEVETIRACETAM SOL (5 ML) 100 MG/ML UDC GT SCH ×2 (08:40→21:04)
[2018-09-30] MEDS: NEXIUM 40 MG VIAL IV SCH ×2 (08:40→16:30)
[2018-09-30] MEDS: LORATADINE 10 MG TABLET NG SCH (08:40)
[2018-09-30] MEDS: methylPREDNISolone SOD SUCC 125 MG/2ML VIAL IV SCH ×3 (08:40→16:19)
[2018-09-30] MEDS: MULTIVIT W/MINERALS 1 TAB TABLET NG SCH (08:40)
[2018-09-30] MEDS: METOPROLOL TARTRATE 25 MG TABLET PO SCH ×2 (08:41→21:03)
[2018-09-30] MEDS: CLOTRIMAZOLE 1% 15 GM TUBE TP SCH ×2 (08:57→16:20)
[2018-09-30] MEDS: Z GUARD REMEDY 2 OZ OINT TP SCH (08:58)
[2018-09-30] MEDS: MIDAZOLAM HCL 100 MG in IV NS 0.9% 80 ML IV PRN ×2 (09:28→16:21)
--- NOTE | 2018-09-30 12:06 | NUR ---
NICKYY DAUGHTER IN-LAW SPOKE WITH Aisha PASTRANA AFTER REQUISITION WAS MADE.
[2018-09-30 12:08] LABS: *ANA ANTI-CENTROMERE B AB <0.2 AI (0.0-0.9); *ANA ANTI-DNA(DS) AB, QN 154 IU/mL (0-9); *ANA ANTI-JO-1 <0.2 AI (0.0-0.9); *ANA ANTICHROMATIN ANTIBODY >8.0 AI (0.0-0.9); *ANA RNP ANTIBODIES 7.8 AI (0.0-0.9); *ANA SJOGREN'S ANTI-SS-A <0.2 AI (0.0-0.9); *ANA SJOGREN'S ANTI-SS-B <0.2 AI (0.0-0.9); *ANAANTI-SCLERODERMA-70 AB <0.2 AI (0.0-0.9); *ANASMITH AB >8.0 AI (0.0-0.9)
--- NOTE | 2018-09-30 12:12 | NUR ---
FAMILY INTERACTING WITH PT INSISTING ON DOING ORAL CARE
--- NOTE | 2018-09-30 13:08 | NUR ---
RE-PAGED RUKHSANA PASTRANA TO FIND OUT WHO THE DOCTOR THAT WILL BE TAKING OVER THE CASE FOR HIM. JOSE AFTER SPEAKING WITH VICTORIANO WAS TOLD HE WOULD BEHAVING ANOTHER DOCTOR HANDLE THE CASE AFTER SPEAKING AND MAKING INQUIRY THE MD WOULD BE DARIANA HOWEVER VICTORIANO INFORMED ME THAT HE HAS NOT PRESENTED THE CASE OF YET. FAMILY TOLD TOMORROW DARIANA WOULD SPEAK TO FAMILY.
--- NOTE | 2018-09-30 14:58 | NUR ---
FEEDINGS TURNED ON AT 1500 AFTER BEING TURNED OFF AT 1100
[2018-09-30] MEDS: IV NS 0.9% 250 ML IV PRN (16:33)
--- NOTE | 2018-09-30 18:26 | NUR ---
RN CLOSING NOTES PT REMAINS INTUBATED, ON VENT. NO RESPIRATORY DISTRESS NOTES. PT ON VERSED DRIP. TX PROVIDED ORDERED. KEPT CLEAN AND DRY. REPOSITIONED Q2. WILL ENDORSE FOR CONTINUITY OF CARE.
--- NOTE | 2018-09-30 19:30 | NUR ---
CLOCK REPAIR TECHNICIAN NOTES RECEIVED PT ON BED. SEDATED. ON TELE MONITOR SR. ON [facility] VENT SETTING NO RESPIRATORY DISTRESS NOTED. ET TUBE NOTED @ 7.5/. IV ACCESS ON FRANCESCA PICC WITH VERSED RUNNING @6MG/HR. PT ON SEIZURE PRECAUTION. HEAD OF BED ELEVATED. SIDE RAILS UP. CALL LIGHT WITHIN REACH. BED ALARM ON. WILL CONTINUE TO MONITOR PT CLOSELY.
--- NOTE | 2018-09-30 20:30 | NUR ---
SUBWAY REPAIR SUPERVISOR NOTES RASHES FOUND UPON INITIAL SKIN ASSESSMENT. APPLIED MEPILEX FOR PROTECTION.WILL MONITOR PT CLOSELY.
[2018-09-30] MEDS: FLUCONAZOLE (100 MG) 100 MG TABLET GT SCH (21:03)
--- NOTE | 2018-09-30 21:13 | NUR ---
PATTERN AND CHAIN MAKER NOTES PM MEDS GIVEN VIA NGT. VERIFIED PLACEMENT VIA AUSCULTATION BY 2 RN.
--- NOTE | 2018-09-30 22:00 | NUR ---
CHIEF OF STAFF NOTES UPDATED REGARDING PT CONDITION.
[2018-09-30] MEDS: TWOCAL HN 1,000 ML LIQUID NG PRN (22:55)
[2018-10-01] VITALS (26 sets, daily range): BP systolic 116–163; BP diastolic 78–97
--- NOTE | 2018-10-01 03:01 | NUR ---
CHRISTMAS TREE GROWER NOTES BEDBATH AND MOUTHCARE DONE. SEIZURE PRECAUTION OBSERVED.
[2018-10-01] MEDS: ACETAMINOPHEN 650 MG/20.3 ML UDC NG PRN ×2 (03:34→13:16)
--- NOTE | 2018-10-01 03:37 | NUR ---
DIRECTOR INVESTOR RELATIONS NOTES PT TEMP OF 99.7, COOLING MEASURES DONE AND PRN TYLENOL GIVEN . WILL MONITOR PT TEMP CLOSELY.
[2018-10-01 04:54] LABS: BASOPHILS % (AUTO) 0.2 % (0.0-2.0); EOSINOPHILS % (AUTO) 0.1 % (0.0-6.0); HEMATOCRIT 28 % (33-45); HEMOGLOBIN 9.4 g/dL (11.5-14.8); LYMPHOCYTES # (AUTO) 2.2 /CMM (0.8-4.8); LYMPHOCYTES % (AUTO) 27.4 % (20.0-44.0); MEAN CORPUSCULAR HGB CONC 34 g/dl (31.0-36.0); MEAN CORPUSCULAR VOLUME 95 fL (82-100); MONOCYTES # (AUTO) 1.1 /CMM (0.1-1.30); MONOCYTES % (AUTO) 13.1 % (2.0-12.0); NEUTROPHILS # (AUTO) 4.8 /CMM (1.8-8.9); NEUTROPHILS % (AUTO) 59.2 % (43.0-81.0); PLATELET COUNT (AUTO) 332 /CMM (150-450); RED BLOOD CELL COUNT(AUTO) 2.92 MIL/uL (4.0-5.2); WHITE BLOOD COUNT (AUTO) 8.1 K/uL (4.3-11.0)
[2018-10-01] MEDS: VALPROIC ACID 250 MG/5 ML UDC GT SCH ×3 (05:01→21:04)
[2018-10-01] MEDS: PHENYTOIN SUSP UDC 100 MG/4 ML UDC GT SCH ×3 (05:01→21:03)
[2018-10-01 05:06] LABS: CALCIUM, SERUM 8.3 mg/dL (8.5-10.1); CREATININE 0.6 mg/dL (0.6-1.3); POTASSIUM 4.4 mmol/L (3.5-5.1)
[2018-10-01 05:07] LABS: ALBUMIN 1.9 g/dL (3.4-5.0); BILIRUBIN,TOTAL 0.1 mg/dL (0.2-1.0); TOTAL PROTEIN, SERUM 6.1 g/dL (6.4-8.2)
--- NOTE | 2018-10-01 07:01 | NUR ---
CLINICAL NURSE EDUCATOR NOTES CALLED PHARMACY FOR VERSED DRIP REFILL.
--- NOTE | 2018-10-01 07:23 | NUR ---
HOSPICE BEREAVEMENT COORDINATOR NOTES NO ACUTE CHANGES NOTED DURING THE SHIFT. NO EPISODE OF SEIZURES NOTED. SEIZURE PRECAUTION OBSERVED. NO RESIDUAL NOTED ON NGT. TURNED AND REPOSITION Q2H. VERSED DRIP INFUSION CLEARED PER PROTOCOL. WILL ENDORSE TO THE AM NURSE FOR CONTINUITY OF CARE.
--- NOTE | 2018-10-01 07:30 | NUR ---
SCRAP DROP OPERATOR INITIAL NOTES PT RECEIVED, INTUBATED. ON VERSED DRIP AT 6MG/HR. PT IN AND OUT OF SEDATION. DOES NOT FOLLOW COMMANDS BUT OCCASIONALLY OPENS EYES. RESPONSIVE TO TACTILE STIMULI. VENT SETTINGS ASSESSED FRO ACCURACY. PT TOLERATING SETTINGS WELL. RIGHT UPPER ARM PICC NOTED TO BE C/D/I. NO REDNESS OR SIGNS OF INFILTRATION NOTED. PT NOTED WITH TEMP OF 100.9. TYLENOL PREVIOUSLY GIVEN BY NIGHTSHIFT RN. WILL INITIATE FURTHER COOLING MEASURES. PT NOTED TO BE SINUS TACH ON THE MONITOR. NG TUBE NOTED TO BE PATENT AND INTACT. PLACEMENT VERIFIED VIA AUSCULTATION. PT TOLERATING TUBE FEEDING WELL. BED IN LOW LOCKED POSITION, SIDE RAILS UP X3, LEFT ARM WRIST RESTRAINT NOTED FOR FURTHER SAFETY. NORMAL PERIPHERAL PULSES AND CAP REFILL NOTED. SEIZURE PRECAUTIONS OBSERVED. WILL CONTINUE TO MONITOR
[2018-10-01] MEDS: MULTIVIT W/MINERALS 1 TAB TABLET NG SCH (08:13)
[2018-10-01] MEDS: CLOTRIMAZOLE 1% 15 GM TUBE TP SCH ×2 (08:13→16:31)
[2018-10-01] MEDS: Z GUARD REMEDY 2 OZ OINT TP SCH (08:13)
[2018-10-01] MEDS: METOPROLOL TARTRATE 25 MG TABLET PO SCH ×2 (08:14→21:03)
[2018-10-01] MEDS: LORATADINE 10 MG TABLET NG SCH (08:14)
[2018-10-01] MEDS: LEVETIRACETAM SOL (5 ML) 100 MG/ML UDC GT SCH ×2 (08:14→21:04)
[2018-10-01] MEDS: methylPREDNISolone SOD SUCC 125 MG/2ML VIAL IV SCH ×3 (08:14→16:27)
[2018-10-01] MEDS: LEVOTHYROXINE INJ 100 MCG VIAL IV SCH (08:15)
[2018-10-01] MEDS: IV NS 0.9% 250 ML IV PRN (08:20)
[2018-10-01] MEDS: NEXIUM 40 MG VIAL IV SCH ×2 (08:27→16:27)
[2018-10-01] MEDS: MIDAZOLAM HCL 100 MG in IV NS 0.9% 80 ML IV PRN (08:33)
--- NOTE | 2018-10-01 09:00 | NUR ---
GAS PUMPING STATION OPERATOR NOTES: CDIFF SEND OUT PT NOTED TO HAVE THREE CONSECUTIVE LIQUID STOOLS. AD BEDSIDE. VERBAL ORDER OBTAINED TO SEND SAMPLE OUT FRO C DIFF. VERBAL ORDER ALSO OBTAINED TO INSERT F/C
--- NOTE | 2018-10-01 18:14 | NUR ---
EDITOR MAP NOTES: TRANSFER COORDINATION CALLED RECEIVED FROM LEONORA THE TIRE SHOP MANAGER AT [facility]. PER COORDINATOR, THE ACCEPTING PHYSICIAN HAS REQUESTED A CTA OR MRA BEFORE SHE CAN MAKE HER FINAL DECISION. MD WESTBROOK AND REVIVAL CLERK CHI MADE. TELEPHONE ORDER OBTAINED FOR CTA. PER REVIVAL CLERK, A PHYSICIAN AT [facility] HAS ALREADY ACCEPTED THE PT, HOWEVER WE ARE CURRENTLY WAITING FOR A BED. REVIVAL CLERK ALSO MADE AWARE THAT PT HAS A CURRENT CDIFF LAB PENDING AND MAY REQUIRE AN ISOLATION ROOM.
--- NOTE | 2018-10-01 19:11 | NUR ---
SAT INSTRUCTOR CLOSING NOTES PT REMAINS STABLE. ALL NEEDS ANTICIPATED FOR AND MET. ALL DUE MEDS GIVEN. PRN CARE RENDERED. PT KEPT CLEAN AND DRY THROUGHOUT SHIFT. INVASIVE LINES REMAINS PATENT AND INTACT. CTA ORDERED. TELEPHONE CONSENT FOR CONTRAST OBTAINED FROM PT'S . WILL ENDORSE TO NIGHTSHIFT RN TO COMPLETE EXAM AND CONTINUE CARE. SAFETY AND SEIZURE PRECAUTIONS REMAIN IN PLACE.
--- NOTE | 2018-10-01 19:30 | NUR ---
Received report from day shift.Patient on continuous sedation of Versed gtt via FRANCESCA PICC LINE. And NS at TKO.Site intact.Patient on full vent support at prescribed settings well tolerated.No Respiratory distress noted.NGT feeding on hold till 2300.SR.VS stable.Hemodynamically stable. FC and Flexi seal to gravity drainage.Aspiration ,Seizure,Skin and Cdiff precaution implemented. Awaiting for CTA of brain.
[2018-10-01] MEDS: FLUCONAZOLE (100 MG) 100 MG TABLET GT SCH (20:04)
[2018-10-01] MEDS ORDERED: CT SWABBABLE VALVE TRANS SET 1 EA INFUS.SET MC ONE (20:13)
[2018-10-01] MEDS ORDERED: IOHEXOL-350 100 ML VIAL IV ONE (20:13)
[2018-10-01] MEDS ORDERED: IV NS 0.9% 250 ML IV ONE (20:13)
--- NOTE | 2018-10-01 21:50 | NUR ---
Patient left for CTA BRAIN via ACLS protocol accompanied by RN,RT,and Radiology personnel in stable condition.
--- NOTE | 2018-10-01 22:20 | NUR ---
Patient back from CTA via ACLS protocol in stable condition.
[2018-10-02] VITALS (37 sets, daily range): BP systolic 123–159; BP diastolic 70–103
[2018-10-02] MEDS: MIDAZOLAM HCL 100 MG in IV NS 0.9% 80 ML IV PRN (00:43)
[2018-10-02] MEDS: VALPROIC ACID 250 MG/5 ML UDC GT SCH ×3 (05:00→20:43)
[2018-10-02] MEDS: PHENYTOIN SUSP UDC 100 MG/4 ML UDC GT SCH ×3 (05:00→20:40)
[2018-10-02 05:06] LABS: BASOPHILS % (AUTO) 0.3 % (0.0-2.0); EOSINOPHILS % (AUTO) 0.1 % (0.0-6.0); HEMATOCRIT 27 % (33-45); HEMOGLOBIN 9.1 g/dL (11.5-14.8); LYMPHOCYTES % (AUTO) 25.6 % (20.0-44.0); MEAN CORPUSCULAR HGB CONC 34 g/dl (31.0-36.0); MEAN CORPUSCULAR VOLUME 94 fL (82-100); MONOCYTES # (AUTO) 0.8 /CMM (0.1-1.30); MONOCYTES % (AUTO) 9.8 % (2.0-12.0); NEUTROPHILS # (AUTO) 5.1 /CMM (1.8-8.9); NEUTROPHILS % (AUTO) 64.2 % (43.0-81.0); PLATELET COUNT (AUTO) 329 /CMM (150-450); RED BLOOD CELL COUNT(AUTO) 2.82 MIL/uL (4.0-5.2); WHITE BLOOD COUNT (AUTO) 7.9 K/uL (4.3-11.0)
[2018-10-02 05:18] LABS: CALCIUM, SERUM 8.2 mg/dL (8.5-10.1); CREATININE 0.5 mg/dL (0.6-1.3); PHOSPHORUS 2.5 mg/dL (2.5-4.9); POTASSIUM 4.3 mmol/L (3.5-5.1)
[2018-10-02 05:34] LABS: PHENYTOIN (DILANTIN) 18.1 ug/ml (10.0-20.0)
--- NOTE | 2018-10-02 06:45 | NUR ---
Patient resting.VS remains stable.No significant change noted all throughout the shift.No seizure activity noted.All due medications administered.Remains sedated with versed gtt.AM care done. Turned and repositioned to comfort.Tube feeding well tolerated.Awaiting transfer to higher level of care.All needs met.
[2018-10-02] MEDS: LEVOTHYROXINE INJ 100 MCG VIAL IV SCH (08:16)
[2018-10-02] MEDS: MULTIVIT W/MINERALS 1 TAB TABLET NG SCH (08:17)
[2018-10-02] MEDS: LEVETIRACETAM SOL (5 ML) 100 MG/ML UDC GT SCH ×2 (08:17→20:43)
[2018-10-02] MEDS: methylPREDNISolone SOD SUCC 125 MG/2ML VIAL IV SCH ×3 (08:17→17:16)
[2018-10-02] MEDS: LORATADINE 10 MG TABLET NG SCH (08:17)
[2018-10-02] MEDS: NEXIUM 40 MG VIAL IV SCH ×2 (08:17→17:16)
[2018-10-02] MEDS: METOPROLOL TARTRATE 25 MG TABLET PO SCH ×2 (08:18→20:43)
[2018-10-02] MEDS: TWOCAL HN 1,000 ML LIQUID NG PRN (08:21)
[2018-10-02] MEDS: CLOTRIMAZOLE 1% 15 GM TUBE TP SCH ×2 (08:22→17:18)
[2018-10-02] MEDS: Z GUARD REMEDY 2 OZ OINT TP SCH (08:22)
--- NOTE | 2018-10-02 08:59 | NUR ---
INITIAL VALET CASHIER NOTE RCVD PT SEDATED ON VERSED, INTUBATED 7.5 AT LIP TOLERATING ORDERED VENT SETTINGS WELL, ST ON MONITOR, GENERALIZED EDEMA PRESENT, NG-TUBE PLACEMENT VERIFIED BY AUSCULTATION/ASPIRATION OF GASTRIC CONTENTS, NO RESIDUAL OBTAINED, TOLERATING TUBE FEEDING RATE. CHACON TO GRAVITY DRAINING CLEAR, YELLOW URINE. RECTAL TUBE IN PLACE DRAINING LIQUID BROWN STOOL. FRANCESCA PICC C/D/I/PATENT, NO S/O INFILTRATION/PHLEBITIS OBSERVED UPON FLUSHING. WILL CONTINUE TO MONITOR PT FOR SAFETY AND COMFORT, CALL LIGHT WITHIN REACH, HEAD OF BED ELEVATED. PER REPORT PT PENDING TRANSFER FOR HIGHER LEVEL OF CARE. PT'S FAMILY AT BEDSIDE UPDATED BY LINDA TOUSSAINT AND AKASH HERNANDEZ
[2018-10-02] MEDS ORDERED: CEFTRIAXONE 500 MG VIAL ONE (14:18)
[2018-10-02] MEDS ORDERED: LIDOCAINE /MPF 1% VIAL 5 ML VIAL ONE (14:18)
[2018-10-02] MEDS ORDERED: AZITHROMYCIN 250 MG TABLET ONE (14:18)
[2018-10-02] MEDS: METRONIDAZOLE 250 MG TABLET PO SCH ×2 (15:09→21:40)
--- NOTE | 2018-10-02 17:57 | NUR ---
SAP SOLUTIONS ARCHITECT NOTE SPOKE WITH ALVINO FROM [facility] WHO RELEASED BED 64[address] ICU [address] RR [facility] REQUESTED CD WITH ALL RADIOLOGIC TESTS WHICH WAS REQUESTED ALREADY, TO CALL [phone] OPTION 2 WHEN TRANSPORT ARRIVES TO PICK PT UP. LINDA TOUSSAINT INFORMED TO MAKE TRANSPORTATION ARRANGEMENTS. AMBULANCE WILL BE SCHEDULED AT 1900. JOSI GORDON INFORMED TO ASSIST WITH PAPERWORK. LINDA TOUSSAINT TO INFORM PT'S FAMILY ABOUT TRANSFER.
--- NOTE | 2018-10-02 19:20 | NUR ---
EXPERIMENTAL ASSEMBLER NOTE PT'S CARE ENDORSED TO LYNN DELAROSA WITH INSTRUCTIONS FOR TRANSFER AND TO [facility] [phone] OPTION 2 WHEN AMBULANCE ARRIVES. PER ALVINO AT [facility] RR NO NEED TO CALL REPORT SINCE REPORT WAS GIVEN TO HER BY RN ALREADY. [place] AWARE. PT REMAINS STABLE, NO S/O DISTRESS OBSERVED. TUBE FEEDING STOPPED AT ~1900 FOR SEIZURE MEDICATION DOSE AT 2100. PT'S COMPOSITE ENGINEER SCHEDULED AFTER 2000 TONIGHT. PER LINDA TOUSSAINT PT'S SON AWARE OF TRANSFER.
--- NOTE | 2018-10-02 19:30 | NUR ---
BELL PERSON INITIAL SHIFT NOTES RECEIVED PATIENT IN BED, SEDATED ON VERSED GTT, CURRENTLY @ 2MG/HR. ORALLY INTUBATED, ETT 7.5, 21CM @ LIP LINE, VENT SETTINGS: AC 12, TV 400, FIO2 25%, PEEP 5. LEFT NARE NGT PATENT AND INTACT, TUBE FEEDING ON HOLD, TO BE RESUMED @ 2300. FRANCESCA PICC PATENT AND INTACT, VERSED GTT @ 2MG/HR, OTHER PORT TKO. LEFT HAND SOFT WRIST RESTRAINT IN PLACE DUE TO SELF EXTUBATION RISK. RECTAL TUBE PATENT AND INTACT, WITH LIQUID BROWN STOOL OUTPUT, CHACON CATHETER WITH CLEAR YELLOW URINE. PENDING TRANSFER TO [facility] FOR HIGHER LEVEL OF CARE
--- NOTE | 2018-10-02 20:30 | NUR ---
TIMBER BUCKER NOTES CALLED TIMMY, SPOKE TO ALVINO REGARDING DELAY, AMBULANCE TO AUTOMOBILE CONTRACT CLERK PATIENT FROM [facility] @ 2230. CALLED AND SPOKE TO PATIENT'S , STEVEN, MADE AWARE REGARDING DELAY OF PICKUP TO 10:30PM. WILL CONTINUE TO CLOSELY MONITOR THE PATIENT
[2018-10-02] MEDS: FLUCONAZOLE (100 MG) 100 MG TABLET GT SCH (20:38)
--- NOTE | 2018-10-02 23:30 | NUR ---
LAMP MECHANIC NOTES [facility] STAFF AT BEDSIDE FOR TRANSFER TO [facility], UNIT [address] [id number]. REPORT GIVEN TO TRANSPORT NURSE DASH GOMEZ, AND JOHN. APPROXIMATELY 15ML OF VERSED LEFT IN BAG, ENDORSED TO JASON TO CONTINUE EN ROUTE TO [facility].
[2018-10-03] MEDS ORDERED: VANCOMYCIN HCL 125 MG/2.5 ML ORAL.SUSP PO SCH
[2018-10-03] MEDS: MIDAZOLAM HCL 100 MG in IV NS 0.9% 80 ML IV PRN (00:20)
--- NOTE | 2018-10-03 00:20 | NUR ---
ICU/RN-CURRENT BAG OF VERSED DRIP ADMINISTERED BY CCT AMBULANCE RN JASON LOPEZ AT 3MG/HR EN ROUTE TO [facility].
--- NOTE | 2018-10-03 00:30 | NUR ---
ARBORER NOTES - DISCHARGE PER [facility] STAFF, VERSED DRIP ALMOST EMPTY, UNABLE TO TRANSPORT PATIENT WITHOUT VERSED GTT. NEW BAG OF VERSED GTT GIVEN TO [facility] STAFF DASH GOMEZ KIEIN. PATIENT LEFT ICU, VITAL SIGNS STABLE AT THIS TIME, NO SEIZURE ACTIVITY NOTED THROUGHOUT THE SHIFT. CALLED AND SPOKE TO PATIENT'S SON ENRICO, TO NOTIFY REGARDING PATIENT LEAVING [facility].
== END 2018-10-03 00:32 | disposition short-term general hospital (02) | DRG 720 ==
LOC: ER 21:18 → ICU 22:14 → TELE1 09-15 11:42 → MEDSG1 09-16 10:25 → TELE-TD 09-20 10:46 → ICU 09-20 16:03
PROVIDERS: ADMIT Student in an Organized Health Care Education/Training Program; ATTEND Student in an Organized Health Care Education/Training Program
PROC: B548ZZA Ultrasonography of Superior Vena Cava, Guidance (ICD-10-PCS; principal; 2018-09-08)
PROC: 0BH17EZ Insertion of Endotracheal Airway into Trachea, Via Natural or Artificial Opening (ICD-10-PCS; principal; 2018-09-08)
PROC: 02HV33Z Insertion of Infusion Device into Superior Vena Cava, Percutaneous Approach (ICD-10-PCS; principal; 2018-09-08)
PROC: 5A1955Z Respiratory Ventilation, Greater than 96 Consecutive Hours (ICD-10-PCS; principal; 2018-09-08)
PROC: 30233N1 Transfusion of Nonautologous Red Blood Cells into Peripheral Vein, Percutaneous Approach (ICD-10-PCS; 2018-09-09)
PROC: 0BH17EZ Insertion of Endotracheal Airway into Trachea, Via Natural or Artificial Opening (ICD-10-PCS; 2018-09-27)
PROC: 5A1955Z Respiratory Ventilation, Greater than 96 Consecutive Hours (ICD-10-PCS; 2018-09-27)
DX: A41.9 Sepsis, unspecified organism (principal); I21.A1 Myocardial infarction type 2; J96.01 Acute respiratory failure with hypoxia; J69.0 Pneumonitis due to inhalation of food and vomit; G93.41 Metabolic encephalopathy; N17.0 Acute kidney failure with tubular necrosis; R65.21 Severe sepsis with septic shock; J15.6 Pneumonia due to other Gram-negative bacteria; K56.7 Ileus, unspecified; E87.1 Hypo-osmolality and hyponatremia; D62 Acute posthemorrhagic anemia; M32.9 Systemic lupus erythematosus, unspecified; E44.0 Moderate protein-calorie malnutrition; E87.2 Acidosis; I25.10 Atherosclerotic heart disease of native coronary artery without angina pectoris; I25.2 Old myocardial infarction; D61.818 Other pancytopenia; E03.9 Hypothyroidism, unspecified; J98.11 Atelectasis; I70.0 Atherosclerosis of aorta; M85.80 Other specified disorders of bone density and structure, unspecified site; Z79.52 Long term (current) use of systemic steroids; Z98.84 Bariatric surgery status; Z87.11 Personal history of peptic ulcer disease; G81.91 Hemiplegia, unspecified affecting right dominant side; D50.9 Iron deficiency anemia, unspecified; B37.0 Candidal stomatitis; R47.01 Aphasia; G40.909 Epilepsy, unspecified, not intractable, without status epilepticus
CPT/HCPCS: 31720; 36415; 36569; 36600; 70450-TC; 70470-TC; 70496-TC; 70551-TC; 71045-TC; 74018; 80048-TC; 80053-TC; 80061-TC; 80076-TC; 80164-TC; 80185-TC; 80305; 81000-TC; 82140-TC; 82232; 82272-TC; 82533; 82728-TC; 82784; 82803-TC; 83540-TC; 83605-TC; 83615-TC; 83735-TC; 84100-TC; 84155; 84165; 84439-TC; 84443-TC; 84480; 84484-TC; 85025-TC; 85027-TC; 85045-TC; 85652-TC; 85730-TC; 86140; 86225; 86235; 86334; 86850-TC; 86880-TC; 86921-TC; 87040-TC; 87070-TC; 87081-TC; 87086-TC; 87806; 89051-TC; 92526; 92611-TC; 93307-TC; 94002-TC; 94003-TC; 94640-TC; 94760-TC; 94799-TC; 95819-TC; 97530-TC; 99082-TC; A4216; A6403; G0378; G0480; J0133; J0330; J0360; J0692; J0696; J1165; J1450; J1940; J1953; J2060; J2185; J2250; J2405; J2916; J2930; J3010; J3370; J3420; J3475; J3490; J7030; J7040; J7042; J7050; J7060; J7120; P9016-BL; Q9967